=== PATIENT | male | born 1960 | race Caucasian/White ===

== ENCOUNTER 2019-06-16 09:04 | Outpatient (CLI) | payer MEDICARE, SELFPAY ==
--- NOTE | 2019-06-16 | ECHO_ITS ---
Patient Info Name: Joe Meyer Age: 58 years : 1960 Gender: Male Ht: 73 in Wt: 330 lbs BSA: 2.84 m2 HR: 65 bpm BP: 164 / 113 mmHg Heart Rhythm: Sinus Rhythm Exam Date: 06/16/2019 9:32 AM Exam Location: [facility] Patient Status: Outpatient Admit Date: 06/16/2019 Staff Ordering Physician: Abhijit, Lynn Perry APRN Gas Plumbing Inspector: Denita Schulz RDCS Attending Provider: Abhijit, Lynn Perry APRN Referring Physician: Jasmyne CHENEY; Exam Type: CA echo doppler color flow Study Info Indications R06.02 - Shortness of breath Complete two-dimensional, color flow and Doppler transthoracic echocardiogram is performed. Summary 1. Left ventricular systolic function is normal, estimated at 55-60%. 2. There is moderately increased left ventricular wall thickness. 3. The left ventricular diastolic function is grade I diastolic dysfunction. 4. Left atrial chamber dimension is mildly enlarged. 5. There is trace mitral valve regurgitation. 6. There is mild aortic valve sclerosis. 7. There is mild aortic valve regurgitation. 8. There is trace tricuspid valve regurgitation. 9. No pulmonary hypertension, estimated pulmonary arterial systolic pressure is 13 mmHg. Left Ventricle Left ventricular chamber dimension is normal. Left ventricular systolic function is normal, estimated at 55-60%. There is moderately increased left ventricular wall thickness. Left ventricular septal wall motion is normal. The left ventricular diastolic function is grade I diastolic dysfunction. Right Ventricle Right ventricular chamber dimension is normal. Right ventricular systolic function is normal. Left Atria Left atrial chamber dimension is mildly enlarged. Right Atria Right atrial chamber dimension is normal. Atrial Septum Intact interatrial septum visualized by color flow imaging. Aortic Valve The aortic valve is trileaflet. There is mild aortic valve sclerosis. There is no aortic valve stenosis. There is mild aortic valve regurgitation. Pulmonic Valve The pulmonic valve is normal. There is no pulmonic valve stenosis. There is no pulmonic regurgitation. Mitral Valve The mitral valve has normal leaflets. There is no mitral valve stenosis. There is trace mitral valve regurgitation. Tricuspid Valve The tricuspid valve leaflets are normal. There is no significant tricuspid valve stenosis. There is trace tricuspid valve regurgitation. No pulmonary hypertension, estimated pulmonary arterial systolic pressure is 13 mmHg. Pericardium/Pleural The pericardium appears normal. There is no pericardial effusion. Inferior Vena Cava Normal inferior vena cava with >50% collapse upon inspiration consistent with Empty right atrial pressure, 5 mmHg. Aorta The aortic root size at the sinus of Valsalva is normal. The prox ascending aorta size is normal. Left Ventricular Outflow Tract Name Value Normal LVOT 2D LVOT Diameter 2.3 cm LVOT Doppler LVOT Peak Gradient 4 mmHg LVOT Mean Gradient 2 mmHg LVOT VTI 21 cm
== END 2019-06-16 09:05 | disposition home or self-care (01) ==
PROVIDERS: PCP Family Medicine; Visit Provider Nurse Practitioner Family
DX: R06.02 Shortness of breath (principal); I51.7 Cardiomegaly; I35.2 Nonrheumatic aortic (valve) stenosis with insufficiency
CPT/HCPCS: 93306

== ENCOUNTER 2019-09-26 12:48 | Outpatient (CLI) | payer MEDICARE, SELFPAY ==
[2019-09-26 13:39] LABS: Basophils Absolute Auto 0.1 K/mm3 (0.0-0.1); Basophils Percent Auto 1.1 % (0.2-1.2); Eosinophils Absolute Auto 0.4 K/mm3 (0-0.3); Eosinophils Percent Auto 5.2 % (0-4.4); Hematocrit 34.2 % (42.0-52.0); Hemoglobin 10.1 g/dL (14.0-18.0); Immature Granulocyte Absolute 0.02 K/mm3 (0.00-0.031); Immature Granulocyte Percent A 0.3 % (0-0.5); Lymphocytes Absolute Auto 2.05 K/mm3 (0.9-3.2); Lymphocytes Percent Auto 28.3 % (18.3-44.2); Mean Corpuscular HGB Conc 29.5 g/dl (32-36); Mean Corpuscular Hemoglobin 21.4 pg (26-34); Mean Corpuscular Volume 72.6 fl (80-100); Mean Platelet Volume 11.4 fl (7.4-10.4); Monocytes Absolute Auto 0.6 K/mm3 (0.1-0.6); Neutrophils Absolute Auto 4.1 K/mm3 (1.3-6.7); Neutrophils Percent Auto 57.1 % (45.5-73.1); Platelet Count Result 217 k/mm3 (150-375); Red Blood Count 4.71 M/mm3 (4.6-6.20); Red Cell Distribution Width 17.3 % (11.5-14.5); White Blood Count 7.2 K/mm3 (4.5-10.0)
[2019-09-26 13:51] LABS: Hemoglobin A1C 6.5 % (<5.7)
[2019-09-26 14:08] LABS: Blood Urea Nitrogen 11 mg/dL (9-20); Calcium 8.5 mg/dL (8.4-10.2); Carbon Dioxide 27 mmol/L (22-30); Chloride 106 mmol/L (98-107); Estimated Glomerular Filt Rate > 60; Glucose 107 mg/dL (75-110); Potassium 3.9 mmol/L (3.4-5.0); Sodium 139 mmol/L (137-145)
[2019-09-26 14:11] LABS: Iron 33 ug/dL (49-181)
[2019-09-26 14:20] LABS: Percent Iron Saturation 7 % (20-50)
[2019-09-27 15:31] LABS: Ferritin 7.52 ng/mL (11.1-264)
== END 2019-09-26 12:49 | disposition home or self-care (01) ==
PROVIDERS: PCP Family Medicine; Visit Provider Nurse Practitioner Family
DX: R53.83 Other fatigue (principal); R73.01 Impaired fasting glucose; D64.9 Anemia, unspecified
CPT/HCPCS: 36415; 80048; 82607; 82728; 83036; 83540; 83550; 85025

== ENCOUNTER 2019-10-11 09:03 | Outpatient (CLI) | payer MEDICARE, SELFPAY ==
--- NOTE | 2019-10-11 11:00 | NEURO_ITS ---
Patient Number: [id number] Impression: # Complains of numbness all over with gait dysfunction and pain in legs. # Left mild Carpal Tunnel Syndrome. 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 # Abnormal needle/EMG exam with involvement of distal muscles. Nerve Conduction Studies Anti Sensory Summary Table Stim Site NR Peak (ms) P-T Amp (?V) Site1 Site2 Delta-P (ms) Dist (cm) Jermaine (m/s) Left Median Anti Sensory (2-3nd Digit) Wrist 3.6 24.3 Wrist 2-3nd Digit 3.6 14.0 39 Wrist 3.5 34.5 Wrist 2-3nd Digit 3.6 14.0 39 Right Median Anti Sensory (2-3nd Digit) Wrist 3.2 14.5 Wrist 2-3nd Digit 3.2 14.0 44 Wrist 3.2 28.2 Wrist 2-3nd Digit 3.2 14.0 44 Left Radial Anti Sensory (Base 1st Digit) Wrist 2.6 10.6 Wrist Base 1st Digit 2.6 0.0 Right Radial Anti Sensory (Base 1st Digit) Wrist 2.6 14.9 Wrist Base 1st Digit 2.6 0.0 Left Sup Fibular Anti Sensory (Ant Lat Mall) 14 cm 3.8 22.4 14 cm Ant Lat Mall 3.8 16.0 42 Right Sup Fibular Anti Sensory (Ant Lat Mall) 14 cm 3.7 20.9 14 cm Ant Lat Mall 3.7 16.0 43 Left Sural Anti Sensory (Lat Mall) Calf 4.3 4.8 Calf Lat Mall 4.3 16.0 37 Right Sural Anti Sensory (Lat Mall) Calf 3.0 12.9 Calf Lat Mall 3.0 16.0 53 Left Ulnar Anti Sensory (5th Digit) Wrist 2.7 18.0 Wrist 5th Digit 2.7 14.0 52 Right Ulnar Anti Sensory (5th Digit) Wrist 2.7 12.7 Wrist 5th Digit 2.7 14.0 52 Motor Summary Table Stim Site NR Onset (ms) O-P Amp (mV) Site1 Site2 Delta-0 (ms) Dist (cm) Jermaine (m/s) Left Median Motor (Abd Poll Brev) Wrist 4.4 2.2 Elbow Wrist 5.2 31.0 60 Elbow 9.6 1.9 Right Median Motor (Abd Poll Brev) Wrist 3.6 1.6 Elbow Wrist 5.6 33.0 59 Elbow 9.2 1.5 Left Peroneal Motor (Vastus Med) Ankle 6.4 0.4 Popit Ankle 12.9 42.0 33 Popit 19.3 0.3 Right Peroneal Motor (Vastus Med) Ankle 4.8 1.5 Popit Ankle 11.8 41.0 35 Popit 16.6 1.0 Left Tibial Motor (Abd Nj Brev) Ankle 5.8 1.1 Knee Ankle 11.1 46.0 41 Knee 16.9 1.0 Right Tibial Motor (Abd Nj Brev) Ankle 4.7 1.1 Knee Ankle 12.9 47.0 36 Knee 17.6 1.2 Left Ulnar Motor (Abd Dig Minimi) Wrist 3.0 4.7 A Elbow Wrist 5.5 31.0 56 A Elbow 8.5 3.3 Right Ulnar Motor (Abd Dig Minimi) Wrist 3.2 2.9 A Elbow Wrist 5.6 32.0 57 A Elbow 8.8 2.4 F Wave Studies NR F-Lat (ms) L-R F-Lat (ms) Left Median (Mrkrs) (Abd Poll Brev) 32.87 0.41 Right Median (Mrkrs) (Abd Poll Brev) 32.46 0.41 Left Peroneal (Mrkrs) (EDB) NO RESPONSE NR Right Peroneal (Mrkrs) (EDB) 69.73 Left Tibial (Mrkrs) (Abd Hallucis) 68.57 0.99 Right Tibial (Mrkrs) (Abd Hallucis) 67.58 0.99 Left Ulnar (Mrkrs) (Abd Dig Min) 33.43 0.71 Right Ulnar (Mrkrs) (Abd Dig Min) 32.71 0.71 EMG Side Muscle Nerve Root Ins Act Fibs Amp Dur Recrt Comment Right 1stDorInt Ulnar C8-T1 Nml Nml Nml Nml Nml Right Ext Indicis Radial (Post Int) C7-8 Nml Nml Nml Nml Nml Right Ext Digitorum Radial (Post Int) C7-8 Nml Nml Nml Nml Nml Right BrachioRad Radial C5-6 Nml Nml Nml Nml Nml Right PronatorTeres Median C6-7 Nml Nml Nml Nml Nml Right Abd Poll Brev Median C8-T1 Nml Nml Nml Nml Nml
== END 2019-10-11 09:04 | disposition home or self-care (01) ==
PROVIDERS: PCP Family Medicine; Visit Provider Psychiatry & Neurology Neurology
DX: G62.9 Polyneuropathy, unspecified (principal); G56.02 Carpal tunnel syndrome, left upper limb
CPT/HCPCS: 95886; 95913

== ENCOUNTER 2019-11-03 16:35 | Outpatient (CLI) | payer MEDICARE, SELFPAY ==
--- NOTE | ~2019-11-03 | XR_ITS ---
EXAMINATION: XR shoulder RT min 2V INDICATION: Right shoulder pain TECHNIQUE: Four views of the right shoulder are submitted. COMPARISON: None FINDINGS: Normal alignment. No fracture. Glenohumeral and acromioclavicular joint spaces demonstrate mild osteoarthritis. Soft tissues are unremarkable. IMPRESSION: 1. No acute osseous abnormality. Reviewed, dictated and finalized at location A.
--- NOTE | ~2019-11-03 | XR_ITS ---
EXAMINATION: XR shoulder LT min 2V INDICATION: Left shoulder pain after fall TECHNIQUE: Four views of the left shoulder are submitted. COMPARISON: 10/22/2016 FINDINGS: Normal alignment. No fracture. Again noted is moderate osteoarthritis of the glenohumeral j oint. There appears to have been interval surgical change involving the acromioclavicular joint. Soft tissues are unremarkable. IMPRESSION: 1. No acute osseous abnormality. Reviewed, dictated and finalized at location A.
--- NOTE | ~2019-11-03 | XR_ITS ---
EXAMINATION:XR cervical spine 4-5V DATE: 11/03/2019 17:19 INDICATION: Neck pain TECHNIQUE: AP, lateral, lateral swimmers and odontoid views of the cervical spine are provided. COMPARISON: 10/23/2019 FINDINGS: Alignment is normal. The odontoid is intact. No fracture is identified. The vertebral body heights are maintained. There is moderate loss of intervertebral disc space height at C5-6 and C6-7. Degenerative osteophytes project from the anterior endplates of multiple vertebral bodies. Prevertebr al soft tissues are normal. There is moderate multilevel facet and mild multilevel uncovertebral join t osteoarthritis. IMPRESSION: 1. Moderate cervical spondylosis without acute findings or significant interval change. Reviewed, dictated and finalized at location A.
--- NOTE | ~2019-11-03 | XR_ITS ---
EXAMINATION: XR lumbar spine 2-3V DATE: 11/03/2019 17:20 INDICATION: Low back pain TECHNIQUE: Anteroposterior and lateral views of the lumbar spine, and cone-down lateral view of the l umbosacral junction were obtained. COMPARISON: CT, 12/08/2017 FINDINGS: There is unchanged mild loss of intervertebral disc space height at L4-5. No fracture is id entified. The vertebral body heights are maintained. Alignment is normal. There is calcified atherosc lerosis. IMPRESSION: 1. Mild lumbar spondylosis without acute findings or significant interval change. Reviewed, dictated and finalized at location A. IMPRESSION: 1. Mild lumbar spondylosis without acute findings or significant interval patricia lovelace
--- NOTE | ~2019-11-03 | XR_ITS ---
EXAMINATION: XR thoracic spine 3V DATE: 11/03/2019 17:20 INDICATION: Back pain after fall TECHNIQUE: AP, lateral and lateral swimmer's views of the thoracic spine were obtained. COMPARISON: 11/06/2016 FINDINGS: There is chronic mild anterior wedging in the midthoracic spine. No fracture is identified. The vertebral body heights and alignment are normal. There is mild loss of intervertebral disc space height in the midthoracic spine. Small degenerative osteophytes project from the anterior endplates of multiple vertebral bodies. IMPRESSION: 1. Mild thoracic spondylosis without acute findings or significant interval change. Reviewed, dictated and finalized at location A. IMPRESSION: 1. Mild thoracic spondylosis without acute findings or significant interval toan e.
--- NOTE | ~2019-11-03 | XR_ITS ---
EXAMINATION: XR sacrum coccyx min 2V INDICATION: Sacral pain after fall TECHNIQUE: Three views of the sacrum and coccyx are obtained. COMPARISON: 10/22/2016 FINDINGS: There is no fracture. Bone alignment is normal. The soft tissues are unremarkable. There is mild lower lumbar spondylosis. IMPRESSION: 1. No acute osseous abnormality. Reviewed, dictated and finalized at location A.
== END 2019-11-03 16:36 | disposition home or self-care (01) ==
PROVIDERS: PCP Family Medicine; Visit Provider Nurse Practitioner
DX: M47.896 Other spondylosis, lumbar region (principal); M47.894 Other spondylosis, thoracic region; M47.892 Other spondylosis, cervical region
CPT/HCPCS: 72050; 72072; 72100; 72220; 73030

== ENCOUNTER 2019-11-03 17:18 | Emergency (ER) | payer MEDICARE, SELFPAY ==
[2019-11-03 17:20] VITALS: BP 140/85; PULSE 78; RESP 20; TEMP 36; O2SAT 97
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
[2019-11-03 18:04] VITALS: PULSE 79
[2019-11-03 18:09] VITALS: BP 143/89; PULSE 76; RESP 10; O2SAT 98
[2019-11-03 18:38] VITALS: BP 144/80; PULSE 76; RESP 17; O2SAT 100
[2019-11-03 19:19] VITALS: BP 152/95; PULSE 77; RESP 18; O2SAT 98
== END 2019-11-03 19:20 | disposition home or self-care (01) ==
PROVIDERS: Emergency Provider Emergency Medicine; PCP Family Medicine
DX: I10 Essential (primary) hypertension (principal); R20.2 Paresthesia of skin; Z87.891 Personal history of nicotine dependence
CPT/HCPCS: 99282

== ENCOUNTER 2019-12-06 13:44 | Outpatient (CLI) | payer MEDICARE, SELFPAY ==
--- NOTE | ~2019-12-06 | MR_ITS ---
EXAMINATION: MR cervical spine wo con DATE: 12/06/2019 14:38 INDICATION: Neck pain. TECHNIQUE: Magnetic resonance imaging (MRI) of the cervical spine was performed without intravenous c ontrast. Sequences included sagittal T2-weighted FSE, sagittal STIR FSE, sagittal T1-weighted FSE, ax ial MERGE, and axial T2-weighted FSE. COMPARISON: Cervical spine radiographs 11/03/2019 FINDINGS: Bone alignment is normal. Vertebral body heights are normal. There is mildly decreased disc height at C3-C4 and C6-C7. The spinal cord signal intensity is normal. The following disc levels are specifically discussed: C2-C3: The disc does not extend beyond the endplate margin. There is mild left uncovertebral joint os teoarthritis. There is mild right and severe left facet joint osteoarthritis. There is moderate left neural foraminal stenosis. There is no central canal stenosis. C3-C4: The disc is bulging. There is mild right and severe left uncovertebral joint osteoarthritis. T here is mild right and moderate left facet joint osteoarthritis. There is severe left neural foramina l stenosis. There is mild central canal stenosis. C4-C5: The disc does not extend beyond the endplate margin. There is mild bilateral uncovertebral jun nt osteoarthritis. There is moderate left facet joint osteoarthritis. There is mild left neural alonso inal stenosis. There is no central canal stenosis. C5-C6: The disc is bulging. There is mild right and moderate left uncovertebral joint osteoarthritis. There is mild left facet joint osteoarthritis. There is mild left neural foraminal stenosis. There i s mild central canal stenosis. C6-C7: The disc is bulging. There is severe bilateral uncovertebral joint osteoarthritis. There is mi ld left facet joint osteoarthritis. There is mild bilateral neural foraminal stenosis. There is mild central canal stenosis. C7-T1: The disc does not extend beyond the endplate margin. There is no uncovertebral joint osteoarth ritis. There is mild bilateral facet joint osteoarthritis. There is no neural foraminal stenosis. The re is no central canal stenosis. IMPRESSION: 1. Moderate cervical spondylosis. Reviewed, dictated and finalized at location B.
== END 2019-12-06 13:45 | disposition home or self-care (01) ==
PROVIDERS: PCP Family Medicine; Visit Provider Psychiatry & Neurology Neurology
DX: M47.892 Other spondylosis, cervical region (principal)
CPT/HCPCS: 72141

== ENCOUNTER 2019-12-14 16:14 | Outpatient (CLI) | payer MEDICARE, SELFPAY ==
[2019-12-14 18:05] LABS: Basophils Absolute Auto 0.1 K/mm3 (0.0-0.1); Basophils Percent Auto 1.1 % (0.2-1.2); Eosinophils Absolute Auto 0.4 K/mm3 (0-0.3); Hematocrit 33.8 % (42.0-52.0); Hemoglobin 10.1 g/dL (14.0-18.0); Immature Granulocyte Absolute 0.03 K/mm3 (0.00-0.031); Immature Granulocyte Percent A 0.3 % (0-0.5); Immature Platelet Fraction Pct 6.7 % (0.9-11.2); Lymphocytes Absolute Auto 2.08 K/mm3 (0.9-3.2); Lymphocytes Percent Auto 23.3 % (18.3-44.2); Mean Corpuscular HGB Conc 29.9 g/dl (32-36); Mean Corpuscular Hemoglobin 20.7 pg (26-34); Mean Corpuscular Volume 69.3 fl (80-100); Monocytes Absolute Auto 0.8 K/mm3 (0.1-0.6); Monocytes Percent Auto 9.1 % (2.6-8.5); Neutrophils Absolute Auto 5.5 K/mm3 (1.3-6.7); Neutrophils Percent Auto 62.2 % (45.5-73.1); Platelet Count Result 229 k/mm3 (150-375); Red Blood Count 4.88 M/mm3 (4.6-6.20); Red Cell Distribution Width 18.6 % (11.5-14.5); White Blood Count 8.9 K/mm3 (4.5-10.0)
[2019-12-14 18:31] LABS: Alanine Aminotransferase 43 U/L (4-50); Albumin Level 4.3 g/dL (3.5-5.1); Alkaline Phosphatase 90 U/L (38-126); Anion Gap 7 mmol/L (8-16); Aspartate Amino Transferase 39 U/L (17-59); Bilirubin,Total 0.3 mg/dL (0.2-1.3); Blood Urea Nitrogen 14 mg/dL (9-20); Carbon Dioxide 27 mmol/L (22-30); Chloride 106 mmol/L (98-107); Cholesterol 182 mg/dL (0-200); Estimated Glomerular Filt Rate > 60; Glucose 96 mg/dL (75-110); HDL Direct 34 mg/dL; Sodium 140 mmol/L (137-145); Triglycerides 246 mg/dL (<150)
[2019-12-14 18:42] LABS: LDL Cholesterol Direct 108 mg/dL
[2019-12-14 18:59] LABS: Hypochromasia 1+ (NORMAL); Platelet Estimate Adequate (Adequate)
[2019-12-14 19:00] LABS: Anisocytosis 2+ (NORMAL)
[2019-12-14 19:01] LABS: Total Triiodothyronine (T3) 1.37 NG/ML (0.97-1.69)
[2019-12-14 19:03] LABS: Prostate Specific Antigen 0.9 ng/mL (< OR = 4.0)
[2019-12-14 19:40] LABS: Creatinine Urine 215.3 mg/dL
[2019-12-14 19:46] LABS: MALB Creatinine Ratio 13.8 mg/g (0-30); Microalbumin Urine Random 29.7 mg/L (0-16.7)
[2019-12-15 02:16] LABS: Free T4 Free Thyroxine 0.93 ng/mL (0.78-2.19); Vitamin D 25 Hydroxy 50.1 ng/mL
[2019-12-19 11:28] LABS: Metanephrine, Free <25 pg/mL (<=57); Normetanephrine, Free 125 pg/mL (<=148); Total, Free (MN + NMN) 125 pg/mL (<=205)
[2019-12-21 15:09] LABS: Renin 0.49 ng/mL/h (0.25-5.82)
== END 2019-12-14 16:15 | disposition home or self-care (01) ==
PROVIDERS: PCP Family Medicine; Visit Provider Nurse Practitioner
DX: E55.9 Vitamin D deficiency, unspecified (principal); I10 Essential (primary) hypertension; R80.9 Proteinuria, unspecified; Z12.5 Encounter for screening for malignant neoplasm of prostate; Z13.29 Encounter for screening for other suspected endocrine disorder; Z13.6 Encounter for screening for cardiovascular disorders; Z13.0 Encounter for screening for diseases of the blood and blood-forming organs and certain disorders involving the immune mechanism
CPT/HCPCS: 36415; 80053; 80061; 82043; 82306; 82542; 83835; 84153; 84244; 84439; 84443; 84480; 85025; 85055; G0103

== ENCOUNTER 2019-12-16 09:37 | Outpatient (CLI) | payer MEDICARE, SELFPAY ==
[2019-12-16 12:36] LABS: Total Volume 24 Hour Urine 1600 ml
[2019-12-16 12:39] LABS: Creatinine 24 Hour Urine 1.9 gm/24 (1.0-2.0); Creatinine Urine 119.7 mg/dL
[2019-12-20 14:09] LABS: Calculated Total (E+NE) 91 mcg/24 h (26-121); Dopamine, 24hr Urine 223 mcg/24 h (52-480); Norepinephrine, 24hr Urine 91 mcg/24 h (15-100)
[2019-12-20 21:44] LABS: Vanillymandelic Acid 24 Hr Ur 3.4 mg/24 h (<=6.0)
== END 2019-12-16 09:38 | disposition home or self-care (01) ==
LOC: ANHLAB 09:41
PROVIDERS: PCP Family Medicine; Visit Provider Nurse Practitioner
DX: I10 Essential (primary) hypertension (principal); E55.9 Vitamin D deficiency, unspecified; R80.9 Proteinuria, unspecified
CPT/HCPCS: 36415; 81050; 82384; 82570; 84585

== ENCOUNTER 2020-02-03 03:33 | Outpatient (CLI) | payer MEDICARE, SELFPAY ==
[2020-02-03 17:45] LABS: SARS-CoV-2 RNA PCR Negative
== END 2020-02-03 03:34 | disposition home or self-care (01) ==
LOC: ANHCOVIDDT 03:33
PROVIDERS: PCP Family Medicine; Visit Provider Psychiatry & Neurology Neurology
DX: Z01.812 Encounter for preprocedural laboratory examination (principal); Z20.828 Contact with and (suspected) exposure to other viral communicable diseases
CPT/HCPCS: 87635; C9803; U0003

== ENCOUNTER 2020-02-06 07:53 | Outpatient (CLI) | payer MEDICARE, SELFPAY ==
[2020-02-01 14:04] VITALS: BMI 46.1
[2020-02-06] VITALS (9 sets, daily range): BP systolic 146–177; BP diastolic 74–96; PULSE 68–75; RESP 12–20; O2SAT 94–98
--- NOTE | ~2020-02-06 | XR_ITS ---
EXAMINATION: XR lumbar puncture diagnostic DATE: 02/06/2020 10:16 INDICATION: Multiple sclerosis. TECHNIQUE: The procedure including the risks, benefits, and alternatives was discussed with the patie nt. Risks discussed included spinal headache, cerebrospinal fluid leak, bleeding, and infection. The patient understood the risks and agreed to proceed. A timeout was performed to verify the patient' s name, date of , and procedure to be performed. The skin overlying the L2-L3 level was prepped and draped in usual sterile fashion. Subcutaneous 1% lidocaine was used for local anesthesia. A 20 gauge spinal needle was advanced under fluoroscopic guidance. The needle was removed and the entry s ite was cleaned and dressed. There were no immediate complications. Fluoroscopy exposure time was 0. 1 minutes. The total number of images was 2. FINDINGS: Real-time fluoroscopy demonstrates the needle at the L2-L3 level. The opening pressure was 14 cm water (Normal range is variably defined as 6-20 cm water and up to 25 cm water in obese patient s. Pressure >25 cm water is one of the modified Dandy criteria for idiopathic intracranial hypertensi on). 14 mL of clear, colorless fluid was collected in 4 tubes. IMPRESSION: 1. Successful fluoro-guided lumbar puncture. Reviewed, dictated and finalized at location A.
[2020-02-06 08:37] LABS: Immature Platelet Fraction Pct 7.3 % (0.9-11.2); Mean Platelet Volume 10.3 fl (7.4-10.4); Platelet Count Result 153 k/mm3 (150-375)
[2020-02-06 08:48] LABS: INR 0.9; Prothrombin Time 11.9 Seconds (11.1-14.7)
[2020-02-06 08:49] LABS: Partial Thromboplastin Time 31.4 SECONDS (22.3-36.8)
[2020-02-06 10:21] LABS: Glucose CSF 79 mg/dL (40-70); Total Protein CSF 81 mg/dL (12-60)
[2020-02-06 11:05] LABS: Appearance CSF Clear (Clear); CSF source CSF; Color CSF Colorless (Colorless); Lymphocytes CSF 64 % (40-80); Monocytes CSF 35 % (15-45); Neutrophils CSF 1 % (0-6); Nucleated Cell CSF 6 /uL (0-5); Red Blood Cell CSF 12 (0-2)
[2020-02-09 19:41] LABS: VDRL Quantitative CSF Nonreactive (Nonreactive)
[2020-02-10 19:05] LABS: Angiotensi Converting Enzy CSF 3 U/L (<=15)
[2020-02-15 04:56] LABS: Albumin, CSF 30.9 mg/dL (8.0-42.0); Albumin, Serum 4.3 g/dL (3.5-5.2); IgG Index, CSF 0.54 (<0.66); IgG, CSF 3.9 mg/dL (0.8-7.7); Immunoglobulin G, Serum 999 mg/dL (600-1640); Myelin Basic Protein, CSF <2.0 mcg/L (2.0-4.0); Synthesis Rate IgG, CSF -0.1 mg/24 h (-9.9-3.3)
== END 2020-02-06 11:50 | disposition home or self-care (01) ==
PROVIDERS: Radiology Diagnostic Radiology; PCP Family Medicine; Visit Provider Psychiatry & Neurology Neurology
DX: G35 Multiple sclerosis (principal)
CPT/HCPCS: 36415; 62328; 82040; 82042; 82164; 82784; 82945; 83873; 83916; 84157; 85049; 85055; 85610; 85730; 86592; 87070; 88104; 88108; 88305; 89051

== ENCOUNTER 2020-04-19 12:32 | Outpatient (CLI) | payer MEDICARE, SELFPAY ==
--- NOTE | ~2020-04-19 | MR_ITS ---
EXAMINATION: MR cervical spine wo/w con EXAM DATE: 04/19/2020 13:35 INDICATION: Other cervical disc degeneration. Neck pain. Bilateral shoulder pain. TECHNIQUE: Multi-sequential, multiplanar MR images of the cervical spine were obtained without contra st. Axial T2, axial T2 MERGE sequence. Sagittal T1, T2, T2 fat saturation images also obtained. Axi al T1 weighted sequence. Patient was then injected with 20 mL Multihance intravenous contrast and re imaged. Postcontrast axial and sagittal T1-weighted fat saturation sequences were obtained. Compar yelena is made to prior examination from 12/06/2019. FINDINGS: There is moderate diffuse loss of the C5 and C6 vertebral body heights, mild loss of the o ther cervical vertebral body heights. Mild to moderate cervical disc disease. There are no suspicious marrow signal abnormalities. The spinal cord signal intensity and intrinsic morphology is normal. Ce rvicomedullary junction is normal in appearance. Level by level evaluation: Axial images are limited from motion. C2-C3: Disc does not extend beyond the endplate margin. Uncovertebral joint arthropathy: Mild left. Facet joint arthropathy: Severe left, mild right. Neural foraminal stenosis: Probably moderate left. Central canal stenosis: No stenosis. C3-C4: There is a mild diffuse disc bulge. Uncovertebral joint arthropathy: Moderate to severe left, mild to moderate right. Facet joint arthropathy: Moderate bilateral. Neural foraminal stenosis: Severe left, mild right. Central canal stenosis: Mild. C4-C5: There is a minimal diffuse disc bulge. Uncovertebral joint arthropathy: Mild to moderate bilateral. Facet joint arthropathy: Moderate left, mild right. Neural foraminal stenosis: Mild to moderate left, mild right. Central canal stenosis: No stenosis. C5-C6: There is a mild diffuse disc bulge. Uncovertebral joint arthropathy: Moderate bilateral. Facet joint arthropathy: Moderate left, mild to moderate right. Neural foraminal stenosis: Moderate left, mild right. Central canal stenosis: Mild. C6-C7: There is a mild diffuse disc bulge. Uncovertebral joint arthropathy: Moderate to severe bilateral. Facet joint arthropathy: Mild bilateral. Neural foraminal stenosis: Moderate left, mild to moderate right. Central canal stenosis: Mild. C7-T1: There is a minimal diffuse disc bulge. Uncovertebral joint arthropathy: Moderate left, mild right. Facet joint arthropathy: Mild bilateral. Neural foraminal stenosis: No stenosis. Central canal stenosis: No stenosis. Difficult to appreciate any significant interval change compared to previous exam. IMPRESSION: 1. Limited from motion. 2. Scattered arthropathy with significant neural foraminal stenosis at some levels. Reviewed, dictated and finalized at location A. 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 Limited from motion. 2. Scattered arthropathy with significant neural foraminal stenosis at some le vels.
[2020-04-19 12:52] LABS: Estimated Glomerular Filt Rate > 60
== END 2020-04-19 12:33 ==
PROVIDERS: PCP Family Medicine; Visit Provider Nurse Practitioner Family
DX: M50.30 Other cervical disc degeneration, unspecified cervical region (principal); M47.816 Spondylosis without myelopathy or radiculopathy, lumbar region
CPT/HCPCS: 72156; A9577

== ENCOUNTER 2020-05-02 06:33 | Outpatient (CLI) | payer MEDICARE, SELFPAY ==
--- NOTE | ~2020-05-02 | XR_ITS ---
EXAMINATION: XR abdomen/kub 1V EXAM DATE: 05/02/2020 07:15 INDICATION: Hematuria. TECHNIQUE: Frontal projection(s) of the abdomen for interpretation. There is no prior study for ninfa zeng. FINDINGS: Possible identification of 4 mm left superior calyceal stone, although this is also obscur ed by colonic stool. Nonobstructive bowel gas pattern. Mild bony degenerative changes. There is no or ganomegaly. IMPRESSION: Possible identification left nephrolithiasis. Reviewed, dictated and finalized at location A. 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
--- NOTE | ~2020-05-02 | CT_ITS ---
EXAMINATION: CT abdomen pelvis wo/w con EXAM DATE: 05/02/2020 07:47 INDICATION: Hematuria. TECHNIQUE: Spiral CT of the abdomen and pelvis was performed without contrast. The patient was then injected with small bolus intravenous Omnipaque 350, followed by delay of approximately 10 minutes to allow collecting system to opacify. A post contrast scan abdomen and pelvis was performed during inj ection of remaining contrast. A total of 130 cc intravenous contrast was administered. The dose-fortino th product (DLP) for this examination was 3342.29 mGy-cm. The exposure was tailored according to pat ient size (auto mA exposure control), and iterative reconstruction (ASIR) was used as additional dose reduction technique. There is no prior study for comparison. FINDINGS: There is a 4 mm left superior calyceal stone. There are several punctate bilateral calyceal stones. There is a 5 cm left renal cyst. The kidneys enhance symmetrically. There are no suspiciou s renal lesions. The calyces and opacified portions of ureters are unremarkable, without filling def ects or focal suspicious strictures. The bladder is unremarkable. The prostate is unremarkable. There is hepatic steatosis without suspicious focal lesion identified. Spleen, adrenal glands, pancre as are unremarkable. Gallbladder is unremarkable. No biliary obstruction. There is no retroperiton eal or pelvic lymphadenopathy. There is mild scattered arteriosclerotic disease. The appendix is normal. The stomach and small bowel are unremarkable. There is mild sigmoid colonic diverticulosis. There is no adjacent inflammatory change to suggest diverticulitis. There is expec elias amount of colonic stool. No free intraperitoneal gas. Borderline cardiomegaly. The lung base s are unremarkable. There are no osteoblastic or osteolytic lesions identified. IMPRESSION: 1. Bilateral nephrolithiasis. 2. Hepatic steatosis. 3. Mild colonic diverticulosis. Reviewed, dictated and finalized at location A. CE LIEUTENANT PRECINCT
[2020-05-02 07:24] LABS: Estimated Glomerular Filt Rate > 60
== END 2020-05-02 06:34 | disposition home or self-care (01) ==
LOC: ANHIMG 06:35
PROVIDERS: PCP Family Medicine; Visit Provider Nurse Practitioner Adult Health
DX: R31.9 Hematuria, unspecified (principal); N20.0 Calculus of kidney; K76.0 Fatty (change of) liver, not elsewhere classified; K57.30 Diverticulosis of large intestine without perforation or abscess without bleeding
CPT/HCPCS: 74018; 74178; Q9967

== ENCOUNTER 2020-05-18 09:57 | Outpatient (CLI) | payer MEDICARE, SELFPAY ==
--- NOTE | 2020-05-18 10:03 | EST_ITS ---
Patient Info Name: Joe Meyer Age: 59 years : 1960 Gender: Male Ht: 73 in Wt: 240 lbs BSA: 2.40 m2 HR: 66 bpm BP: 161 / 101 mmHg Exam Date: 05/18/2020 10:27 AM Exam Location: [facility] Patient Status: Outpatient Admit Date: 05/18/2020 Staff Ordering Physician: Taras Don DO Attending Provider: TARAS DON DO Referring Physician: Gamal VILLASEÑOR; Exercise Technologist: Vanda Irizarry RDCS Exercise Physician: Taras Don DO Exam Type: CA stress echo Study Info Indications R07.89 - Other chest pain Treadmill exercise stress echocardiogram is performed. Summary 1. 1. Inconclusive Vadim exercise stress test for ischemic ST changes by ECG criteria due to achieving only 59% MPHR and limited by shortness of breath. 2. 2. Poor functional capacity, achieving 3 METs of workload. 3. 3. Appropriate HR response to exercise. 4. 4. Appropriate HR recovery at 1 minute post exercise. 5. 5. Baseline hypertension with hypertensive response to exercise. 6. 6. Negative stress echocardiogram for ischemia by wall motion analysis at the heart rate level achieved. 7. 7. Patient informed of the above results. Stress Echo Findings Left Ventricle Appropriate increase in LV endocardial thickening with systole. Appropriate augmentation of contractility with systole. No wall motion abnormality. Left Ventricle Normal LV systolic function, no wall motion abnormality. Protocol: Vadim Stress ECG Details Stage: REST Duration (min): 8 min : 38 sec Speed (mph): 0.0 Grade (%): 0 HR (bpm): 65 SBP (mmHg): 161 DBP (mmHg): 101 METS: --- Stage: REST Duration (min): 20 min : 44 sec Speed (mph): 0.0 Grade (%): 0 HR (bpm): 71 SBP (mmHg): 161 DBP (mmHg): 101 METS: --- Stage: STAGE 1 Duration (min): 1 min : 0 sec Speed (mph): 1.7 Grade (%): 10 HR (bpm): 89 SBP (mmHg): 161 DBP (mmHg): 101 METS: --- Stage: STAGE 1 Duration (min): 1 min : 28 sec Speed (mph): 1.7 Grade (%): 10 HR (bpm): 95 SBP (mmHg): 161 DBP (mmHg): 101 METS: --- Stage: RECOVERY Duration (min): 0 min : 32 sec Speed (mph): 0.0 Grade (%): 0 HR (bpm): 95 SBP (mmHg): 161 DBP (mmHg): 101 METS: --- Stage: RECOVERY Duration (min): 1 min : 31 sec Speed (mph): 0.0 Grade (%): 0 HR (bpm): 80 SBP (mmHg): 161 DBP (mmHg): 101 METS: --- Stage: RECOVERY Duration (min): 2 min : 31 sec Speed (mph): 0.0 Grade (%): 0 HR (bpm): 74 SBP (mmHg): 161 DBP (mmHg): 101 METS: --- Stage: RECOVERY Duration (min): 3 min : 32 sec Speed (mph): 0.0 Grade (%): 0 HR (bpm): 71 SBP (mmHg): 210 DBP (mmHg): 108 METS: --- Stage: RECOVERY Duration (min): 4 min : 31 sec Speed (mph): 0.0 Grade (%): 0 HR (bpm): 68 SBP (mmHg): 210 DBP (mmHg): 108 METS: --- Stage: RECOVERY Duration (min): 5 min : 31 sec Speed (mph): 0.0 Grade (%): 0 HR (bpm): 74 SBP (mmHg): 216 DBP
== END 2020-05-18 09:58 | disposition home or self-care (01) ==
PROVIDERS: PCP Family Medicine; Visit Provider Internal Medicine Cardiovascular Disease
DX: R07.9 Chest pain, unspecified (principal)
CPT/HCPCS: 93351

== ENCOUNTER 2020-06-06 13:53 | Emergency (ER) | payer MEDICARE, SELFPAY ==
[2020-06-06 14:01] VITALS: BP 134/91; PULSE 72; RESP 18; TEMP 36.9; O2SAT 100
--- NOTE | 2020-06-06 14:01 | ECG_ITS ---
Measurements Intervals [place] Rate: 72 P: 27 MD: 155 QRS: 26 QRSD: 193 T: -21 QT: 451 QTc: 494 Interpretive Statements SINUS RHYTHM RIGHT BUNDLE BRANCH BLOCK BASELINE WANDER- I, II, III ABNORMAL ECG Electronically Signed On 06-06-2020 15:09:59 [employer] by Taras Yeung D.O.
[2020-06-06 14:17] LABS: Basophils Absolute Auto 0.1 K/mm3 (0.0-0.1); Basophils Percent Auto 1.3 % (0.2-1.2); Eosinophils Absolute Auto 0.3 K/mm3 (0-0.3); Eosinophils Percent Auto 4.6 % (0-4.4); Hematocrit 38.5 % (42.0-52.0); Hemoglobin 12.7 g/dL (14.0-18.0); Immature Granulocyte Absolute 0.02 K/mm3 (0.00-0.031); Immature Granulocyte Percent A 0.3 % (0-0.5); Lymphocytes Absolute Auto 2.18 K/mm3 (0.9-3.2); Lymphocytes Percent Auto 32.2 % (18.3-44.2); Mean Corpuscular Hemoglobin 28.2 pg (26-34); Mean Corpuscular Volume 85.6 fl (80-100); Mean Platelet Volume 10.9 fl (7.4-10.4); Monocytes Absolute Auto 0.7 K/mm3 (0.1-0.6); Monocytes Percent Auto 9.9 % (2.6-8.5); Neutrophils Absolute Auto 3.5 K/mm3 (1.3-6.7); Neutrophils Percent Auto 51.7 % (45.5-73.1); Platelet Count Result 172 k/mm3 (150-375); Red Cell Distribution Width 14.9 % (11.5-14.5); White Blood Count 6.8 K/mm3 (4.5-10.0)
[2020-06-06 14:31] LABS: Anion Gap 11 mmol/L (8-16); Blood Urea Nitrogen 17 mg/dL (9-20); Calcium 9.1 mg/dL (8.4-10.2); Carbon Dioxide 23 mmol/L (22-30); Chloride 108 mmol/L (98-107); Estimated CRCL calculation 108 ml/min; Estimated Glomerular Filt Rate > 60; Glucose 106 mg/dL (75-110); Potassium 3.9 mmol/L (3.4-5.0); Sodium 142 mmol/L (137-145)
--- NOTE | 2020-06-06 14:55 | PC.NURSE ---
Addendum entered by Gilbert Chaney RN 06/06/20 15:31: Pt did not inform staff that he was leaving or going to his car. Original Note: Pt noted to be leaving via wheelchair, rolling down [address] into the main parking lot.
--- NOTE | 2020-06-06 16:05 | PC.NURSE ---
Wheelchair that patient was in brought back into waiting room by a visitor. Assume pt had left without being seen after triage.
== END 2020-06-06 16:05 | disposition left against medical advice (07) ==
PROVIDERS: Emergency Provider Emergency Medicine; PCP Family Medicine
DX: R06.02 Shortness of breath (principal)
CPT/HCPCS: 36415; 80048; 85025; 93005; 99199

== ENCOUNTER 2020-06-28 07:58 | Outpatient (CLI) | payer MEDICARE, SELFPAY ==
--- NOTE | ~2020-06-28 | XR_ITS ---
EXAMINATION: XR barium swallow modified EXAM DATE: 06/28/2020 09:21 INDICATION: Dysphagia. TECHNIQUE: Modified barium esophagram was performed by myself to administered fluoroscopy, in conjun ction with speech pathologist who administered barium in varying consistencies as per speech patholog ist documentation. This was recorded on tape. The DAP for this procedure was 1.6 Gycm2. FINDINGS: Oral stage: Adequate function. Pharyngeal phase: Small penetration with liquids, ejected. Aspiration: None. Laryngeal sensitivity: Present. IMPRESSION: Patient tolerated oral feedings in the upright position. Please refer to speech patholo gist findings and specific feeding recommendations. Reviewed, dictated and finalized at location A. IMPRESSION: Patient tolerated oral feedings in the upright position. Please r efer to speech pathologist findings and specific feeding recommendations.
--- NOTE | 2020-06-28 15:47 | STOPEVAL ---
MODIFIED BARIUM SWALLOW EVALUATION: Thank you for referring Joe Quintana to [facility].? Attending Provider: Lynn Medley, PHYSICAL DIRECTOR/Dr Tucker fax #: [phone] *ST Outpatient Evaluation Outpatient Past Medical History Neurological History Hx Other Neurological Disorders Yes: NEW ONSET NEUROPATHY LOWER LIMBS/ L ARM Cardiovascular History Hx Cardiac Catheterization Yes Hx Hypercholesterolemia Yes Hx Hypertension Yes Respiratory History Hx Chronic Obstructive Pulmonary Disease Yes (COPD) Hx Other Respiratory Disorders Yes: SHORTNESS OF BREATH Gastrointestinal History Hx Gastroesophageal Reflux Disease Yes Genitourinary History Hx Benign Prostatic Hyperplasia Yes Musculoskeletal History Hx Back Pain Yes Hx Other Musculoskeletal Disorders Yes: NEW ONSET MUSCLE WEAKNESS - USING CANE FOR AMBULATION Hematological History Hx Hematological Disorders No Significant History Endocrine History Hx Endocrine Disorders No Significant History HEENT History Hx Dental Problems Yes: ALL TEETH EXTRACTED Integumentary History Hx Skin Disorders No Significant History Reproductive History Hx Reproductive Disorders No Significant History Psychosocial History Hx Anxiety Yes Hx Depression Yes Pain History Has Past Pain Affected Your Daily Life Yes: BACK PAIN/LEGS/FEET Anesthesia History Hx Anesthesia Reactions No Significant History Modified Barium Swallow Evaluation Recent Swallowing History Reports Dysphagia Yes History of Dysphagia No Other Related History reports feeling achy,dizzy upon standing, anxious; worse as time goes on Other Factors Impacting Dysphagia None History of Pneumonia No Reported Difficult Consistencies Solids Intake Method Prior to Swallow Oral Evaluation Diet Prior to Swallow Evaluation Regular, Level 7 Liquid Consistency Prior to Swallow Thin (0) Evaluation Consistency Thin Uncontrolled 2 Method of Presentation Straw Oral Preparatory Symptoms None Oral Phase Symptoms None Pharyngeal Phase Symptoms Laryngeal Penetration Severity of Vallecular Residue None - 0% No Residue Severity of Pyriform Sinus Residue None - 0% No Residue 8 Point Laryngeal Penetration-Aspiration Material Enters the Airway, Scale Remains Above Vocal Folds, is Ejected Cervical/Esophageal Symptoms None Thin Uncontrolled 1 Method of Presentation Cup Oral Preparatory Symptoms None Oral Phase Symptoms None Pharyngeal Phase Symptoms Within Functional Limits, Laryngeal Penetration Severity of Vallecular Re
== END 2020-06-28 07:59 | disposition home or self-care (01) ==
PROVIDERS: PCP Family Medicine; Visit Provider Nurse Practitioner Family
DX: R13.10 Dysphagia, unspecified (principal)
CPT/HCPCS: 92611

== ENCOUNTER → 2020-08-18 02:18 | Outpatient (CLI) | payer MEDICARE, SELFPAY ==
[2020-08-19 14:53] LABS: SARS-CoV-2 RNA PCR Negative
== END ==
PROVIDERS: PCP Family Medicine; Visit Provider Internal Medicine Gastroenterology
DX: Z01.812 Encounter for preprocedural laboratory examination (principal); Z20.822 Contact with and (suspected) exposure to COVID-19
CPT/HCPCS: C9803; U0003; U0005

== ENCOUNTER 2020-08-22 00:54 | Day surgery (SDC) | payer MEDICARE, SELFPAY ==
[2020-08-17 13:59] VITALS: BMI 38.5
[2020-08-22 06:25] VITALS: BP 156/97; PULSE 67; RESP 16; TEMP 36.4; O2SAT 99; BMI 42.8
[2020-08-22] MEDS: LACTATED RINGERS 1,000 ML 150 ML IV CONT (06:29)
--- NOTE | 2020-08-22 06:56 | WPDANESEPPF ---
Anes - Initial Pre Proc Eval Procedure: Operation Date: 08/22/20 07:30 Proposed Procedures p Esophagogastroduodenoscopy - Everardo Mello MD Date/Time: 08/22/20 06:56 Surgeon: Everardo Mello MD Pre Op Diagnosis: dysphagia Patient Data Age: 59 Gender: M Height: 1.88 m Weight: 151.5 kg Last Vital Signs Temp 36.4 C 08/22/20 06:25 Pulse 67 08/22/20 06:25 Resp 16 08/22/20 06:25 BP 156/97 H 08/22/20 06:25 Pulse Ox 99 08/22/20 06:25 Allergies Allergy/AdvReac Type Severity Reaction Status Date / Time Penicillins Allergy Unknown Anaphylaxis Verified 08/22/20 06:21 cefuroxime AdvReac GI Problems Verified 08/22/20 06:21 hydrocodone AdvReac makes me Verified 08/22/20 06:21 mean Home Medications Medication Instructions Recorded Confirmed Type albuterol sulfate 90 mcg/actuation 1 puff INHALATION Q4H PRN 04/20/19 08/22/20 History aerosol inhaler clonidine HCl 0.1 mg tablet 0.1 mg PO DAILY 04/20/19 08/22/20 History hydralazine 100 mg tablet 100 mg PO BID 04/20/19 08/22/20 History ibuprofen 600 mg tablet 600 mg PO BID 04/20/19 08/22/20 History lisinopril 40 mg tablet 40 mg PO DAILY 04/20/19 08/22/20 History nitroglycerin 0.4 mg sublingual 0.4 mg SUBLINGUAL Q5M PRN 04/20/19 08/22/20 History tablet omeprazole 20 mg capsule,delayed 40 mg PO DAILY 04/20/19 08/22/20 History release quetiapine 25 mg tablet 25 mg PO BID 04/20/19 08/22/20 History tamsulosin 0.4 mg capsule 0.4 mg PO DAILY 04/20/19 08/22/20 History trazodone 100 mg tablet 100 mg PO HS 04/20/19 08/22/20 History venlafaxine 225 mg tablet,extended 225 mg PO DAILY 04/20/19 08/22/20 History release 24 hr montelukast 10 mg tablet 10 mg PO DAILY 30 Days #30 tablet 10/21/19 08/22/20 Rx labetalol 100 mg PO Q12H 02/01/20 08/22/20 History rivaroxaban [Xarelto] 20 mg PO DAILY 02/01/20 08/22/20 History saw-vit E-sod [id number] 1 tablet PO DAILY 02/01/20 08/22/20 History [Prostate Health] budesonide-formoterol HFA 160 2 puff INHALATION Q12H 90 Days 05/02/20 08/22/20 Rx mcg-4.5 mcg/actuation aerosol #30.6 g inhaler omega-3 fatty acids 1,000 mg 1,000 mg PO BID 05/02/20 08/22/20 History capsule oxycodone-acetaminophen 10 mg-325 1 tablet PO Q6H PRN #50 tablet 08/20/20 08/22/20 Rx mg tablet Patient hx anesthesia problems: none Family hx anesthesia problems: none PMFSH Past Medical History Medical History (Updated 08/21/20 @ 12:53 by Yoan Cazares DO) Anxiety BPH (benign prostatic hyperplasia) Chronic, continuous use of opioids COPD (chronic obstructive pulmonary disease) Depression DVT (deep venous thrombosis) right leg 2015 Dyslipidemia GERD (gastroesophageal reflux disease) Hypertension NELLY (obstructive sleep apnea) PAF (paroxysmal atrial fibrillation) Retention of urine Social History Social History Smoking packs per day: 1 Smoking cigarettes per day: 20.0 Years smoked: 40 Smoking pack-years: 40.00 Smoking status: Current every day smoker Tobacco type: cigarettes Substance use: current Substance use type: marijuana Last use: 08/10/2020 Living arrangements: alone Spiritual care concerns: No Anes - Eval Final PreProcedure Day of Procedure 08/22/20 06:56 Patient weight: morbidly obese Heart: regular rate and rhythm Lungs: clear to auscultation and normal air movement Airway: Mallampati scale class III Neurological: alert and oriented Last oral intake: >/= 8 hours ASA classification: III Emergent: no Anesthetic plan: proceed Anesthesia type and monitoring: general GIVS and standard monitoring Informed Consent: The patient's anesthetic plan and its attendant risks and benefits were discussed with the patient/family/POA. Questions were solicited and answers provided to the satisfaction of the patient/family/POA.
--- NOTE | 2020-08-22 07:29 | PM.HPGS ---
History of Present Illness History of Present Illness Consent: Risks, benefits, and alternatives have been discussed and questions answered. Patient agrees to proceed with procedure. Chief complaint: dysphagia Narrative: Joe Quintana is a 59 year old male with non-cardiac chest pain and dysphagia on ppi bid, also using nsaid's and narcotics because neuropathy. Review of Systems Constitutional: Constitutional: Denies headache(s) and Denies weakness Eyes: Eyes: Denies blurry vision ENT: Reports Normal hearing present, Denies headache(s) and Denies neck pain Cardiovascular: Cardiovascular: Denies chest pain and Denies dyspnea Respiratory: Respiratory: Denies dyspnea Gastrointestinal: Gastrointestinal: Reports no additional gastrointestinal complaints Genitourinary: Genitourinary: Denies dysuria Musculoskeletal: Musculoskeletal: Denies neck pain Integumentary/Breasts: Skin/Breast: Denies dry skin Neurologic: Reports Normal hearing present, Denies headache(s) and Denies weakness Psychiatric: Psychiatric: Denies anxiety Endocrine: Endocrine: Denies change in body appearance Hematologic/Lymphatic: Hematologic/Lymphatic: Denies easy bleeding Allergic/Immunologic: Allergic/Immunologic: Denies urticaria [facility] Past Medical History Medical History (Updated 08/22/20 @ 07:30 by Everardo Mello MD) Anxiety BPH (benign prostatic hyperplasia) Chronic, continuous use of opioids COPD (chronic obstructive pulmonary disease) Depression DVT (deep venous thrombosis) right leg 2016 Dyslipidemia Dyspepsia Dysphagia GERD (gastroesophageal reflux disease) Hypertension NSAID long-term use NELLY (obstructive sleep apnea) PAF (paroxysmal atrial fibrillation) Retention of urine Social History Social History Smoking packs per day: 1 Smoking cigarettes per day: 20.0 Years smoked: 40 Smoking pack-years: 40.00 Smoking status: Current every day smoker Tobacco type: cigarettes Substance use: current Substance use type: marijuana Last use: 08/10/2020 Living arrangements: alone Spiritual care concerns: No Meds Home Medications and Allergies Home Medications Medication Instructions Recorded Confirmed Type albuterol sulfate 90 mcg/actuation 1 puff INHALATION Q4H PRN 04/20/19 08/22/20 History aerosol inhaler clonidine HCl 0.1 mg tablet 0.1 mg PO DAILY 04/20/19 08/22/20 History hydralazine 100 mg tablet 100 mg PO BID 04/20/19 08/22/20 History ibuprofen 600 mg tablet 600 mg PO BID 04/20/19 08/22/20 History lisinopril 40 mg tablet 40 mg PO DAILY 04/20/19 08/22/20 History nitroglycerin 0.4 mg sublingual 0.4 mg SUBLINGUAL Q5M PRN 04/20/19 08/22/20 History tablet omeprazole 20 mg capsule,delayed 40 mg PO DAILY 04/20/19 08/22/20 History release quetiapine 25 mg tablet 25 mg PO BID 04/20/19 08/22/20 History tamsulosin 0.4 mg capsule 0.4 mg PO DAILY 04/20/19 08/22/20 History trazodone 100 mg tablet 100 mg PO HS 04/20/19 08/22/20 History venlafaxine 225 mg tablet,extended 225 mg PO DAILY 04/20/19 08/22/20 History release 24 hr montelukast 10 mg tablet 10 mg PO DAILY 30 Days #30 tablet 10/21/19 08/22/20 Rx labetalol 100 mg PO Q12H 02/01/20 08/22/20 History rivaroxaban [Xarelto] 20 mg PO DAILY 02/01/20 08/22/20 History saw-vit E-sod [id number]-uxm-[id number]-pyg 1 tablet PO DAILY 02/01/20 08/22/20 History [Prostate Health] budesonide-formoterol HFA 160 2 puff INHALATION Q12H 90 Days 05/02/20 08/22/20 Rx mcg-4.5 mcg/actuation aerosol #30.6 g inhaler omega-3 fatty acids 1,000 mg 1,000 mg PO BID 05/02/20 08/22/20 History capsule oxycodone-acetaminophen 10 mg-325 1 tablet PO Q6H PRN #50 tablet 08/20/20 08/22/20 Rx mg tablet Allergies Allergy/AdvReac Type Severity Reaction Status Date / Time Penicillins Allergy Unknown Anaphylaxis Verified 08/22/20 06:21 cefuroxime AdvReac GI Problems Verified 08/22/20 06:21 hydrocodone AdvReac ma
[2020-08-22 07:46] VITALS: BP 167/88; PULSE 67; RESP 17; O2SAT 95
[2020-08-22 07:56] VITALS: BP 162/85; PULSE 67; RESP 17; O2SAT 96
[2020-08-22 08:06] VITALS: BP 151/101; PULSE 70; RESP 18; O2SAT 96
== END 2020-08-22 08:22 | disposition home or self-care (01) ==
PROVIDERS: PCP Family Medicine; Visit Provider Internal Medicine Gastroenterology
PROC: 0DJ08ZZ Inspection of Upper Intestinal Tract, Via Natural or Artificial Opening Endoscopic (ICD-10-PCS; CPT 43235; principal; 2020-08-22 07:30)
DX: K29.50 Unspecified chronic gastritis without bleeding (principal); K21.00 Gastro-esophageal reflux disease with esophagitis, without bleeding; R13.10 Dysphagia, unspecified; I10 Essential (primary) hypertension; J44.9 Chronic obstructive pulmonary disease, unspecified; G47.33 Obstructive sleep apnea (adult) (pediatric); F41.8 Other specified anxiety disorders; E78.5 Hyperlipidemia, unspecified; I48.0 Paroxysmal atrial fibrillation; Z86.718 Personal history of other venous thrombosis and embolism; Z79.891 Long term (current) use of opiate analgesic; Z79.1 Long term (current) use of non-steroidal anti-inflammatories (NSAID); F17.210 Nicotine dependence, cigarettes, uncomplicated; F12.90 Cannabis use, unspecified, uncomplicated; Z79.51 Long term (current) use of inhaled steroids; Z79.01 Long term (current) use of anticoagulants
CPT/HCPCS: 43239; 88305; C9803; J2001; J2704; J7120; U0003; U0005

== ENCOUNTER 2020-10-01 10:36 | Observation (INO) | payer MEDICARE, SELFPAY ==
[2020-10-01] VITALS (11 sets, daily range): BP systolic 118–178; BP diastolic 70–98; PULSE 65–89; RESP 18–20; TEMP 36.4–36.6; O2SAT 95–100; BMI 40.4
--- NOTE | ~2020-10-01 | MR_ITS ---
EXAMINATION: MR lumbar spine wo/w con DATE: 10/02/2020 15:23 INDICATION: Left leg pain. TECHNIQUE: Magnetic resonance imaging (MRI) of the lumbar spine was performed without and with 20 mL MultiHance intravenous contrast. Sequences included sagittal T2-weighted FSE, sagittal T2-weighted FS FSE, and sagittal and axial T1-weighted FSE. Postcontrast sequences included axial T2-weighted FSE a nd axial and sagittal T1-weighted FS FSE. COMPARISON: Lumbar spine MRI 02/25/2017 FINDINGS: There is motion artifact, which severely decreases sensitivity. Bone alignment is normal. V ertebral body heights are normal. There is mildly decreased disc height at L4-L5. There is severe fac et joint osteoarthritis in the lower lumbar spine. There is no moderate or severe central canal steno sis in the lumbar spine. The neural foramina are not well evaluated. The conus medullaris is at T12-L 1. IMPRESSION: 1. Moderate lumbar spondylosis. Motion artifact severely decreases sensitivity. Reviewed, dictated and finalized at location A.
--- NOTE | ~2020-10-01 | MR_ITS ---
EXAMINATION: MR brain/brain stem wo/w con DATE: 10/02/2020 15:23 INDICATION: Confusion. TECHNIQUE: Magnetic resonance imaging (MRI) of the brain and brainstem was performed without and with 20 mL MultiHance intravenous contrast. Sequences included sagittal and axial T1-weighted FSE, axial diffusion-weighted FS EPI, axial T2*-weighted GRE, axial T2-weighted FLAIR Propeller, and axial T2-we ighted Propeller. Postcontrast sequences included axial and coronal T1-weighted FSE. Apparent diffusi on coefficient (ADC) maps were created. COMPARISON: Head CT 10/01/2020 FINDINGS: Motion artifact is noted, which decreases sensitivity. There are scattered areas of nonspec ific increased T2-weighted signal intensity in the cerebral white matter and cj. There is no intrac ranial hemorrhage, acute infarction, or abnormal intracranial mass lesion. The ventricles are normal in size. The orbits are normal. There is mild mucosal thickening in the paranasal sinuses. There is a small right mastoid effusion. IMPRESSION: 1. Mild nonspecific cerebral white matter disease and pontine disease, which likely represents chroni c small vessel ischemic disease. Reviewed, dictated and finalized at location A. IMPRESSION: 1. Mild nonspecific cerebral white matter disease and pontine disease, which sonia shen represents chronic small vessel ischemic disease.
--- NOTE | ~2020-10-01 | XR_ITS ---
EXAMINATION: XR chest 2V 10/01/2020 11:22 INDICATION: Left sided chest numbness PROCEDURE: AP and lateral views of the chest COMPARISON: 11/06/2017 FINDINGS: The lungs are clear. The cardiomediastinal silhouette is mildly enlarged. There are no ple ural effusions. There is no pneumothorax suspected. IMPRESSION: 1: NO ACUTE CARDIOPULMONARY DISEASE. Reviewed, dictated and finalized at location B.
--- NOTE | ~2020-10-01 | CT_ITS ---
EXAMINATION: CTA BRAIN/CAROTID DATE: 10/01/2020 13:40 INDICATION: Left sided weakness TECHNIQUE: Computed tomographic angiography (CTA) of the head and neck was performed with 100 mL Omni paque-350 intravenous contrast. Multiplanar reconstructions and maximum intensity projection 3D-recon structions of the carotid arteries and of the intracranial arteries were created by the technologist on a separate workstation. Precontrast CT of the head was also obtained. Automated exposure control and iterative reconstruction technique were employed.The dose-length product was 1943.67 mGy-cm. COMPARISON: None. FINDINGS: Carotid arteries: There is 0% stenosis of the right carotid bulb relative to normal distal artery lumen diameter (NASCE T criteria). There is 0% stenosis of the left carotid bulb relative to normal distal artery lumen michael meter. The left vertebral artery appears to arise independently from the aortic arch which is a hoang l anatomic variant. Mild atelectasis at the apices of lungs resulting from expiratory phase of imagin g. Soft tissues of the neck and the visualized superior mediastinum are unremarkable. Mild to moderat e cervical spondylosis. Head: No acute intracranial hemorrhage, acute infarction or abnormal extra axial fluid collection. There is mild scattered white matter hypoattenuation consistent with chronic small vessel ischemic disease. Ventricles are normal and symmetric. No mass/mass effect. No abnormally enhancing brain lesions ident ified. Mild mucosal thickening the bilateral ethmoid sinuses with opacification of the right frontoet hmoidal recess. Small left mastoid effusion. The orbits are normal. Intracranial arteries There is no hemodynamically significant stenosis in the vertebral, basilar and internal carotid arter ies. Vertebral arteries are codominant. There are no aneurysms identified. Both A1 and P1 segments a re patent. Cerebral arterial arborization appears symmetric. IMPRESSION: 1. 0% stenosis of the right carotid bulb relative to normal distal artery lumen diameter (NASCET crit eria). 2. 0% stenosis of the left carotid bulb relative to normal distal artery lumen diameter. 3. Normal cerebral angiogram. No aneurysms or hemodynamically significant stenosis of the intracrania l arteries. 4. Mild scattered white matter hypoattenuation consistent with chronic small vessel ischemic disease. No acute intracranial process or abnormally enhancing brain lesions. Reviewed, dictated and finalized at location A. IMPRESSION: 1. 0% stenosis of the right carotid bulb relative to normal distal artery lumen diameter (NASCET criteria). 2. 0% stenosis of the left carotid bulb relative to normal distal artery lumen diameter. 3. Normal cerebral angiogram. No aneurysms or hemodynamically significant steno sis of the intracranial arteries. 4. Mild scattered white matter hypoattenuation consistent with chronic small ve ssel ischemic disease. No acute intracranial process or abnormally enhancing br ain lesions.
--- NOTE | ~2020-10-01 | US_ITS ---
EXAMINATION:US venous doppler LE BI INDICATION:History of DVT with leg pain TECHNIQUE: Multiple grayscale, color flow and Doppler images of the right and left lower extremity de ep venous systems were obtained and reviewed. COMPARISON:No prior studies for comparison. FINDINGS: The common femoral, superficial femoral and popliteal veins demonstrate normal respiratory variation, augmentation and compressibility. Color flow is also seen within the posterior tibial, pe roneal, greater saphenous and profunda veins. IMPRESSION: 1: No lower extremity deep venous thrombosis. Reviewed, dictated and finalized at location B.
--- NOTE | 2020-10-01 11:09 | ECG_ITS ---
Measurements Intervals [place] Rate: 63 P: 7 CT: 175 QRS: 13 QRSD: 178 T: -1 QT: 425 QTc: 436 Interpretive Statements SINUS RHYTHM RIGHT BUNDLE BRANCH BLOCK ABNORMAL ECG Electronically Signed On 10-01-2020 12:27:14 CDT by Taras Yeung D.O.
[2020-10-01 11:21] LABS: Basophils Absolute Auto 0.1 K/mm3 (0.0-0.1); Basophils Percent Auto 1.3 % (0.2-1.2); Eosinophils Absolute Auto 0.4 K/mm3 (0-0.3); Eosinophils Percent Auto 5.1 % (0-4.4); Hematocrit 33.6 % (42.0-52.0); Immature Granulocyte Absolute 0.03 K/mm3 (0.00-0.031); Immature Granulocyte Percent A 0.4 % (0-0.5); Lymphocytes Absolute Auto 1.77 K/mm3 (0.9-3.2); Lymphocytes Percent Auto 25.3 % (18.3-44.2); Mean Corpuscular HGB Conc 29.8 g/dl (32-36); Mean Corpuscular Hemoglobin 22.7 pg (26-34); Mean Corpuscular Volume 76.2 fl (80-100); Mean Platelet Volume 10.9 fl (7.4-10.4); Monocytes Absolute Auto 0.6 K/mm3 (0.1-0.6); Monocytes Percent Auto 7.9 % (2.6-8.5); Neutrophils Absolute Auto 4.2 K/mm3 (1.3-6.7); Platelet Count Result 191 k/mm3 (150-375); Red Blood Count 4.41 M/mm3 (4.6-6.20); Red Cell Distribution Width 15.8 % (11.5-14.5)
[2020-10-01 11:30] LABS: Hypochromasia 1+ (NORMAL); Platelet Estimate Adequate (Adequate)
[2020-10-01 11:32] LABS: INR 1.5; Prothrombin Time 19.1 Seconds (11.1-14.7)
[2020-10-01 11:33] LABS: Partial Thromboplastin Time 43.8 SECONDS (22.3-36.8)
[2020-10-01 11:34] LABS: Anion Gap 10 mmol/L (8-16); Blood Urea Nitrogen 13 mg/dL (9-20); Calcium 9.2 mg/dL (8.4-10.2); Carbon Dioxide 26 mmol/L (22-30); Chloride 104 mmol/L (98-107); Estimated CRCL calculation 97 ml/min; Estimated Glomerular Filt Rate > 60; Glucose 134 mg/dL (75-110); Potassium 4.1 mmol/L (3.4-5.0); Sodium 140 mmol/L (137-145)
[2020-10-01 11:46] LABS: Troponin I < 0.012 ng/mL (0.000-0.034)
--- NOTE | 2020-10-01 12:38 | PC.NURSE ---
patient reports pain and numbness to legs. states has a history of neuropathy and the doctors wont do anything for it . patient states neuropathy so bad now he is not able to stand. patient told triage nurse that he had numbness to the left side of face but denies that symptom to this rn
--- NOTE | 2020-10-01 13:52 | ED.GENADULT ---
HPI - General Adult General Chief complaint: Neuro Symptoms/Deficit Stated complaint: left leg pain Time Seen by Provider: 10/01/20 12:43 Source: patient History of Present Illness HPI narrative: Patient is a 60 y/o male complaining of severe left leg weakness for last 3 days. There is no known alleviating or exacerbating factor. He states that he is not able to walk. He has to crawl or hold onto things to get around. He also has left arm weakness and left sided numbness involving left face, left arm and left leg. He also has chronic left leg pain due to neuropathy. Related Data Home Medications Medication Instructions Recorded Confirmed albuterol sulfate 90 mcg/actuation 1 puff INHALATION Q4H PRN 04/20/19 08/22/20 aerosol inhaler clonidine HCl 0.1 mg tablet 0.1 mg PO DAILY 04/20/19 08/22/20 hydralazine 100 mg tablet 100 mg PO BID 04/20/19 08/22/20 ibuprofen 600 mg tablet 600 mg PO BID 04/20/19 08/22/20 lisinopril 40 mg tablet 40 mg PO DAILY 04/20/19 08/22/20 nitroglycerin 0.4 mg sublingual 0.4 mg SUBLINGUAL Q5M PRN 04/20/19 08/22/20 tablet omeprazole 20 mg capsule,delayed 40 mg PO DAILY 04/20/19 08/22/20 release quetiapine 25 mg tablet 25 mg PO BID 04/20/19 08/22/20 tamsulosin 0.4 mg capsule 0.4 mg PO DAILY 04/20/19 08/22/20 trazodone 100 mg tablet 100 mg PO HS 04/20/19 08/22/20 venlafaxine 225 mg tablet,extended 225 mg PO DAILY 04/20/19 08/22/20 release 24 hr labetalol 100 mg PO Q12H 02/01/20 08/22/20 rivaroxaban [Xarelto] 20 mg PO DAILY 02/01/20 08/22/20 saw-vit E-sod [id number]-ghl-asci-pyg 1 tablet PO DAILY 02/01/20 08/22/20 [Prostate Health] omega-3 fatty acids 1,000 mg 1,000 mg PO BID 05/02/20 08/22/20 capsule Allergies Allergy/AdvReac Type Severity Reaction Status Date / Time Penicillins Allergy Unknown Anaphylaxis Verified 08/22/20 06:21 hydrocodone AdvReac makes me Verified 10/01/20 18:01 mean Review of Systems Constitutional: Constitutional: Denies chills, Denies fever(s), Denies headache(s) and Denies weakness Eyes: Eyes: Denies blurry vision ENT: Denies headache(s) and Denies neck pain Cardiovascular: Cardiovascular: Denies chest pain and Denies dyspnea Respiratory: Respiratory: Denies cough and Denies dyspnea Gastrointestinal: Gastrointestinal: Denies abdominal pain, Denies diarrhea, Denies nausea and Denies vomiting Genitourinary: Genitourinary: Denies hematuria and Denies dysuria Musculoskeletal: Musculoskeletal: Denies back pain, Denies neck pain and Reports other (left leg pain) Neurologic: Denies headache(s), Reports paresthesias (left side numbness) and Reports weakness (left side weaknes) [facility] Past Medical History Medical History Anxiety BPH (benign prostatic hyperplasia) Chronic, continuous use of opioids COPD (chronic obstructive pulmonary disease) Depression DVT (deep venous thrombosis) right leg 2016 Dyslipidemia Dyspepsia Dysphagia GERD (gastroesophageal reflux disease) Hypertension NSAID long-term use NELLY (obstructive sleep apnea) PAF (paroxysmal atrial fibrillation) Retention of urine Family History Family History (Updated 10/01/20 @ 18:24 by Sydni De La Rosa RN) Father Alcoholism Mother Alcoholism Social History Social History Smoking packs per day: 1 Smoking cigarettes per day: 20.0 Years smoked: 40 Smoking pack-years: 40.00 Smoking status: Current every day smoker Alcohol intake: former Substance use: current Substance use type: marijuana Other substance usage details: former alcoholism Last use: 09/30/20 Spiritual care concerns: No Exam Const: General: no acute distress and well developed Orientation/consciousness: oriented to person, oriented to place, oriented to time and patient oriented x3 HENMT: Head: normocephalic Ears: external ears normal General nose exam: Normal external nose present Eyes: G
[2020-10-01] MEDS: GABAPENTIN 300 MG CAPSULE PO (15:45)
[2020-10-01] MEDS: CYCLOBENZAPRINE HCL 10 MG TABLET PO (15:45)
--- NOTE | 2020-10-01 18:00 | ADMGEN ---
This patient, Joe Quintana, was admitted to Medical Room 252-01. Patient/family oriented to hospital policies and general routines including ID bracelet, bed and alarms, visiting hours, pain management, procedures, bathroom and other care routines, personal items, smoking policy, room service/diet, and visiting hours. Information on how to activate the Rapid Response Team has been discussed. Patient/Family are encouraged to report perceived risks to care and to ask questions if they do not understand what they are told or what they should do.
--- NOTE | 2020-10-01 23:14 | PM.IMHP ---
H&P: HPI History of Present Illness Date/Time: 10/01/20 23:14 this is a 60-year-old male patient that has a history of degenerative joint disease and history of bulging disc in his cervical spine that is mild. And he has had a history of lower back surgery x2. The patient goes to pain management and takes more pain medication than when he receives. The patient also stated that he had history of having a DVT in his right leg and has not been able to take his Xarelto for last 2 weeks. Now he is having some pain in his left it inner thigh. Head CT 0 stenosis his right and left carotid power. Non STEMI her angiogram mild scattered white matter hypoattenuation consistent with chronic small vessel ischemic disease. No acute intracranial process or anomaly enhancing brain. The patient stated that he had been on gabapentin for his neuropathy at 1 time and on the insurance would not pay for it. Patient was given a Neurontin in the emergency room. He was given a Flexeril as well. The patient is in the bed flaring around and is very uncomfortable. The patient stated that his left arm is weak and that when he tries to pick things up he keeps dropping things. He said both hands he has been dropping things he can hold lawn to them. The left arm is weaker than the right he does not have any facial droop or difficulty swallowing he has no pronator drifting. Patient is being admitted for observation status on the date of service of 10/01/2020 Chief Complaint: Left leg pain Review of Systems Review of Systems: All systems reviewed & are unremarkable except as noted in HPI and below Constitutional: Constitutional: Reports as per HPI and Reports no additional constitutional complaints Eyes: Eyes: Reports as per HPI and Reports no additional eye complaints ENT: Reports system reviewed and no additional complaints, except as documented and Reports Normal hearing present Cardiovascular: Cardiovascular: Reports no additional cardiovascular complaints Respiratory: Respiratory: Reports no additional respiratory complaints and Reports no additional respiratory complaints Gastrointestinal: Gastrointestinal: Reports as per HPI and Reports no additional gastrointestinal complaints Musculoskeletal: Musculoskeletal: Reports no additional musculoskeletal complaints Integumentary/Breasts: Skin/Breast: Reports system reviewed and no additional complaints, except as docu and Reports as per HPI Neurologic: Reports system reviewed and no additional complaints, except as documented, Reports as per HPI and Reports Normal hearing present Psychiatric: Psychiatric: Reports no additional psychiatric complaints and Reports as per HPI Endocrine: Endocrine: Reports no additional endocrine complaints Hematologic/Lymphatic: Hematologic/Lymphatic: Reports no additional hematologic/lymphatic complaints Allergic/Immunologic: Allergic/Immunologic: Reports no additional allergic/immunologic complaints [facility] Past Medical History Medical History (Updated 10/01/20 @ 23:28 by Sera Henley NP) Anxiety BPH (benign prostatic hyperplasia) Chronic, continuous use of opioids COPD (chronic obstructive pulmonary disease) Depression DVT (deep venous thrombosis) right leg 2015 Dyslipidemia Dyspepsia Dysphagia GERD (gastroesophageal reflux disease) Hypertension NSAID long-term use NELLY (obstructive sleep apnea) PAF (paroxysmal atrial fibrillation) Retention of urine Surgical History Surgical History (Updated 10/01/20 @ 23:23 by Sera Henley NP) H/O bilateral inguinal hernia repair History of back surgery X2. L4-L5 Family History Family History Father Alcoholism Mother Alcoholism Social History Social History (Updated 10/01/20 @ 23:24 by Sera Henley NP) Social History: The patient lives with his significant other for the last 2 years. The patient is . Patient is disabled. The patient has
[2020-10-02] VITALS (15 sets, daily range): BP systolic 128–181; BP diastolic 75–98; PULSE 64–76; RESP 18–20; TEMP 35.9–36.7; O2SAT 97–100
[2020-10-02] MEDS: traZODone HCL 50 MG TABLET 100 MG PO ×2 (00:47→20:49)
[2020-10-02] MEDS: FINASTERIDE 5 MG TABLET BY MOUTH ×2 (00:47→20:50)
[2020-10-02] MEDS: QUEtiapine FUMARATE 25 MG TABLET PO ×3 (00:47→20:50)
[2020-10-02] MEDS: VENLAFAXINE HCL XR 75 MG CAP.ER.24H PO ×2 (00:48→20:50)
[2020-10-02] MEDS: LABETALOL HCL 100 MG TABLET PO ×3 (00:48→20:50)
[2020-10-02] MEDS: KETOROLAC 30 MG/ML VIAL (*BKC) IV PUSH (00:49)
[2020-10-02] MEDS: NICOTINE (*PBKC) 21 MG PATCH 1 PATCH TRANSDERM ×2 (00:53→08:04)
[2020-10-02] MEDS: gemfibroziL 600 MG TABLET PO ×2 (05:31→18:12)
[2020-10-02 05:39] LABS: Basophils Absolute Auto 0.1 K/mm3 (0.0-0.1); Basophils Percent Auto 1.2 % (0.2-1.2); Eosinophils Absolute Auto 0.4 K/mm3 (0-0.3); Eosinophils Percent Auto 5.2 % (0-4.4); Hematocrit 33.4 % (42.0-52.0); Immature Granulocyte Absolute 0.04 K/mm3 (0.00-0.031); Immature Granulocyte Percent A 0.5 % (0-0.5); Lymphocytes Absolute Auto 2.23 K/mm3 (0.9-3.2); Lymphocytes Percent Auto 29.8 % (18.3-44.2); Mean Corpuscular HGB Conc 29.9 g/dl (32-36); Mean Corpuscular Hemoglobin 22.4 pg (26-34); Mean Corpuscular Volume 74.7 fl (80-100); Mean Platelet Volume 11.6 fl (7.4-10.4); Monocytes Absolute Auto 0.7 K/mm3 (0.1-0.6); Monocytes Percent Auto 9.2 % (2.6-8.5); Neutrophils Percent Auto 54.1 % (45.5-73.1); Platelet Count Result 208 k/mm3 (150-375); Red Blood Count 4.47 M/mm3 (4.6-6.20); Red Cell Distribution Width 15.8 % (11.5-14.5); White Blood Count 7.5 K/mm3 (4.5-10.0)
[2020-10-02 05:50] LABS: Alanine Aminotransferase 39 U/L (4-50); Albumin Level 4.3 g/dL (3.5-5.1); Alkaline Phosphatase 86 U/L (38-126); Anion Gap 11 mmol/L (8-16); Aspartate Amino Transferase 46 U/L (17-59); Bilirubin,Total 0.4 mg/dL (0.2-1.3); Blood Urea Nitrogen 13 mg/dL (9-20); Calcium 9.3 mg/dL (8.4-10.2); Carbon Dioxide 27 mmol/L (22-30); Chloride 105 mmol/L (98-107); Estimated CRCL calculation 102 ml/min; Estimated Glomerular Filt Rate > 60; Glucose 123 mg/dL (75-110); Hemoglobin A1C 6.3 % (<5.7); Magnesium 2.2 mg/dL (1.6-2.3); Sodium 143 mmol/L (137-145)
[2020-10-02 07:39] LABS: Glucose Point of Care 120 mg/dl (65-105)
[2020-10-02] MEDS: busPIRone HCL 10 MG TABLET BY MOUTH (08:03)
[2020-10-02] MEDS: hydrALAZINE HCL 50 MG TABLET 100 MG PO ×2 (08:06→18:10)
[2020-10-02] MEDS: IBUPROFEN 600 MG TABLET PO (08:06)
[2020-10-02] MEDS: PANTOPRAZOLE 40 MG TABLET PO ×2 (08:06→20:51)
[2020-10-02] MEDS: TAMSULOSIN HCL 0.4 MG CAPSULE PO (08:06)
[2020-10-02] MEDS: MONTELUKAST SODIUM 10 MG TABLET PO (08:07)
[2020-10-02] MEDS: cloNIDine HCL 0.1 MG TABLET PO (08:07)
[2020-10-02] MEDS: VENLAFAXINE HCL XR 75 MG CAP.ER.24H 150 MG PO (08:07)
[2020-10-02 08:35] LABS: Iron 24 ug/dL (49-181)
[2020-10-02 08:47] LABS: Transferrin 378 mg/dL (206-381)
[2020-10-02 08:48] LABS: Percent Iron Saturation 5 % (20-50)
[2020-10-02] MEDS: GABAPENTIN 300 MG CAPSULE PO ×3 (09:32→18:11)
[2020-10-02 09:45] LABS: Folic Acid 5.7 ng/mL (2.76->20)
[2020-10-02 12:02] LABS: Glucose Point of Care 122 mg/dl (65-105)
--- NOTE | 2020-10-02 12:48 | PM.IMPN ---
Progress Note: A&P Assessment and Plan (1) Weakness of left side of body: Code(s): R53.1 - Weakness Status: Acute Assessment and Plan: Patient is being admitted to rule out stroke causing weakness verses radiculopathy from chronic lumbar spine issues versus neuropathy from missing his gabapentin MRI pending of his brain Also getting MRI of his lumbar spine which is pending Continue PT/OT Continue gabapentin Neurology is consulted and their input is greatly appreciated Continue monitoring. (2) Iron deficiency anemia: Code(s): D50.9 - Iron deficiency anemia, unspecified Status: Acute Assessment and Plan: Patient was found to have microcytic anemia so I do iron labs which showed iron deficiency anemia with % sat to 5%. I have ordered IV Venofer 300 mg for 3 days. Normal vitamin B12 and folic acid levels. Ordered hemoccult stool which is pending Continue monitoring H&H. No signs of acute GI bleeding at this time. Monitor H&H. (3) Chronic back pain: Code(s): M54.9 - Dorsalgia, unspecified; G89.29 - Other chronic pain Status: Acute Assessment and Plan: Patient has a long history of chronic back issues. He said to surgeries on his lumbar spine L4 -L5, with the most recent one completed at [facility] about 5 years ago. 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 Santillan Neurology who had been prescribing his narcotic pain medications for pain control. He has chronic peripheral neuropathy and has been on gabapentin for a long time, but states recently his insurance will not cover his gabapentin so he cannot take it anymore. (4) Cervicalgia: Code(s): M54.2 - Cervicalgia Status: Acute Assessment and Plan: He has chronic neck pain with radiation into his left shoulder. He has chronic issues to his bilateral hands with dropping objects. He has had multiple MRIs of his cervical spine last image April 19, 2020 showing scattered arthropathy with significant neural foraminal stenosis at some levels. He has not followed up with a neurosurgeon for further evaluation. Continue monitoring. (5) COPD (chronic obstructive pulmonary disease): Code(s): J44.9 - Chronic obstructive pulmonary disease, unspecified Status: Chronic Assessment and Plan: Continue with his home inhalers. Lungs are clear at this time. (6) NELLY (obstructive sleep apnea): Code(s): G47.33 - Obstructive sleep apnea (adult) (pediatric) Status: Acute Assessment and Plan: The patient stated he is intolerant of a CPAP machine due to claustrophobia. He did have a mouth guard which seemed to help, but he lost. (7) Dyslipidemia: Code(s): E78.5 - Hyperlipidemia, unspecified Status: Acute Assessment and Plan: Continue with home medication gemfibrozil. (8) PAF (paroxysmal atrial fibrillation): Code(s): I48.0 - Paroxysmal atrial fibrillation Status: Acute Assessment and Plan: The patient appears to be in sinus rhythm at this time continue with labetalol and his Xarelto. (9) Tobacco abuse: Code(s): Z72.0 - Tobacco use Status: Acute Assessment and Plan: I did offer the patient a nicotine patch. I have spoke with the patient about smoking cessation for approximately 5 minutes. (10) Hypertension: Code(s): I10 - Essential (primary) hypertension Status: Acute Assessment and Plan: Blood pressure this mo
--- NOTE | 2020-10-02 13:25 | PCNSR ---
On 10/02/20, the student,Lynette Srinivasan, provided care and completed [facility] documentation on this patient. I have reviewed the student's documentation and agree with the findings.
--- NOTE | 2020-10-02 14:07 | PC.NURSE ---
To MRI via wheelchair.
--- NOTE | 2020-10-02 16:05 | PC.NURSE ---
Returned from MRI via wheelchair.
[2020-10-02 16:26] LABS: IFOB Positive Control Positive; Immunochemical Fecal Occult Bl Positive (N)
--- NOTE | 2020-10-02 16:31 | WPDNEUROPN ---
Progress Note: A&P Additional Plan chronic pain syndrome with all the other underlying medical problems the investigations have been unrewarding at this stage for further intervention treatment will be continued as such symptomatic Cedeño with a follow-up in the office as an outpatient Review of Systems Review of Systems: All systems reviewed & are unremarkable except as noted in HPI and below Exam Narrative: Exam Narrative: examination revealed him to be awake alert cooperative in no obvious acute distress head normocephalic with no cranial bruit and ear nose throat examination normal neck supple with no cervical bruit no thyromegaly no limb adenopathy heart regular with no murmur lungs clear to auscultation with no crepitations or rhonchi abdomen is soft with no organomegaly neurological is awake alert oriented x3 speech nor dysphasic no dysarthric not dysphonic the cranial examination is normal motor examination revealed him to have normal symmetrical strength in upper and lower extremities bilaterally symmetrical deep tendon reflexes and plantars downgoing with no evidence of sensory deficit Objective Data Vital Signs Vital Signs: Vital Signs - 24 hr 10/01/20 18:05 10/01/20 20:00 10/02/20 00:00 Temperature 36.4 C L 36.6 C 36.4 C Pulse Rate 74 77 74 Respiratory Rate 18 18 18 Blood Pressure 134/70 178/83 H 161/79 H Pulse Oximetry 100 97 98 10/02/20 00:48 10/02/20 04:00 10/02/20 08:00 Temperature 36.4 C L Pulse Rate 69 64 65 Respiratory Rate 18 Blood Pressure 159/75 H Pulse Oximetry 100 10/02/20 08:03 10/02/20 08:07 10/02/20 08:55 Temperature Pulse Rate 65 Respiratory Rate 18 Blood Pressure Pulse Oximetry 99 99 10/02/20 10:00 10/02/20 12:00 10/02/20 14:00 Temperature 36.3 C L 35.9 C L Pulse Rate 66 70 76 Respiratory Rate 20 18 Blood Pressure 137/76 128/98 H Pulse Oximetry 97 100 Intake/Output Intake/Output: Intake & Output 09/29/20 09/30/20 10/01/20 10/02/20 23:59 23:59 23:59 23:59 Intake Total 845 Output Total 900 Balance -55 Meds/Results Medications: Active Medications Generic Name Dose Route Start Last Admin Trade Name Freq PRN Reason Stop Dose Admin Acetaminophen 650 mg 10/02/20 08:22 Acetaminophen 325 Mg Tablet PO Q4H PRN Mild Pain (1-3) or Fever Albuterol 1 puff 10/01/20 23:09 Albuterol Sulfate (*Sp) Aerosol 1 Puff INHALATION Q4H PRN Wheezing Budesonide/Formoterol Fumarate 2 puff 10/01/20 23:40 10/02/20 08:01 Budesonide/Form 160-4.5 Mcg (*Sp) INHALATION 2 puff Q12HRT EMMANUELLE Administration Buspirone HCl 10 mg 10/02/20 09:00 10/02/20 08:03 Buspirone Hcl 10 Mg Tablet BY MOUTH 11/01/20 09:01 10 mg DAILY EMMANUELLE Administration Clonidine HCl 0.1 mg 10/02/20 09:00 10/02/20 08:07 Clonidine Hcl 0.1 Mg Tablet PO 0.1 mg DAILY EMMANUELLE Administration Cyclobenzaprine HCl 10 mg 10/01/20 23:09 Cyclobenzaprine Hcl 10 Mg Tablet PO Q8H PRN Muscle Spasm Dextrose 12.5 gm 10/01/20 23:13 Dextrose 50% 25 Gm/50 Ml Syringe IV PUSH PRN PRN Hypoglycemia Protocol Docusate Sodium 100 mg 10/02/20 21:00 Docusate Sodium 100 Mg Capsule PO Q12HR EMMANUELLE Finasteride 5 mg 10/01/20 23:40 10/02/20 00:47 Finasteride 5 Mg Tablet BY MOUTH 11/01/20 23:41 5 mg HS EMMANUELLE Administration Fluticasone Propionate 1 spray 10/02/20 21:00 Fluticasone Propionate 0.05% Na Spr 16 Gm Btl (*Bkc) NASAL Q12HR EMMANUELLE Gabapentin 300 mg 10/02/20 09:00 10/02/20 13:12 Gabapentin 300 Mg Capsule PO 300 mg TID EMMANUELLE Administration Gemfibrozil 600 mg 10/02/20 06:30 10/02/20 05:31 Gemfibrozil 600 Mg Tablet PO 600 mg BIDAC EMMANUELLE Administration Glucagon 1 mg 10/01/20 23:13 Glucagon For Inj 1 Mg Vial IM PRN PRN Hypoglycemia Protocol Glucose 15 gm 10/01/20 23:13 Glucose Oral Gel 15 Gm Of Glucse In 37.5 Gm Tube PO PRN PRN Hypoglycemia
[2020-10-02 17:49] LABS: Glucose Point of Care 108 mg/dl (65-105)
[2020-10-02] MEDS: RIVAROXABAN 20 MG TABLET PO (18:12)
[2020-10-02] MEDS: FLUTICASONE PROPIONATE 0.05% NA SPR 16 GM BTL (*BKC) 1 SPRAY NASAL (20:48)
[2020-10-02] MEDS: DOCUSATE SODIUM 100 MG CAPSULE PO (20:50)
[2020-10-02 21:08] LABS: Glucose Point of Care 103 mg/dl (65-105)
[2020-10-03] VITALS (10 sets, daily range): BP systolic 127–189; BP diastolic 69–88; PULSE 62–80; RESP 16–18; TEMP 36.2–36.6; O2SAT 95–99
[2020-10-03 05:38] LABS: Hemoglobin 9.6 g/dL (14.0-18.0); Mean Corpuscular Hemoglobin 22.1 pg (26-34); Mean Corpuscular Volume 73.6 fl (80-100); Mean Platelet Volume 10.9 fl (7.4-10.4); Platelet Count Result 195 k/mm3 (150-375); Red Blood Count 4.35 M/mm3 (4.6-6.20); Red Cell Distribution Width 15.6 % (11.5-14.5); White Blood Count 7.2 K/mm3 (4.5-10.0)
[2020-10-03] MEDS: gemfibroziL 600 MG TABLET PO ×2 (05:51→16:41)
[2020-10-03] MEDS: oxyCODONE/ACETAMINOPHEN (*CRX) 5-325 MG TABLET 1 TABLET PO ×3 (05:51→20:00)
[2020-10-03 05:52] LABS: Anion Gap 8 mmol/L (8-16); Blood Urea Nitrogen 12 mg/dL (9-20); Calcium 9.2 mg/dL (8.4-10.2); Carbon Dioxide 28 mmol/L (22-30); Chloride 106 mmol/L (98-107); Estimated CRCL calculation 102 ml/min; Estimated Glomerular Filt Rate > 60; Glucose 101 mg/dL (75-110); Potassium 4.1 mmol/L (3.4-5.0); Sodium 142 mmol/L (137-145)
[2020-10-03] MEDS: oxyCODONE HCL (*CRX) 5 MG TAB IR PO ×3 (05:52→20:01)
[2020-10-03 08:16] LABS: Glucose Point of Care 124 mg/dl (65-105)
[2020-10-03] MEDS: NICOTINE (*PBKC) 21 MG PATCH 1 PATCH TRANSDERM (08:17)
[2020-10-03] MEDS: TAMSULOSIN HCL 0.4 MG CAPSULE PO (08:17)
[2020-10-03] MEDS: FLUTICASONE PROPIONATE 0.05% NA SPR 16 GM BTL (*BKC) 1 SPRAY NASAL ×2 (08:17→20:37)
[2020-10-03] MEDS: MONTELUKAST SODIUM 10 MG TABLET PO (08:17)
[2020-10-03] MEDS: hydrALAZINE HCL 50 MG TABLET 100 MG PO ×2 (08:18→16:40)
[2020-10-03] MEDS: busPIRone HCL 10 MG TABLET BY MOUTH (08:18)
[2020-10-03] MEDS: VENLAFAXINE HCL XR 75 MG CAP.ER.24H 150 MG PO (08:19)
[2020-10-03] MEDS: GABAPENTIN 300 MG CAPSULE PO ×3 (08:19→16:40)
[2020-10-03] MEDS: DOCUSATE SODIUM 100 MG CAPSULE PO ×2 (08:19→20:36)
[2020-10-03] MEDS: LABETALOL HCL 100 MG TABLET PO ×2 (08:20→20:36)
[2020-10-03] MEDS: QUEtiapine FUMARATE 25 MG TABLET PO ×2 (08:20→20:39)
[2020-10-03] MEDS: PANTOPRAZOLE 40 MG TABLET PO ×2 (08:20→20:37)
[2020-10-03] MEDS: cloNIDine HCL 0.1 MG TABLET PO (08:21)
--- NOTE | 2020-10-03 10:10 | PM.IMPN ---
Progress Note: A&P Assessment and Plan (1) Iron deficiency anemia: Code(s): D50.9 - Iron deficiency anemia, unspecified Status: Acute Assessment and Plan: Patient was found to have microcytic anemia, iron labs which showed iron deficiency anemia with % sat to 5%. I have ordered IV Venofer 300 mg for 3 days. Normal vitamin B12 and folic acid levels. Positive hemoccult stool Xarelto is on Hold. Patient has PPI GI Consulted for further evaluation and recommendations. H&H Stable at this time , 9.6/32% Continue monitoring H&H. Monitor H&H. (2) Weakness of left side of body: Code(s): R53.1 - Weakness Status: Acute Assessment and Plan: Patient is being admitted to rule out stroke causing weakness verses radiculopathy from chronic lumbar spine issues versus neuropathy from missing his gabapentin MRI of his brain showed Mild nonspecific cerebral white matter disease and pontine disease, which likely represents chronic small vessel ischemic disease. MRI of his lumbar spine showing moderate lumbar spondylosis. There is mildly decreased disc height at L4-L5. There is severe facet joint osteoarthritis in the lower lumbar spine. There is no moderate or severe central canal stenosis in the lumbar spine. Motion artifact severely decreases sensitivity. Today with PT the patient walked 125 feet with a walker standby assist, he also completed 3 steps since he has stairs going into his house. He is independent for transfers. The patient was limited secondary to pain. Continue gabapentin Neurology was consulted and does not recommend anything more at this time. He will need to follow up with Neurosurgeon and pain management. Continue monitoring. (3) Chronic back pain: Code(s): M54.9 - Dorsalgia, unspecified; G89.29 - Other chronic pain Status: Acute Assessment and Plan: Patient has a long history of chronic back issues. He said to surgeries on his lumbar spine L4 -L5, with the most recent one completed at [place] about 5 years ago. 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 Santillan Neurology who had been prescribing his narcotic pain medications for pain control. He has chronic peripheral neuropathy and has been on gabapentin for a long time, but states recently his insurance will not cover his gabapentin so he cannot take it anymore. Chronic pain today. Did better with therapy. 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 (4) Cervicalgia: Code(s): M54.2 - Cervicalgia Status: Acute Assessment and Plan: He has chronic neck pain with radiation into his left shoulder. He has chronic issues to his bilateral hands with dropping objects. He has had multiple MRIs of his cervical spine last image April 19, 2020 showing scattered arthropathy with significant neural foraminal stenosis at some levels. He has not followed up with a neurosurgeon for further evaluation. (5) COPD (chronic obstructive pulmonary disease): Code(s): J44.9 - Chronic obstructive pulmonary disease, unspecified Status: Chronic Assessment and Plan: Continue with his home inhalers. Lungs are clear at this time. (6) NELLY (obstructive sleep apnea): Code(s): G47.33 - Obstructive sleep apnea (adult) (pediatric) Status: Acute Assessment and Plan: The patient stated he is intolerant of a CPAP machine due to claustrophobia. He did have a mouth guard which seemed to help, but he lost.Will need to follow up outpatient for another mouth guard. (7) Dyslipidemia:
[2020-10-03 11:54] LABS: Glucose Point of Care 94 mg/dl (65-105)
--- NOTE | 2020-10-03 13:59 | WPDGICN ---
Assessment and Plan Assessment and plan (1) Iron deficiency anemia: Code(s): D50.9 - Iron deficiency anemia, unspecified Status: Acute Assessment and Plan: with heme-positive stool, GI source is likely. He is on Xarelto, thus he would need to be held for 2 days before we could perform colonoscopy. After I spoke to him and examine him, I do not know if it would be feasible at this time for him to take the prep for colonoscopy. He in fact is certain that he cannot. Therefore think we will need to hold off until his acute pain and neurologic problem is improved (2) Chronic back pain: Code(s): M54.9 - Dorsalgia, unspecified; G89.29 - Other chronic pain Status: Acute Assessment and Plan: his chronic problem apparently came to a head a several days ago when he suddenly could not even stand without pain and weakness. Neurology is following him. (3) GERD (gastroesophageal reflux disease): Code(s): K21.9 - Gastro-esophageal reflux disease without esophagitis Status: Acute Assessment and Plan: He states that as long as he takes omeprazole every day he does well. GI Consult Note Consult date/time: 10/03/20 13:59 HPI: Joe Quintana is a 60 year old male Who was admitted principally because of intractable pain and weakness on the left side he has been dealing with apparently a herniated disc for many years and is under pain management. It gets to the point where he could not even walk. I am asked to see him because he has anemia which is microcytic. Also has a positive stool Hemoccult. He had an EGD a few months ago which was fairly unremarkable except for I believe a small hiatal hernia. He states that he has been eating Zantac or Pepcid for years and now is on omeprazole. Pre denies weight loss he does get heartburn but is much better than had been he denies dysphagia. He has no abdominal pain. Bowel movements are fairly regular. He had a colonoscopy long ago in [place] Review of Systems Review of Systems: All systems reviewed & are unremarkable except as noted in HPI and below PMFSH Past Medical History Medical History (Updated 10/03/20 @ 14:10 by Ander Gu MD) Anxiety BPH (benign prostatic hyperplasia) Chronic, continuous use of opioids COPD (chronic obstructive pulmonary disease) Depression DVT (deep venous thrombosis) right leg 2016 Dyslipidemia Dyspepsia Dysphagia GERD (gastroesophageal reflux disease) Hypertension NSAID long-term use NELLY (obstructive sleep apnea) PAF (paroxysmal atrial fibrillation) Retention of urine Surgical History Surgical History H/O bilateral inguinal hernia repair History of back surgery X2. L4-L5 Family History Family History Father Alcoholism Mother Alcoholism Social History Social History Social History: The patient lives with his significant other for the last 2 years. The patient is . Patient is disabled. The patient has 1 biological child another step children. The patient is a full code. His significant other is a durable power civil attorney for healthcare. The patient does continue to smoke every day. The patient stated that he quit drinking years ago. He does use marijuana. Smoking packs per day: 1 Smoking cigarettes per day: 20.0 Years smoked: 40 Smoking pack-years: 40.00 Smoking status: Current every day smoker Alcohol intake: former Substance use: current Substance use type: marijuana Other substance usage details: former alcoholism Last use: 09/30/20 Spiritual care concerns: No Meds Home Medications and Allergies Home Medications Medication Instructions Recorded Confirmed Type albuterol sulfate 90 mcg/actuation 1 puff INHALATION Q4H PRN 04/20/19 10/01/20 History aerosol inhaler clonid
[2020-10-03 18:22] LABS: Glucose Point of Care 109 mg/dl (65-105)
[2020-10-03] MEDS: FINASTERIDE 5 MG TABLET BY MOUTH (20:36)
[2020-10-03] MEDS: traZODone HCL 50 MG TABLET 100 MG PO (20:38)
[2020-10-03] MEDS: VENLAFAXINE HCL XR 75 MG CAP.ER.24H PO (20:42)
[2020-10-03 22:03] LABS: Glucose Point of Care 115 mg/dl (65-105)
[2020-10-04] VITALS: BP 151/75; PULSE 66; RESP 14; TEMP 36.6; O2SAT 98
[2020-10-04 04:00] VITALS: BP 190/100; PULSE 66; RESP 18; TEMP 36.4; O2SAT 99
[2020-10-04] MEDS: oxyCODONE HCL (*CRX) 5 MG TAB IR PO (04:22)
[2020-10-04] MEDS: oxyCODONE/ACETAMINOPHEN (*CRX) 5-325 MG TABLET 1 TABLET PO (04:23)
[2020-10-04] MEDS: gemfibroziL 600 MG TABLET PO (05:30)
[2020-10-04 05:39] LABS: Hematocrit 31.9 % (42.0-52.0); Hemoglobin 9.7 g/dL (14.0-18.0); Mean Corpuscular HGB Conc 30.4 g/dl (32-36); Mean Corpuscular Hemoglobin 22.4 pg (26-34); Mean Corpuscular Volume 73.5 fl (80-100); Mean Platelet Volume 10.9 fl (7.4-10.4); Platelet Count Result 221 k/mm3 (150-375); Red Blood Count 4.34 M/mm3 (4.6-6.20); Red Cell Distribution Width 15.8 % (11.5-14.5); White Blood Count 7.5 K/mm3 (4.5-10.0)
[2020-10-04] MEDS: hydrALAZINE HCL 50 MG TABLET 100 MG PO (05:43)
[2020-10-04 06:56] VITALS: BP 185/90
[2020-10-04 07:18] LABS: Glucose Point of Care 118 mg/dl (65-105)
[2020-10-04] MEDS: busPIRone HCL 10 MG TABLET BY MOUTH (07:48)
[2020-10-04 07:49] VITALS: PULSE 68
[2020-10-04] MEDS: cloNIDine HCL 0.1 MG TABLET PO (07:49)
[2020-10-04] MEDS: LABETALOL HCL 100 MG TABLET PO (07:49)
[2020-10-04] MEDS: GABAPENTIN 300 MG CAPSULE PO (07:49)
[2020-10-04] MEDS: DOCUSATE SODIUM 100 MG CAPSULE PO (07:49)
[2020-10-04] MEDS: FLUTICASONE PROPIONATE 0.05% NA SPR 16 GM BTL (*BKC) 1 SPRAY NASAL (07:49)
[2020-10-04] MEDS: TAMSULOSIN HCL 0.4 MG CAPSULE PO (07:50)
[2020-10-04] MEDS: PANTOPRAZOLE 40 MG TABLET PO (07:50)
[2020-10-04] MEDS: QUEtiapine FUMARATE 25 MG TABLET PO (07:50)
[2020-10-04] MEDS: NICOTINE (*PBKC) 21 MG PATCH 1 PATCH TRANSDERM (07:50)
[2020-10-04] MEDS: VENLAFAXINE HCL XR 75 MG CAP.ER.24H 150 MG PO (07:51)
[2020-10-04] MEDS: CYCLOBENZAPRINE HCL 10 MG TABLET PO (07:59)
[2020-10-04] MEDS: MONTELUKAST SODIUM 10 MG TABLET PO (08:51)
[2020-10-04 10:00] VITALS: PULSE 71; RESP 18; TEMP 36.1; O2SAT 97
--- NOTE | 2020-10-04 11:13 | PM.DS ---
DS: Admitting Diagnosis Admitting Diagnosis Admitting Diagnosis: Left leg pain weakness DS: Discharge Diagnosis Discharge Diagnosis (1) Weakness of left side of body: Code(s): R53.1 - Weakness Status: Acute Assessment and Plan: The patient is a 60 year old man with chronic back issues, presented to the ER for left leg heaviness/numbness/tingling. He states on 09/28/20 at 4 am he got up to use the bathroom and had a hard time walking to the bathroom due to numbness/tingling and weakness to his left leg. He continued to have left leg issues and decided to come to the ER for further evaluation. Initially in the ER his vitals showed, he was afebrile, non tachycardic, blood pressure 128/78, normal respiratory rate and oxygenation on room air. Initial labs showed He had normal white blood cell count, macrocytic anemia with a hemoglobin of 10, hematocrit 33%, normal neutrophil count. INR 1.5, PT high 19.1, but he is on Xarelto. Normal BMP other than elevated glucose at 134. Hemoglobin A1c found to be 6.3%. Troponin normal. Chest x-ray shows no acute cardiopulmonary disease. CTA head and neck was ordered for stroke like symptoms/work up and showed 0% stenosis of the right carotid bulb relative to normal distal artery lumen diameter (NASCET criteria). 0% stenosis of the left carotid bulb relative to normal distal artery lumen diameter. Normal cerebral angiogram. No aneurysms or hemodynamically significant stenosis of the intracranial arteries. Mild scattered white matter hypoattenuation consistent with chronic small vessel ischemic disease. No acute intracranial process or abnormally enhancing brain lesions. The patient was admitted into the hospital for further stroke workup, with MRI brain, MRI lumbar spine and neurology consultation. MRI of his brain showed Mild nonspecific cerebral white matter disease and pontine disease, which likely represents chronic small vessel ischemic disease. MRI of his lumbar spine showing moderate lumbar spondylosis. There is mildly decreased disc height at L4-L5. There is severe facet joint osteoarthritis in the lower lumbar spine. There is no moderate or severe central canal stenosis in the lumbar spine. Motion artifact severely decreases sensitivity. The patient has been doing well with PT/OT, but states it takes him while to get around due to his pain. Yesterday the patient walked 125 feet with a walker standby assist, he also completed 3 steps since he has stairs going into his house. He is independent for transfers. The patient was limited secondary to pain. The patient does feel comfortable with being discharged at this time to return home in trying get outpatient therapy and follow-up with a neurosurgeon. I gave him information for [facility] spine and neurosurgery clinic. Continue gabapentin and prescribed Flexeril. (2) Iron deficiency anemia: Code(s): D50.9 - Iron deficiency anemia, unspecified Status: Acute Assessment and Plan: Patient was found to have microcytic anemia, iron labs which showed iron deficiency anemia with % sat to 5%. I have ordered IV Venofer 300 mg for 3 days. Normal vitamin B12 and folic acid levels. Positive hemoccult stool. GI was consulted, Dr Martin, who evaluated the patient and due to his symptoms of back pain he did not think you would be able to undergo a colonoscopy prep. GI felt he was stable to be discharged to follow-up at a later date to have his colonoscopy for further evaluation. The patient denies any dark stools lately so GI believes it could be related to a hemorrhoid. GI recommends continuing the patient Xarelto as prescribed and PPI omeprazole upon discharge. Will check a CBC in 1 week for further evaluation and have him follow-up with primary care provider. Follow-up with GI as an outpatient in a few weeks. H&H otherwise stable at this time.
== END 2020-10-04 12:42 | disposition home or self-care (01) ==
LOC: ANHED 16:01 → ANH2MED 17:17
PROVIDERS: Emergency Medicine; Nurse Practitioner; Physician Assistant; Admitting Provider Family Medicine; Emergency Provider Emergency Medicine; PCP Family Medicine; Visit Provider Emergency Medicine
DX: G81.94 Hemiplegia, unspecified affecting left nondominant side (principal); M79.605 Pain in left leg; M50.30 Other cervical disc degeneration, unspecified cervical region; M47.816 Spondylosis without myelopathy or radiculopathy, lumbar region; D50.9 Iron deficiency anemia, unspecified; E78.5 Hyperlipidemia, unspecified; F17.210 Nicotine dependence, cigarettes, uncomplicated; F12.90 Cannabis use, unspecified, uncomplicated; G47.33 Obstructive sleep apnea (adult) (pediatric); G89.29 Other chronic pain; I10 Essential (primary) hypertension; I48.91 Unspecified atrial fibrillation; J44.9 Chronic obstructive pulmonary disease, unspecified; K21.9 Gastro-esophageal reflux disease without esophagitis; Z86.718 Personal history of other venous thrombosis and embolism; Z79.01 Long term (current) use of anticoagulants; R73.9 Hyperglycemia, unspecified
CPT/HCPCS: 36415; 70496; 70498; 70553; 71046; 72158; 80048; 80053; 82274; 82607; 82728; 82746; 82948; 83036; 83540; 83550; 83735; 84443; 84466; 84484; 85025; 85027; 85610; 85730; 93005; 93970; 96365; 96366; 96375; 97116; 97161; 97165; 97530; 97535; 99285; A9270; A9577; G0378; J1756; J1885; Q9967

== ENCOUNTER 2020-11-12 14:10 | Outpatient (CLI) | payer MEDICARE, SELFPAY ==
[2020-11-12 14:37] LABS: Basophils Absolute Auto 0.1 K/mm3 (0.0-0.1); Basophils Percent Auto 0.9 % (0.2-1.2); Eosinophils Absolute Auto 0.3 K/mm3 (0-0.3); Eosinophils Percent Auto 4.1 % (0-4.4); Hemoglobin 12.5 g/dL (14.0-18.0); Immature Granulocyte Absolute 0.03 K/mm3 (0.00-0.031); Immature Granulocyte Percent A 0.4 % (0-0.5); Immature Platelet Fraction Pct 9.4 % (0.9-11.2); Lymphocytes Absolute Auto 1.87 K/mm3 (0.9-3.2); Lymphocytes Percent Auto 23.1 % (18.3-44.2); Mean Corpuscular HGB Conc 31.3 g/dl (32-36); Mean Corpuscular Hemoglobin 24.6 pg (26-34); Mean Corpuscular Volume 78.7 fl (80-100); Mean Platelet Volume 11.1 fl (7.4-10.4); Monocytes Absolute Auto 0.6 K/mm3 (0.1-0.6); Monocytes Percent Auto 7.3 % (2.6-8.5); Neutrophils Absolute Auto 5.2 K/mm3 (1.3-6.7); Neutrophils Percent Auto 64.2 % (45.5-73.1); Platelet Count Result 194 k/mm3 (150-375); Red Blood Count 5.08 M/mm3 (4.6-6.20); Red Cell Distribution Width 24.3 % (11.5-14.5); White Blood Count 8.1 K/mm3 (4.5-10.0)
== END 2020-11-12 14:11 | disposition home or self-care (01) ==
PROVIDERS: PCP Family Medicine; Visit Provider Nurse Practitioner Family
DX: D50.9 Iron deficiency anemia, unspecified (principal)
CPT/HCPCS: 36415; 85025; 85055

== ENCOUNTER 2020-12-13 01:34 | Day surgery (SDC) | payer MEDICARE, SELFPAY ==
[2020-12-07 13:56] VITALS: BMI 42.5
[2020-12-13 09:37] VITALS: BP 111/72; PULSE 69; RESP 22; TEMP 36.1; O2SAT 98
[2020-12-13] MEDS: LACTATED RINGERS 1,000 ML 150 ML IV CONT (09:47)
--- NOTE | 2020-12-13 10:22 | WPDANESEPPF ---
Anes - Initial Pre Proc Eval Procedure: Operation Date: 12/13/20 10:30 Proposed Procedures p Colonoscopy - Ander Gu MD Date/Time: 12/13/20 10:22 Surgeon: Ander Gu MD Pre Op Diagnosis: KENDRICK D50.9, Positive hemoccult Patient Data Age: 60 Gender: M Height: 1.85 m Weight: 144 kg Last Vital Signs Temp 97.0 F L 12/13/20 09:37 Pulse 69 12/13/20 09:37 Resp 22 H 12/13/20 09:37 BP 111/72 12/13/20 09:37 Pulse Ox 98 12/13/20 09:37 Allergies Allergy/AdvReac Type Severity Reaction Status Date / Time Penicillins Allergy Unknown Anaphylaxis Verified 12/13/20 09:36 hydrocodone AdvReac makes me Verified 12/13/20 09:36 mean Home Medications Medication Instructions Recorded Confirmed Type albuterol sulfate 90 mcg/actuation 1 puff INHALATION Q4H PRN 04/20/19 12/07/20 History aerosol inhaler hydralazine 100 mg tablet 100 mg PO BID 04/20/19 12/07/20 History nitroglycerin 0.4 mg sublingual 0.4 mg SUBLINGUAL Q5M PRN 04/20/19 12/07/20 History tablet tamsulosin 0.4 mg capsule 0.4 mg PO DAILY 04/20/19 12/07/20 History trazodone 100 mg tablet 100 mg PO HS 04/20/19 12/07/20 History venlafaxine 225 mg tablet,extended 225 mg PO DAILY 04/20/19 12/07/20 History release 24 hr Xarelto 20 mg PO DAILY 02/01/20 12/07/20 History labetalol 100 mg PO Q12H 02/01/20 12/07/20 History buspirone 10 mg BYMOUTH DAILY PRN 10/01/20 12/07/20 History gemfibrozil 600 mg BYMOUTH BID 10/01/20 12/07/20 History montelukast [Singulair] 10 mg PO DAILY 10/01/20 12/07/20 History ferrous sulfate 324 mg PO BIDWM #60 tablet 10/04/20 12/07/20 Rx gabapentin [Neurontin] 300 mg PO TID #90 cap 10/04/20 12/07/20 Rx pantoprazole 40 mg tablet,delayed 40 mg PO BID tablet 10/26/20 12/07/20 History release oxycodone-acetaminophen 10 mg-325 1 tablet PO Q6H PRN #50 tablet 12/03/20 12/07/20 Rx mg tablet clonidine HCl 0.1 mg tablet 0.3 mg PO BID tablet 12/05/20 12/07/20 History Patient hx anesthesia problems: none Family hx anesthesia problems: none [facility] Past Medical History Medical History Anxiety BPH (benign prostatic hyperplasia) Chronic, continuous use of opioids COPD (chronic obstructive pulmonary disease) Depression DVT (deep venous thrombosis) right leg 2015 Dyslipidemia Dyspepsia Dysphagia GERD (gastroesophageal reflux disease) Hypertension NSAID long-term use NELLY (obstructive sleep apnea) PAF (paroxysmal atrial fibrillation) Retention of urine Surgical History Surgical History H/O bilateral inguinal hernia repair History of back surgery X2. L4-L5 Family History Family History Father Alcoholism Mother Alcoholism Social History Social History Social History: The patient lives with his significant other for the last 2 years. The patient is . Patient is disabled. The patient has 1 biological child another step children. The patient is a full code. His significant other is a durable power go go dancer for healthcare. The patient does continue to smoke every day. The patient stated that he quit drinking years ago. He does use marijuana. Smoking packs per day: 1 Smoking cigarettes per day: 20.0 Years smoked: 40 Smoking pack-years: 40.00 Smoking status: Former smoker Alcohol intake: former Substance use: current Substance use type: marijuana Other substance usage details: former alcoholism Last use: daily Living arrangements: with family Gender identity (if verbalized by the patient): Male Spiritual care concerns: No Anes - Eval Final PreProcedure Day of Procedure 12/13/20 10:22 Patient weight: morbidly obese Heart: regular rate and rhythm Lungs: clear to auscultation Airway: Mallampati scale class III Neurological: alert
[2020-12-13 10:53] VITALS: BP 149/93; PULSE 61; RESP 24; O2SAT 98
[2020-12-13 11:03] VITALS: BP 152/93; PULSE 63; RESP 14; O2SAT 96
[2020-12-13 11:13] VITALS: BP 127/82; PULSE 64; RESP 19; O2SAT 99
--- NOTE | 2020-12-18 07:18 | PM.HPGS ---
History of Present Illness History of Present Illness Consent: Risks, benefits, and alternatives have been discussed and questions answered. Patient agrees to proceed with procedure. Chief complaint: KENDRICK D50.9, Positive hemoccult Narrative: Joe Quintana is a 60 year old male who was referred for screening colonoscopy. He also has been found to have iron deficiency anemia. His hemoglobin earlier this year when I saw him as an inpatient was 9.7. He denies seen blood in his stools Review of Systems Review of Systems: All systems reviewed & are unremarkable except as noted in HPI and below PMFSH Past Medical History Medical History Anxiety BPH (benign prostatic hyperplasia) Chronic, continuous use of opioids COPD (chronic obstructive pulmonary disease) Depression DVT (deep venous thrombosis) right leg 2015 Dyslipidemia Dyspepsia Dysphagia GERD (gastroesophageal reflux disease) Hypertension NSAID long-term use NELLY (obstructive sleep apnea) PAF (paroxysmal atrial fibrillation) Retention of urine Surgical History Surgical History H/O bilateral inguinal hernia repair History of back surgery X2. L4-L5 Family History Family History Father Alcoholism Mother Alcoholism Social History Social History Social History: The patient lives with his significant other for the last 2 years. The patient is . Patient is disabled. The patient has 1 biological child another step children. The patient is a full code. His significant other is a durable power resourcing advisor for healthcare. The patient does continue to smoke every day. The patient stated that he quit drinking years ago. He does use marijuana. Smoking packs per day: 1 Smoking cigarettes per day: 20.0 Years smoked: 40 Smoking pack-years: 40.00 Smoking status: Former smoker Alcohol intake: former Substance use: current Substance use type: marijuana Other substance usage details: former alcoholism Last use: daily Living arrangements: with family Gender identity (if verbalized by the patient): Male Spiritual care concerns: No Meds Home Medications and Allergies Home Medications Medication Instructions Recorded Confirmed Type albuterol sulfate 90 mcg/actuation 1 puff INHALATION Q4H PRN 04/20/19 12/07/20 History aerosol inhaler hydralazine 100 mg tablet 100 mg PO BID 04/20/19 12/07/20 History nitroglycerin 0.4 mg sublingual 0.4 mg SUBLINGUAL Q5M PRN 04/20/19 12/07/20 History tablet tamsulosin 0.4 mg capsule 0.4 mg PO DAILY 04/20/19 12/07/20 History trazodone 100 mg tablet 100 mg PO HS 04/20/19 12/07/20 History venlafaxine 225 mg tablet,extended 225 mg PO DAILY 04/20/19 12/07/20 History release 24 hr Xarelto 20 mg PO DAILY 02/01/20 12/07/20 History labetalol 100 mg PO Q12H 02/01/20 12/07/20 History buspirone 10 mg BYMOUTH DAILY PRN 10/01/20 12/07/20 History gemfibrozil 600 mg BYMOUTH BID 10/01/20 12/07/20 History montelukast [Singulair] 10 mg PO DAILY 10/01/20 12/07/20 History ferrous sulfate 324 mg PO BIDWM #60 tablet 10/04/20 12/07/20 Rx gabapentin [Neurontin] 300 mg PO TID #90 cap 10/04/20 12/07/20 Rx pantoprazole 40 mg tablet,delayed 40 mg PO BID tablet 10/26/20 12/07/20 History release oxycodone-acetaminophen 10 mg-325 1 tablet PO Q6H PRN #50 tablet 12/03/20 12/07/20 Rx mg tablet clonidine HCl 0.1 mg tablet 0.3 mg PO BID tablet 12/05/20 12/07/20 History Allergies Allergy/AdvReac Type Severity Reaction Status Date / Time Penicillins Allergy Unknown Anaphylaxis Verified 12/13/20 09:36 hydrocodone AdvReac makes me Verified 12/13/20 09:36 mean Exam Const: General: alert Orientation/consciousness: patient oriented x3 Resp: Auscultation: clear to auscultation bilaterally Ca
== END 2020-12-13 11:41 | disposition home or self-care (01) ==
PROVIDERS: PCP Family Medicine; Visit Provider Internal Medicine Gastroenterology
PROC: 0DJD8ZZ Inspection of Lower Intestinal Tract, Via Natural or Artificial Opening Endoscopic (ICD-10-PCS; CPT 45378; principal; 2020-12-13 10:30)
DX: D50.9 Iron deficiency anemia, unspecified (principal); R19.5 Other fecal abnormalities; Q27.33 Arteriovenous malformation of digestive system vessel; D12.2 Benign neoplasm of ascending colon; R13.10 Dysphagia, unspecified; K21.9 Gastro-esophageal reflux disease without esophagitis; K57.30 Diverticulosis of large intestine without perforation or abscess without bleeding; I10 Essential (primary) hypertension; I48.0 Paroxysmal atrial fibrillation; N40.1 Benign prostatic hyperplasia with lower urinary tract symptoms; J44.9 Chronic obstructive pulmonary disease, unspecified; E78.5 Hyperlipidemia, unspecified; G47.33 Obstructive sleep apnea (adult) (pediatric); F41.9 Anxiety disorder, unspecified; F32.9 Major depressive disorder, single episode, unspecified; Z86.718 Personal history of other venous thrombosis and embolism; Z79.891 Long term (current) use of opiate analgesic; Z79.01 Long term (current) use of anticoagulants; Z79.1 Long term (current) use of non-steroidal anti-inflammatories (NSAID)
CPT/HCPCS: 45388; 45380; 88305; J2704; J7120

== ENCOUNTER 2021-01-23 12:30 | Outpatient (RCR) | payer MEDICARE, SELFPAY ==
--- NOTE | 2020-10-29 15:12 | PTOPEVAL ---
PHYSICAL THERAPY EVALUATION AND PLAN OF CARE Thank you for referring Joe Quintana to [facility].? The patient is scheduled to be seen for therapy? 1x/week for 5 weeks. Please review, sign, date and return this plan of care SHAYNA. I agree with and certify that the following plan of care is medically necessary. Referring Physician Date Attending Provider: Sera Hartley, CONTROL SYSTEMS TECHNICIAN Evaluation Outpatient Past Medical History Neurological History Hx Other Neurological Disorders Yes: Neurophathy BLE Cardiovascular History Hx Cardiac Catheterization Yes Hx Chest Pain Yes Hx Deep Vein Thrombosis Yes: Right leg 2016 Hx Hypertension Yes Respiratory History Hx Chronic Obstructive Pulmonary Disease Yes (COPD) Hx Sleep Apnea Yes: no CPAP- pt refuses Hx Other Respiratory Disorders Yes: SHORTNESS OF BREATH Gastrointestinal History Hx Esophageal Disorders Yes Hx Gastroesophageal Reflux Disease Yes Hx Hemorrhoids Yes Hx Ulcer Yes Hx Other Gastrointestinal Disorders Yes: Last EGD 08/31 Genitourinary History Hx Benign Prostatic Hyperplasia Yes Musculoskeletal History Hx Arthritis Yes Hx Back Pain Yes Hx Orthopedic Surgery Yes: L4-L5 disc repair Hx Other Musculoskeletal Disorders Yes: NEW ONSET MUSCLE WEAKNESS - USING CANE FOR AMBULATION HEENT History Hx Dental Problems Yes: ALL TEETH EXTRACTED Psychosocial History Hx Anxiety Yes Hx Depression Yes Pain History Has Past Pain Affected Your Daily Life Yes: BACK PAIN/LEGS/FEET History of Long-Term Prescription Pain Yes Medication Use (Opiates) Effective Methods of Pain Control Percocet Problem Diagnosis weakness, back pain Additional Evaluation Detail trial 1: BP sittin/75 BP standin/48 trial 2: BP sittin/77 BP standin/45 Subjective Information reports that he has neurpathy Query Text:As Reported By Patient/ that is getting worse and Family worse. Also has a sciatic nerve problem on the right ( sometimes both). Also reports a new dizziness problem that happens frequently throughout the day. Reports that he cannot walk long distances because of difficulty breathing and because of weakness. Joe talks a lot about how
--- NOTE | 2020-12-03 13:27 | PTOPEVAL ---
PHYSICAL THERAPY PROGRESS REPORT AND PLAN OF CARE UPDATE Thank you for referring Joe Quintana to [facility].? The patient is scheduled to be seen for therapy? 1x/week for 5 more weeks. Please review, sign, date and return this plan of care SHAYNA. I agree with and certify that the following plan of care is medically necessary. Referring Physician Date Attending Provider: Sera Hartley, MILLER HEAD ASSISTANT WET PROCESS Diagnosis weakness, back pain Additional Evaluation Detail . Subjective Information continues to report soreness Query Text:As Reported By Patient/ and dizziness and difficulty Family walking. States he has not fallen. continues to have significant difficulty with breathing while walking outside in the heat. States that he feels like he has better balance when indoors. Self Report Pain Assessment Bilateral Back Reported Pain Level 10 Pain Description Sharp,Shooting,Spasms Pain Frequency Chronic,Continuous Pain Score Pain Score 10: Self Report Interventions Used Interventions Used By Clinicians Exercise Pain Relief Interventions Used By Inactivity/Rest Patient Lower Extremity Muscle Strength Testing General Lower Extremity Strength Gross Lower Extremity Strength grossly 4+/5 throughout; no myotomal deficits Muscle Length Testing Muscle Length Testing Piriformis w/Hip Flexion >90 Degrees (R) Moderate Tightness,(L) Moderate Tightness Left Hamstring Length -50 Query Text:(90 - 90 Position) Right Hamstring Length -50 Query Text:(90 - 90 Position) Balance Assessment Wright Balance Assessment Sitting to Standing Independent w/Hands Unsupported Stance Ability Safely- 2 minutes Sitting Unsupported, Feet on Floor Safely- 2 minutes Standing to Sitting Safely, Minimal Hand Use Transfer Ability Safely, Minimal Hand Use Unsupported Stance- Eyes Closed Supervision, 10 seconds Unsupported Stance- Feet Together Independent, 1 minute Reaching Forward while Standing Safely, 5 inches superintendent menagerie Object From Floor Supervision Look Behind Shoulder - Standing Shifts Weight Unilateral Turning 360 Degrees Turns slowly, but safely Unsupported Stance, Alternating Feet on (I)- 8 Steps in > 20 secs Stair Unsupported Tandem Stance Small Step- 30 seconds Unilateral Leg Stance Lifts Leg/Unable to Hold WRIGHT Balance Evaluation Total Score (/56 43 points) Time Up Go (TUG) Timed Up and Go Test (TUG) (Seconds) 12 Assistive Devices None Comments 1 month ago - 15seconds 5 Time Sit
--- NOTE | 2020-12-10 16:21 | PCPTNOTE ---
Patient did not show up for scheduled appointment this date; patient did leave voicemail stated he was trying to get more information on his neurologist appointment on treatment. Called patient back and education on or facility having traction/ultrasound that the neurologist wants to be provided and to bring order in for clarification.
--- NOTE | 2020-12-18 13:06 | PCPTNOTE ---
Patient did not show up for scheduled appointment this date.
--- NOTE | 2021-01-07 13:34 | PTOPEVAL ---
PHYSICAL THERAPY PLAN OF CARE UPDATE Thank you for referring Joe Quintana to [facility].? The patient is scheduled to be seen for therapy? 1x/week for 4 weeks to address neck/cervical pain. We will discontinue treatment of lumbar pain as he has plateaued in improvement. There is an expectation that he will continue HEP. Please review, sign, date and return this plan of care SHAYNA. I agree with and certify that the following plan of care is medically necessary. Referring Physician Date Attending Provider: Sera Hartley, LAND LEASING INFORMATION CLERK Progress Diagnosis weakness, back pain Additional Evaluation Detail . Subjective Information states that he continues to Query Text:As Reported By Patient/ have as much pain as always Family and his feet are just beyond. continues to have dizziness and almost falls, but no falls yet. cervical pain: describes severe pain on left side of neck and states he feels like there is a bulge getting bigger and bigger on top of the left shoulder. The pain goes up into the left side of neck and feels like he has a tens unit on all the time. Left Neck Reported Pain Level 7 Pain Description Aching,Burning Bilateral Back Reported Pain Level 7 Pain Description Sharp,Shooting,Spasms Pain Frequency Chronic,Continuous Pain Score Pain Score 7,7: Self Report Interventions Used Interventions Used By Clinicians Exercise Pain Relief Interventions Used By Inactivity/Rest Patient Cervical and Lumbar ROM Cervical ROM Cervical Flexion (0-60) 50 Query Text:Active in Degrees Cervical Rotation Right (0-90) 60 Query Text:Active in Degrees Cervical Rotation Left (0-90) 60 Query Text:Active in Degrees Upper Extremity Range of Motion Scapular/ Shoulder Range of Motion Left Shoulder Flexion - Active 145 Shoulder Abduction - Active 90 Lower Extremity Muscle Strength Testing General Lower Extremity Strength Gross Lower Extremity Strength grossly 4+/5 throughout; no myotomal deficits Upper Extremity Muscle Strength Testing Scapular/Shoulder Left Shoulder Flexion Strength 4- Good - Shoulder Extension Strength 4- Good - Shoulder Medial Rotation Strength 5 Normal Shoulder Lateral Rotation Strength 5 Normal Palpation Assessment Palpation Palpation severe tightness and trigger point to left levator scap and
--- NOTE | 2021-01-28 07:48 | PCPTNOTE ---
This treatment is being continued on visit number [id number]. Please see documentation on both accounts to view progress. Completed interventions, outcomes, and problems have been marked as Inactive to facilitate the copying of the Care plan routine for recurring accounts.
== END 2021-01-27 23:59 | disposition home or self-care (01) ==
LOC: ANHPT 12:30
PROVIDERS: PCP Family Medicine; Visit Provider Nurse Practitioner
DX: R53.1 Weakness (principal); M54.5 Low back pain; M54.9 Dorsalgia, unspecified; R26.9 Unspecified abnormalities of gait and mobility
CPT/HCPCS: 97110; 97140; 97163

== ENCOUNTER 2021-02-04 12:30 | Outpatient (RCR) | payer MEDICARE, SELFPAY ==
--- NOTE | 2021-01-28 07:49 | PCPTNOTE ---
The treatment documented on this account is a continuation of the treatment documented on visit number [id number]. Please see documentation on both accounts to view progress. The Plan of Care has been transitioned and updated within the new V#. I have addressed and agree with the discipline specific Problems, Interventions, and Goals for the current certification period. Completed interventions, outcomes, and problems have been marked as Inactive to facilitate the copying of the Care plan routine for recurring accounts.
--- NOTE | 2021-02-04 13:25 | PTOPEVAL ---
PHYSICAL THERAPY DISCHARGE NOTE Thank you for referring Joe Quintana to [facility].? Please review, sign, date and return this plan of care SHAYNA. I agree with and certify that the following plan of care is medically necessary. Referring Physician Date Attending Provider: Sera Hartley, SAFETY SCIENTIST Discharge Diagnosis weakness, back pain Additional Evaluation Detail . Subjective Information cervical pain: reports that Query Text:As Reported By Patient/ the last couple of weeks has Family gone well with treatment of the neck. The tingling has pretty much gone away. There is still pain and popping in the shoulders. States he is getting a nerve conduction study done this week. Self Report Pain Assessment Generalized Reported Pain Level 6 Pain Description Aching,Pressure,Radiating, Tightness,With Movement Pain Radiation Back Pain Frequency Chronic Pain Aggravating Factors Walking,Weight Bearing/ Standing Pain Behaviors Anxious,Restless Pain Score Pain Score 6: Self Report Interventions Used Interventions Used By Clinicians Exercise,Heat,Manual Therapy Techniques Pain Relief Interventions Used By Inactivity/Rest Patient Cervical and Lumbar ROM Cervical ROM Cervical Flexion (0-60) 50 Query Text:Active in Degrees Cervical Extension (0-70) 50 Query Text:Active in Degrees Cervical Rotation Right (0-90) 80 Query Text:Active in Degrees Cervical Rotation Left (0-90) 60 Query Text:Active in Degrees Upper Extremity Range of Motion Scapular/ Shoulder Range of Motion Left Shoulder Flexion - Active 150 Shoulder Abduction - Active 130 Scapular/Shoulder Range of Motion describes pain and popping in Comments the left shoulder with AROM, reports there a giving out feeling in the left shoulder at times. Upper Extremity Muscle Strength Testing Scapular/Shoulder Left Shoulder Flexion Strength 4+ Good + Shoulder Abduction Strength 4+ Good + Shoulder Medial Rotation Strength 5 Normal Shoulder Lateral Rotation Strength 5 Normal Palpation Assessment Palpation Palpation severe tightness and trigger point to left levator scap and upper trapezius and infraspinatus - very tender to
== END 2021-02-04 15:26 | disposition home or self-care (01) ==
LOC: ANHPT 12:30
PROVIDERS: PCP Family Medicine; Visit Provider Nurse Practitioner
DX: R53.1 Weakness (principal); M54.50 Low back pain, unspecified; M47.816 Spondylosis without myelopathy or radiculopathy, lumbar region; M54.2 Cervicalgia; M54.9 Dorsalgia, unspecified; R26.9 Unspecified abnormalities of gait and mobility; R29.898 Other symptoms and signs involving the musculoskeletal system
CPT/HCPCS: 97110; 97140

== ENCOUNTER 2021-04-11 12:56 | Outpatient (CLI) | payer MEDICARE, SELFPAY ==
[2021-04-11 13:15] LABS: Basophils Absolute Auto 0.1 K/mm3 (0.0-0.1); Basophils Percent Auto 1.2 % (0.2-1.2); Eosinophils Absolute Auto 0.2 K/mm3 (0-0.3); Eosinophils Percent Auto 3.1 % (0-4.4); Hematocrit 39.1 % (42.0-52.0); Hemoglobin 12.5 g/dL (14.0-18.0); Immature Granulocyte Absolute 0.02 K/mm3 (0.00-0.031); Immature Granulocyte Percent A 0.3 % (0-0.5); Lymphocytes Absolute Auto 1.29 K/mm3 (0.9-3.2); Lymphocytes Percent Auto 18.9 % (18.3-44.2); Mean Corpuscular Hemoglobin 26.2 pg (26-34); Mean Platelet Volume 10.7 fl (7.4-10.4); Monocytes Absolute Auto 0.5 K/mm3 (0.1-0.6); Monocytes Percent Auto 7.7 % (2.6-8.5); Neutrophils Absolute Auto 4.7 K/mm3 (1.3-6.7); Neutrophils Percent Auto 68.8 % (45.5-73.1); Platelet Count Result 184 k/mm3 (150-375); Red Blood Count 4.77 M/mm3 (4.6-6.20); Red Cell Distribution Width 15.6 % (11.5-14.5); White Blood Count 6.8 K/mm3 (4.5-10.0)
[2021-04-11 13:29] LABS: Alanine Aminotransferase 22 U/L (4-50); Albumin Level 4.6 g/dL (3.5-5.1); Alkaline Phosphatase 88 U/L (38-126); Anion Gap 9 mmol/L (8-16); Aspartate Amino Transferase 25 U/L (17-59); Bilirubin,Total 0.3 mg/dL (0.2-1.3); Blood Urea Nitrogen 18 mg/dL (9-20); Calcium 9.2 mg/dL (8.4-10.2); Carbon Dioxide 24 mmol/L (22-30); Chloride 107 mmol/L (98-107); Cholesterol 142 mg/dL (0-200); Estimated Glomerular Filt Rate > 60; Glucose 148 mg/dL (65-110); HDL Direct 40 mg/dL; Potassium 3.9 mmol/L (3.4-5.0); Sodium 140 mmol/L (137-145); Triglycerides 151 mg/dL (<150)
[2021-04-11 13:40] LABS: LDL Cholesterol Direct 78 mg/dL
[2021-04-11 13:45] LABS: Free T4 Free Thyroxine 0.75 ng/mL (0.78-2.19); Vitamin D 25 Hydroxy 60.3 ng/mL
[2021-04-11 13:59] LABS: Prostate Specific Antigen 0.3 ng/mL (< OR = 4.0)
== END 2021-04-11 12:57 | disposition home or self-care (01) ==
PROVIDERS: PCP Family Medicine; Visit Provider Family Medicine
DX: M10.9 Gout, unspecified (principal); M62.81 Muscle weakness (generalized); E55.9 Vitamin D deficiency, unspecified; I10 Essential (primary) hypertension; E03.9 Hypothyroidism, unspecified; E78.2 Mixed hyperlipidemia; Z12.5 Encounter for screening for malignant neoplasm of prostate
CPT/HCPCS: 36415; 80053; 80061; 82306; 84153; 84439; 84443; 84480; 85025; G0103

== ENCOUNTER 2021-06-26 15:41 | Emergency (ER) | payer MEDICARE, SELFPAY ==
--- NOTE | ~2021-06-26 | CT_ITS ---
EXAMINATION: CT brain wo con DATE: 06/26/2021 16:22 INDICATION: Head injury. TECHNIQUE: Computed tomography (CT) of the head was performed without intravenous contrast. The mA wa s adjusted according to patient size. Iterative reconstruction technique was employed. The dose-lengt h product was 681.00 mGy-cm. COMPARISON: Head CT 10/01/2020, brain MRI 10/02/2020 FINDINGS: There are scattered areas of low attenuation in the cerebral white matter. There is no intr acranial hemorrhage, acute infarction, or abnormal intracranial mass lesion. The ventricles are hoang l in size. There is mucosal thickening in the paranasal sinuses. The orbits are normal. There is a le ft frontal scalp hematoma. There is a fracture of the left frontal skull with involvement of the left frontal sinus and left orbital roof. There is a small right mastoid effusion. IMPRESSION: 1. Fracture of the left frontal skull including involvement of the left frontal sinus and left orbita l roof. 2. Mild nonspecific cerebral white matter disease, which likely represents chronic small vessel ische lon disease. Reviewed, dictated and finalized at location A. IMPRESSION: 1. Fracture of the left frontal skull including involvement of the left frontal sinus and left orbital roof. 2. Mild nonspecific cerebral white matter disease, which likely represents lunchroom aide christoph small vessel ischemic disease.
--- NOTE | ~2021-06-26 | CT_ITS ---
EXAMINATION: CT cervical spine wo con DATE: 06/26/2021 16:22 INDICATION: Head injury. TECHNIQUE: Computed tomography (CT) of the cervical spine was performed without intravenous contrast. Automated exposure control and iterative reconstruction technique were employed. The dose-length pro duct was 612.98 mGy-cm. COMPARISON: CT cervical spine 10/22/2016 FINDINGS: There is kyphosis of cervical spine. There is 6 degrees dextrocurvature of cervical spine. Vertebral body heights are normal. There is moderately decreased disc height at C3-C4 and C6-C7 and m ildly decreased disc height at C4-C5 and C5-C6. The following disc levels are specifically discussed: C2-C3: There is mild left uncovertebral joint osteoarthritis. There is mild right and severe left fac et joint osteoarthritis. There is moderate left neural foraminal stenosis. There is no central canal stenosis. C3-C4: There is moderate right and severe left uncovertebral joint osteoarthritis. There is moderate and severe left facet joint osteoarthritis. There is mild right and moderate left neural foraminal st enosis. There is mild central canal stenosis. C4-C5: There is mild bilateral uncovertebral joint osteoarthritis. There is severe left facet joint o steoarthritis. There is mild left neural foraminal stenosis. There is mild central canal stenosis. C5-C6: There is mild bilateral uncovertebral joint osteoarthritis. There is mild right and moderate l eft facet joint osteoarthritis. There is no neural foraminal stenosis. There is mild central canal st enosis. C6-C7: There is severe bilateral uncovertebral joint osteoarthritis. There is mild right and severe l eft facet joint osteoarthritis. There is mild bilateral neural foraminal stenosis. There is mild cent ral canal stenosis. C7-T1: There is no uncovertebral joint osteoarthritis. There is mild bilateral facet joint osteoarthr itis. There is no neural foraminal stenosis. There is no central canal stenosis. IMPRESSION: 1. No fracture. 2. Moderate cervical spondylosis. Reviewed, dictated and finalized at location A.
[2021-06-26 15:53] VITALS: BP 196/104; PULSE 73; RESP 16; TEMP 36.2; O2SAT 98
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
[2021-06-26] MEDS: ACETAMINOPHEN 500 MG TABLET 1000 MG PO (18:06)
[2021-06-26 18:07] LABS: Basophils Absolute Auto 0.1 K/mm3 (0.0-0.1); Basophils Percent Auto 0.8 % (0.2-1.2); Eosinophils Absolute Auto 0.2 K/mm3 (0-0.3); Eosinophils Percent Auto 1.5 % (0-4.4); Hematocrit 30.7 % (42.0-52.0); Hemoglobin 9.4 g/dL (14.0-18.0); Immature Granulocyte Absolute 0.06 K/mm3 (0.00-0.031); Immature Granulocyte Percent A 0.6 % (0-0.5); Lymphocytes Absolute Auto 1.29 K/mm3 (0.9-3.2); Lymphocytes Percent Auto 12.7 % (18.3-44.2); Mean Corpuscular HGB Conc 30.6 g/dl (32-36); Mean Corpuscular Hemoglobin 22.5 pg (26-34); Mean Corpuscular Volume 73.6 fl (80-100); Mean Platelet Volume 10.9 fl (7.4-10.4); Monocytes Absolute Auto 0.7 K/mm3 (0.1-0.6); Monocytes Percent Auto 6.5 % (2.6-8.5); Neutrophils Percent Auto 77.9 % (45.5-73.1); Platelet Count Result 236 k/mm3 (150-375); Red Blood Count 4.17 M/mm3 (4.6-6.20); Red Cell Distribution Width 15.9 % (11.5-14.5); White Blood Count 10.2 K/mm3 (4.5-10.0)
[2021-06-26 18:16] LABS: INR 1.2; Prothrombin Time 14.6 Seconds (11.1-14.7)
[2021-06-26 18:17] LABS: Partial Thromboplastin Time 33.8 SECONDS (22.3-36.8)
[2021-06-26 18:18] LABS: Alanine Aminotransferase 19 U/L (4-50); Albumin Level 4.6 g/dL (3.5-5.1); Alkaline Phosphatase 88 U/L (38-126); Anion Gap 9 mmol/L (8-16); Aspartate Amino Transferase 28 U/L (17-59); Bilirubin,Total 0.4 mg/dL (0.2-1.3); Blood Urea Nitrogen 16 mg/dL (9-20); Calcium 8.9 mg/dL (8.4-10.2); Carbon Dioxide 25 mmol/L (22-30); Chloride 105 mmol/L (98-107); Estimated CRCL calculation 127 ml/min; Estimated Glomerular Filt Rate > 60; Glucose 145 mg/dL (65-110); Potassium 4.1 mmol/L (3.4-5.0); Sodium 139 mmol/L (137-145)
[2021-06-26 18:59] VITALS: BP 172/94; PULSE 75; RESP 16; TEMP 36.6; O2SAT 97
== END 2021-06-26 18:58 | disposition home or self-care (01) ==
LOC: ANHED 17:55
PROVIDERS: Emergency Provider Nurse Practitioner Family; PCP Family Medicine
DX: S02.0XXA Fracture of vault of skull, initial encounter for closed fracture (principal); M47.812 Spondylosis without myelopathy or radiculopathy, cervical region; F41.9 Anxiety disorder, unspecified; N40.0 Benign prostatic hyperplasia without lower urinary tract symptoms; J44.9 Chronic obstructive pulmonary disease, unspecified; F32.9 Major depressive disorder, single episode, unspecified; K21.9 Gastro-esophageal reflux disease without esophagitis; I10 Essential (primary) hypertension; G47.30 Sleep apnea, unspecified; I48.91 Unspecified atrial fibrillation; Z79.01 Long term (current) use of anticoagulants; W22.09XA Striking against other stationary object, initial encounter
CPT/HCPCS: 36415; 70450; 72125; 80053; 85025; 85610; 85730; 99284; A9270

== ENCOUNTER 2021-07-04 07:23 | Emergency (ER) | payer MEDICARE, SELFPAY ==
--- NOTE | ~2021-07-04 | XR_ITS ---
XR chest 2V 07/04/2021 07:59 Indication: Right-sided chest pain. COPD. Procedure: 2 view chest Comparison: 10/01/2020 Findings: Moderate cardiomegaly. No focal air space disease, pulmonary edema, pleural effusion or dai pected pneumothorax. No acute osseous abnormality. Impression: 1: No acute cardiopulmonary disease. 2: Cardiomegaly. Reviewed, dictated and finalized at location A. Impression: 1: No acute cardiopulmonary disease. 2: Cardiomegaly.
--- NOTE | 2021-07-04 07:24 | ECG_ITS ---
Measurements Intervals [place] Rate: 72 P: 16 MD: 164 QRS: 15 QRSD: 179 T: 3 QT: 426 QTc: 468 Interpretive Statements SINUS RHYTHM RIGHT BUNDLE BRANCH BLOCK [120+ ms QRS DURATION, UPRIGHT V1, 40+ ms S IN I/aVL/V4/V5/V6] MODERATE T-WAVE ABNORMALITY, CONSIDER LATERAL ISCHEMIA [-0.1+ mV T WAVE IN I/aVL/V5/V6] ABNORMAL ECG COMPARED TO ECG 10/01/2020 11:09:18 NO SIGNIFICANT CHANGES Electronically Signed On 07-04-2021 15:56:36 CDT by Alonso Landin M.D.
[2021-07-04 07:28] VITALS: BP 180/126; PULSE 66; RESP 25; TEMP 36.7; O2SAT 100
[2021-07-04] MEDS: ASPIRIN 81 MG CHEWABLE TABLET 324 MG PO (08:10)
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
[2021-07-04 08:24] LABS: Basophils Absolute Auto 0.1 K/mm3 (0.0-0.1); Eosinophils Absolute Auto 0.4 K/mm3 (0-0.3); Eosinophils Percent Auto 4.3 % (0-4.4); Hemoglobin 9.8 g/dL (14.0-18.0); Immature Granulocyte Absolute 0.07 K/mm3 (0.00-0.031); Immature Granulocyte Percent A 0.8 % (0-0.5); Lymphocytes Absolute Auto 2.11 K/mm3 (0.9-3.2); Lymphocytes Percent Auto 24.3 % (18.3-44.2); Mean Corpuscular HGB Conc 29.7 g/dl (32-36); Mean Corpuscular Hemoglobin 22.3 pg (26-34); Mean Corpuscular Volume 75.2 fl (80-100); Mean Platelet Volume 10.7 fl (7.4-10.4); Monocytes Absolute Auto 0.9 K/mm3 (0.1-0.6); Monocytes Percent Auto 9.8 % (2.6-8.5); Neutrophils Absolute Auto 5.2 K/mm3 (1.3-6.7); Neutrophils Percent Auto 59.8 % (45.5-73.1); Platelet Count Result 213 k/mm3 (150-375); Red Blood Count 4.39 M/mm3 (4.6-6.20); Red Cell Distribution Width 19.2 % (11.5-14.5); White Blood Count 8.7 K/mm3 (4.5-10.0)
[2021-07-04 08:33] LABS: Alanine Aminotransferase 17 U/L (4-50); Albumin Level 4.5 g/dL (3.5-5.1); Alkaline Phosphatase 69 U/L (38-126); Anion Gap 8 mmol/L (8-16); Aspartate Amino Transferase 26 U/L (17-59); Bilirubin,Total 0.4 mg/dL (0.2-1.3); Blood Urea Nitrogen 16 mg/dL (9-20); Calcium 8.6 mg/dL (8.4-10.2); Carbon Dioxide 26 mmol/L (22-30); Chloride 105 mmol/L (98-107); Estimated CRCL calculation 130 ml/min; Estimated Glomerular Filt Rate > 60; Glucose 135 mg/dL (65-110); Lipase 83 U/L (23-300); Sodium 139 mmol/L (137-145)
[2021-07-04] MEDS: MORPHINE SULFATE (*CRX) 2 MG/ML INJ IV PUSH (08:34)
[2021-07-04 08:36] LABS: INR 1.2; Prothrombin Time 15.1 Seconds (11.1-14.7)
[2021-07-04 08:37] LABS: Partial Thromboplastin Time 35.6 SECONDS (22.3-36.8)
[2021-07-04 08:44] LABS: Troponin I < 0.012 ng/mL (0.000-0.034)
== END 2021-07-04 10:48 | disposition home or self-care (01) ==
PROVIDERS: Emergency Medicine; Emergency Provider Family Medicine; PCP Family Medicine
DX: R07.89 Other chest pain (principal); I48.0 Paroxysmal atrial fibrillation; J44.9 Chronic obstructive pulmonary disease, unspecified; E78.5 Hyperlipidemia, unspecified; I10 Essential (primary) hypertension; G47.33 Obstructive sleep apnea (adult) (pediatric); N40.0 Benign prostatic hyperplasia without lower urinary tract symptoms; K21.9 Gastro-esophageal reflux disease without esophagitis; F32.A Depression, unspecified; F41.9 Anxiety disorder, unspecified; Z86.718 Personal history of other venous thrombosis and embolism; Z79.01 Long term (current) use of anticoagulants; I45.10 Unspecified right bundle-branch block; R94.31 Abnormal electrocardiogram [ECG] [EKG]
CPT/HCPCS: 36415; 71046; 80053; 83690; 84484; 85025; 85610; 85730; 93005; 96374; 99284; A9270; J2270

== ENCOUNTER 2021-07-09 10:25 | Emergency (ER) | payer MEDICARE, SELFPAY ==
--- NOTE | ~2021-07-09 | XR_ITS ---
EXAMINATION: XR chest 2V DATE: 07/09/2021 11:54 INDICATION: Right-sided chest pain. Shortness of breath. TECHNIQUE: Frontal and lateral views of the chest were obtained. COMPARISON: Chest 2 views 07/04/2021 FINDINGS: There is mild atelectasis in the lower lung zones. There is a 2 cm nodule in right midlung zone laterally. No pleural effusion or pneumothorax. Cardiomegaly is noted. There is a chronic compre ssion fracture of T8 vertebral body. IMPRESSION: 1. Nodule in right midlung zone, which may be infection or malignancy. Chest CT is recommended. 2. Mild atelectasis in the lower lung zones. 3. Cardiomegaly. Reviewed, dictated and finalized at location A.
--- NOTE | ~2021-07-09 | CT_ITS ---
EXAMINATION: CTA chest PE protocol EXAM DATE: 07/09/2021 12:17 INDICATION: SOB, elev d dimer TECHNIQUE: Spiral CTA of the chest (pulmonary arteries) was performed with 100 cc Omnipaque 350 intr avenous contrast injection. Images were acquired during the pulmonary arterial phase. Coronal maxi mum intensity projection 3D-reconstructions were created by the technologist on dedicated workstation . Axial, coronal and sagittal reformatted images were reviewed. The dose-length product (DLP) for t his examination was 1145.62 mGy-cm. The exposure was tailored according to patient size (auto mA ex posure control), and iterative reconstruction (ASIR) was used as additional dose reduction technique. Comparison is made to prior examination from 02/27/2020. FINDINGS: There are no pulmonary emboli in the 1st through 3rd order (central and interlobar) pulmon moody arteries. Some loss of attenuation in the basilar segmental pulmonary from respiratory motion, t hese regions not confidently evaluated. No Intraluminal filling defects identified. No thoracic aor tic dissection. Small amount of dependent atelectasis. There is small right pleural effusion. Trac heobronchial tree is patent. There is no mediastinal, hilar or axillary lymphadenopathy. There is no pneumothorax. The cardiac silhouette is enlarged. There is mild coronary arterial calcification, arterial sclero sis. 5 cm left renal lesion image portion consistent with cyst. There is mild thoracic spondylosis without osteoblastic or osteolytic lesions identified. IMPRESSION: 1. No pulmonary emboli suspected. 2. Mild cardiomegaly. Small right pleural effusion. Reviewed, dictated and finalized at location B.
--- NOTE | 2021-07-09 10:26 | ECG_ITS ---
Measurements Intervals [place] Rate: 76 P: 0 NH: 175 QRS: 17 QRSD: 182 T: 0 QT: 413 QTc: 466 Interpretive Statements SINUS RHYTHM RIGHT BUNDLE BRANCH BLOCK [120+ ms QRS DURATION, UPRIGHT V1, 40+ ms S IN I/aVL/V4/V5/V6] COMPARED TO ECG 07/04/2021 07:29:51 NO SIGNIFICANT CHANGES Electronically Signed On 07-09-2021 17:29:03 CDT by Carlos Brown M.D.
[2021-07-09 10:42] VITALS: BP 139/86; PULSE 71; RESP 18; TEMP 36.4; O2SAT 99
[2021-07-09 10:52] LABS: Basophils Absolute Auto 0.1 K/mm3 (0.0-0.1); Basophils Percent Auto 1.1 % (0.2-1.2); Eosinophils Absolute Auto 0.3 K/mm3 (0-0.3); Eosinophils Percent Auto 3.2 % (0-4.4); Hemoglobin 10.2 g/dL (14.0-18.0); Immature Granulocyte Absolute 0.04 K/mm3 (0.00-0.031); Immature Granulocyte Percent A 0.4 % (0-0.5); Immature Platelet Fraction Pct 8.3 % (0.9-11.2); Lymphocytes Absolute Auto 1.57 K/mm3 (0.9-3.2); Lymphocytes Percent Auto 16.3 % (18.3-44.2); Mean Corpuscular HGB Conc 29.1 g/dl (32-36); Mean Corpuscular Hemoglobin 22.4 pg (26-34); Mean Corpuscular Volume 76.8 fl (80-100); Mean Platelet Volume 11.2 fl (7.4-10.4); Monocytes Absolute Auto 0.9 K/mm3 (0.1-0.6); Monocytes Percent Auto 8.9 % (2.6-8.5); Neutrophils Absolute Auto 6.8 K/mm3 (1.3-6.7); Neutrophils Percent Auto 70.1 % (45.5-73.1); Platelet Count Result 213 k/mm3 (150-375); Red Blood Count 4.56 M/mm3 (4.6-6.20); Red Cell Distribution Width 19.6 % (11.5-14.5); White Blood Count 9.7 K/mm3 (4.5-10.0)
[2021-07-09 10:54] LABS: Alanine Aminotransferase 20 U/L (4-50); Albumin Level 4.8 g/dL (3.5-5.1); Alkaline Phosphatase 81 U/L (38-126); Anion Gap 11 mmol/L (8-16); Aspartate Amino Transferase 26 U/L (17-59); Bilirubin,Total 0.4 mg/dL (0.2-1.3); Blood Urea Nitrogen 20 mg/dL (9-20); Calcium 9.1 mg/dL (8.4-10.2); Carbon Dioxide 24 mmol/L (22-30); Chloride 106 mmol/L (98-107); Estimated CRCL calculation 104 ml/min; Estimated Glomerular Filt Rate > 60; Glucose 151 mg/dL (65-110); Lipase 69 U/L (23-300); Potassium 3.8 mmol/L (3.4-5.0); Sodium 141 mmol/L (137-145)
[2021-07-09 10:56] LABS: Partial Thromboplastin Time 32.8 SECONDS (22.3-36.8); Prothrombin Time 12.6 Seconds (11.1-14.7)
[2021-07-09 11:05] LABS: Troponin I < 0.012 ng/mL (0.000-0.034)
[2021-07-09 11:13] LABS: Hypochromasia 1+ (NORMAL); Ovalocytes 1+ (NORMAL); Platelet Estimate Adequate (Adequate)
--- NOTE | 2021-07-09 11:29 | ED.CHESTPAIN ---
HPI - Chest Pain General Chief Complaint: Chest Pain Stated Complaint: chest pain Time Seen by Provider: 07/09/21 11:20 Source: patient Mode of arrival: ambulatory Limitations: no limitations History of Present Illness HPI narrative: Patient is a 60-year-old male complaining of chest pain, right-sided, sharp, 7 out of 10, nonradiating, worse with coughing, deep breaths and movement started 5 days ago. Patient was seen here for the same complaint and had a negative work-up. Patient denies any shortness of breath, abdominal pain, nausea, vomiting, diaphoresis, fever or chills. Related Data Home Medications Medication Instructions Recorded Confirmed albuterol sulfate 90 mcg/actuation 1 puff INHALATION Q4H PRN 04/20/19 12/07/20 aerosol inhaler hydralazine 100 mg tablet 100 mg PO BID 04/20/19 12/07/20 nitroglycerin 0.4 mg sublingual 0.4 mg SUBLINGUAL Q5M PRN 04/20/19 12/07/20 tablet tamsulosin 0.4 mg capsule 0.4 mg PO DAILY 04/20/19 12/07/20 trazodone 100 mg tablet 100 mg PO HS 04/20/19 12/07/20 venlafaxine 225 mg tablet,extended 225 mg PO DAILY 04/20/19 12/07/20 release 24 hr Xarelto 20 mg PO DAILY 02/01/20 12/07/20 labetalol 100 mg PO Q12H 02/01/20 12/07/20 buspirone 10 mg BYMOUTH DAILY PRN 10/01/20 12/07/20 gemfibrozil 600 mg BYMOUTH BID 10/01/20 12/07/20 montelukast [Singulair] 10 mg PO DAILY 10/01/20 12/07/20 pantoprazole 40 mg tablet,delayed 40 mg PO BID tablet 10/26/20 12/07/20 release clonidine HCl 0.1 mg tablet 0.3 mg PO BID tablet 12/05/20 12/07/20 Allergies Allergy/AdvReac Type Severity Reaction Status Date / Time Penicillins Allergy Unknown Anaphylaxis Verified 06/26/21 16:06 hydrocodone AdvReac makes me Verified 06/26/21 16:06 mean Review of Systems Review of Systems: All systems reviewed & are unremarkable except as noted in HPI and below Constitutional: Constitutional: Denies body ache(s), Denies chills, Denies excessive sweating, Denies fatigue, Denies fever(s), Denies headache(s), Denies lethargy, Denies malaise, Denies weakness and Denies weight loss Eyes: Eyes: Denies blurry vision, Denies change in vision and Denies loss of vision ENT: Denies dizziness, Denies ear discharge, Denies headache(s), Denies lip swelling, Denies epistaxis, Denies nasal congestion, Denies neck pain, Denies throat swelling and Denies tongue swelling Cardiovascular: Cardiovascular: Denies diaphoresis, Denies rapid heart rate, Denies edema, Denies irregular heart rhythm, Denies lightheadedness, Denies palpitations, Denies dyspnea and Denies dyspnea on exertion Respiratory: Respiratory: Denies chest congestion, Denies cough, Denies hemoptysis, Denies dyspnea and Denies dyspnea on exertion Gastrointestinal: Gastrointestinal: Denies abdominal pain, Denies melena, Denies hematochezia, Denies diarrhea, Denies nausea, Denies vomiting and Denies hematemesis Musculoskeletal: Musculoskeletal: Denies abnormal gait, Denies deformity, Denies joint swelling, Denies limited range of motion, Denies neck pain and Denies numbness Neurologic: Denies Abnormal speech present, Denies abnormal gait, Denies confusion, Denies dizziness, Denies headache(s), Denies focal weakness, Denies loss of vision, Denies numbness, Denies Other visual disturbances, Denies Sensory deficit (Neuro) and Denies weakness Psychiatric: Psychiatric: Denies confusion, Denies depression, Denies auditory hallucinations, Denies homicidal ideation and Denies suicidal ideation Endocrine: Endocrine: Denies cold intolerance, Denies excessive sweating, Denies fatigue, Denies heat intolerance and Denies palpitations Hematologic/Lymphatic: Hematologic/Lymphatic: Denies easy bleeding and Denies easy bruising Allergic/Immunologic: Allergic/Immunologic: Denies lip swelling, Denies throat swelling and Denies tongue swelling PMFSH Past Medical History Medical History Anxiety BPH (benign prostatic hyperplasia) Chronic, co
[2021-07-09 11:49] VITALS: BP 164/98; PULSE 73; RESP 16; O2SAT 98
[2021-07-09 12:02] VITALS: PULSE 69; O2SAT 99
[2021-07-09 12:29] VITALS: BP 143/104; PULSE 78; RESP 16; O2SAT 99
[2021-07-09] MEDS: ASPIRIN 81 MG CHEWABLE TABLET 324 MG PO (12:54)
[2021-07-09] MEDS: MORPHINE SULFATE (*CRX) 2 MG/ML INJ IV PUSH (13:05)
[2021-07-09 14:15] LABS: Troponin I < 0.012 ng/mL (0.000-0.034)
[2021-07-09 16:04] VITALS: BP 168/95; PULSE 72; RESP 19; O2SAT 99
== END 2021-07-09 16:05 | disposition home or self-care (01) ==
PROVIDERS: Emergency Provider Emergency Medicine; PCP Family Medicine
DX: R07.89 Other chest pain (principal); R09.1 Pleurisy; I48.0 Paroxysmal atrial fibrillation; J44.9 Chronic obstructive pulmonary disease, unspecified; E78.5 Hyperlipidemia, unspecified; I10 Essential (primary) hypertension; N40.0 Benign prostatic hyperplasia without lower urinary tract symptoms; K21.9 Gastro-esophageal reflux disease without esophagitis; G47.33 Obstructive sleep apnea (adult) (pediatric); F41.9 Anxiety disorder, unspecified; Z86.718 Personal history of other venous thrombosis and embolism; Z87.891 Personal history of nicotine dependence; Z79.01 Long term (current) use of anticoagulants; I45.10 Unspecified right bundle-branch block; I51.7 Cardiomegaly
CPT/HCPCS: 36415; 71046; 71275; 80053; 83690; 84484; 85025; 85055; 85610; 85730; 93005; 96374; 99284; A9270; J2270; Q9967

== ENCOUNTER 2021-10-15 16:43 | Emergency (ER) | payer MEDICARE, SELFPAY ==
--- NOTE | ~2021-10-15 | XR_ITS ---
XR chest 2V DATE: 10/15/2021 18:00 INDICATION: Chest pain, shortness of breath. History of hypertension. TECHNIQUE: PA and lateral views COMPARISON: 07/09/2021 CT chest FINDINGS: Mild cardiomegaly. Mild aortic tortuosity. No hilar or mediastinal enlargement. No pulmonar y infiltrate or consolidation, pneumothorax. No pleural effusion is evident. Included skeletal structures are unremarkable. IMPRESSION: Mild cardiomegaly No active pulmonary disease Reviewed, dictated and finalized at location A.
--- NOTE | ~2021-10-15 | US_ITS ---
EXAMINATION: US venous doppler LE RT DATE: 10/15/2021 17:31 INDICATION: R leg pain, swelling, warmth, Hx of DVT . TECHNIQUE: Grayscale images without and with compression and Doppler images of the right lower extrem ity veins were obtained. COMPARISON: None FINDINGS: The right common femoral vein, profunda (deep) femoral vein, femoral vein, popliteal vein, peroneal v ein, posterior tibial veins, lesser saphenous vein, and greater saphenous vein are patent. IMPRESSION: 1. Patent right lower extremity veins. No evidence of deep venous thrombosis. Reviewed, dictated and finalized at location K.
--- NOTE | ~2021-10-15 | XR_ITS ---
XR toe 2nd RT min 2V DATE: 10/15/2021 17:46 INDICATION: Redness, swelling and scalloping at second digit TECHNIQUE: 3 views COMPARISON: None FINDINGS: There is prominent soft tissue swelling of the second digit. No fracture, dislocation, periosteal reaction or bone destruction is detected. IMPRESSION: Prominent soft tissue swelling Reviewed, dictated and finalized at location A.
[2021-10-15 16:47] VITALS: BP 121/77; PULSE 77; RESP 18; TEMP 36.6; O2SAT 97
--- NOTE | 2021-10-15 17:06 | ED.GENADULT ---
HPI - General Adult General Chief complaint: Extremity Problem,Nontraumatic Stated complaint: right leg pain, hx dvt Time Seen by Provider: 10/15/21 16:59 Source: patient Mode of arrival: ambulatory Limitations: no limitations History of Present Illness HPI narrative: Patient is a 61 y/o male who presents to the ED with complaint of right lower extremity pain, redness, and swelling. Patient reports history of a right lower extremity DVT in 2016. He has been on Xarelto since. He does note about a week ago, he did miss 5 days worth of Xarelto as his prescription had not come in the mail yet. Over the last 1 week, he has had pain, redness, swelling to his right thigh. The pain and redness began in the calf initially, but over the last 2 days, they have spread to his right inner thigh. Patient saw his PCP today and was given an outpatient order for a RLE venous Doppler ultrasound. Patient then came to the ED. Patient reports he had a temperature of 102 degrees at his PCP's office. He was not given any Tylenol or ibuprofen prior to arrival. Temperature here 98 ?F. He also reports having chronic shortness of breath, but denies any worsening of this recently. Reports intermittent chest pain for the last 1 month. He does have a chronic wound to his right second toe with redness, ulceration, scabbing. He has a history of peripheral neuropathy and has minimal feeling in his lower extremities, but he denies a history of DM. Related Data Home Medications Medication Instructions Recorded Confirmed albuterol sulfate 90 mcg/actuation 1 puff inhalation Q4H PRN Wheezing 04/20/19 08/05/21 aerosol inhaler (Ventolin HFA) hydralazine 100 mg tablet 100 mg PO BID 04/20/19 08/05/21 nitroglycerin 0.4 mg sublingual 0.4 mg sublingual Q5M PRN Pain 04/20/19 08/05/21 tablet (Nitrostat) tamsulosin 0.4 mg capsule 0.4 mg PO DAILY 04/20/19 08/05/21 trazodone 100 mg tablet 100 mg PO HS 04/20/19 08/05/21 venlafaxine 225 mg tablet,extended 225 mg PO DAILY 04/20/19 08/05/21 release 24 hr labetalol 100 mg tablet 100 mg PO Q12H 02/01/20 08/05/21 rivaroxaban 20 mg tablet (Xarelto) 20 mg PO DAILY 02/01/20 08/05/21 gemfibrozil 600 mg BYMOUTH BID 10/01/20 08/05/21 montelukast 10 mg tablet 10 mg PO DAILY 10/01/20 08/05/21 (Singulair) clonidine HCl 0.1 mg tablet 0.3 mg PO BID 12/05/20 08/05/21 Allergies Allergy/AdvReac Type Severity Reaction Status Date / Time Penicillins Allergy Unknown Anaphylaxis Verified 08/05/21 14:14 hydrocodone AdvReac makes me Verified 08/05/21 14:14 mean Review of Systems Review of Systems: CONSTITUTIONAL: Reports fever. Denies chills, or sweats. CARDIOVASCULAR: Reports intermittent CP. Denies palpitations. RESPIRATORY: Reports chronic SOB. Denies cough. GASTROINTESTINAL: Denies abdominal pain, nausea, vomiting. SKIN: Reports redness/swelling to RLE/R posterior calf. Reports chronic wound to R 2nd toe. MUSCULOSKELETAL: Reports pain to RLE/R posterior calf. Denies back pain. NEUROLOGIC: Reports chronic numbness in BLE. Denies headache, weakness. All systems reviewed & are unremarkable except as noted in HPI and below PMFSH Past Medical History Medical History Anxiety BPH (benign prostatic hyperplasia) Chronic, continuous use of opioids COPD (chronic obstructive pulmonary disease) Depression DVT (deep venous thrombosis) right leg 2015 Dyslipidemia Dyspepsia Dysphagia GERD (gastroesophageal reflux disease) Hypertension NSAID long-term use NELLY (obstructive sleep apnea) PAF (paroxysmal atrial fibrillation) Retention of urine Surgical History Surgical History H/O bilateral inguinal hernia repair History of back surgery X2. L4-L5 Family History Family History Father Alcoholism Mother Alcoholism Social History Social History (Reviewed 10/15/21 @ 17
[2021-10-15 17:20] LABS: Basophils Absolute Auto 0.1 K/mm3 (0.0-0.1); Basophils Percent Auto 0.7 % (0.2-1.2); Eosinophils Absolute Auto 0.3 K/mm3 (0-0.3); Eosinophils Percent Auto 2.9 % (0-4.4); Hematocrit 41.8 % (42.0-52.0); Hemoglobin 13.4 g/dL (14.0-18.0); Immature Granulocyte Absolute 0.03 K/mm3 (0.00-0.031); Immature Granulocyte Percent A 0.3 % (0-0.5); Lymphocytes Absolute Auto 1.75 K/mm3 (0.9-3.2); Mean Corpuscular HGB Conc 32.1 g/dl (32-36); Mean Corpuscular Volume 87.4 fl (80-100); Mean Platelet Volume 10.6 fl (7.4-10.4); Monocytes Absolute Auto 0.7 K/mm3 (0.1-0.6); Monocytes Percent Auto 7.3 % (2.6-8.5); Neutrophils Absolute Auto 6.9 K/mm3 (1.3-6.7); Neutrophils Percent Auto 70.8 % (45.5-73.1); Platelet Count Result 198 k/mm3 (150-375); Red Blood Count 4.78 M/mm3 (4.6-6.20); White Blood Count 9.7 K/mm3 (4.5-10.0)
[2021-10-15 17:28] LABS: Prothrombin Time 22.2 Seconds (11.1-14.7)
[2021-10-15 17:29] LABS: Partial Thromboplastin Time 68.1 SECONDS (22.3-36.8)
[2021-10-15 17:30] LABS: Alanine Aminotransferase 21 U/L (6-50); Albumin Level 4.5 g/dL (3.5-5.1); Alkaline Phosphatase 95 U/L (38-126); Anion Gap 7 mmol/L (8-16); Aspartate Amino Transferase 20 U/L (17-59); Bilirubin,Total 0.2 mg/dL (0.2-1.3); Blood Urea Nitrogen 19 mg/dL (9-20); CRP 3.3 mg/dL (<1.0); Calcium 8.7 mg/dL (8.4-10.2); Carbon Dioxide 25 mmol/L (22-30); Chloride 108 mmol/L (98-107); Estimated CRCL calculation 69 ml/min; Estimated Glomerular Filt Rate > 60; Glucose 109 mg/dL (65-110); Sodium 140 mmol/L (137-145)
--- NOTE | 2021-10-15 17:50 | ECG_ITS ---
Measurements Intervals [place] Rate: 68 P: -9 NV: 163 QRS: 11 QRSD: 190 T: -11 QT: 440 QTc: 468 Interpretive Statements SINUS RHYTHM RIGHT BUNDLE BRANCH BLOCK ABNORMAL ECG Electronically Signed On 10-15-2021 20:39:20 CDT by Taras Yeung D.O.
[2021-10-15 18:02] LABS: Erythrocyte Sedimentation Rate 17 mm/hr (0-20)
[2021-10-15 18:06] LABS: D Dimer 0.33 ug/mL (<0.48)
[2021-10-15 18:13] LABS: Hemoglobin A1C 5.9 % (<5.7)
[2021-10-15 18:29] LABS: Troponin I < 0.012 ng/mL (0.000-0.034)
== END 2021-10-15 20:03 | disposition home or self-care (01) ==
PROVIDERS: Physician Assistant; Emergency Provider Emergency Medicine; PCP Family Medicine
DX: L03.115 Cellulitis of right lower limb (principal); L97.519 Non-pressure chronic ulcer of other part of right foot with unspecified severity; R73.03 Prediabetes; J44.9 Chronic obstructive pulmonary disease, unspecified; E78.5 Hyperlipidemia, unspecified; I10 Essential (primary) hypertension; I48.0 Paroxysmal atrial fibrillation; K21.9 Gastro-esophageal reflux disease without esophagitis; N40.0 Benign prostatic hyperplasia without lower urinary tract symptoms; G47.33 Obstructive sleep apnea (adult) (pediatric); F32.A Depression, unspecified; F41.9 Anxiety disorder, unspecified; Z86.718 Personal history of other venous thrombosis and embolism; Z79.01 Long term (current) use of anticoagulants; Z79.82 Long term (current) use of aspirin; F17.210 Nicotine dependence, cigarettes, uncomplicated
CPT/HCPCS: 36415; 71046; 73660; 80053; 83036; 84484; 85025; 85055; 85380; 85610; 85652; 85730; 86140; 93005; 93971; 99284

== ENCOUNTER 2021-10-21 15:57 | Outpatient (CLI) | payer MEDICARE, SELFPAY ==
[2021-10-21 17:08] LABS: Basophils Absolute Auto 0.1 K/mm3 (0.0-0.1); Basophils Percent Auto 0.8 % (0.2-1.2); Eosinophils Absolute Auto 0.4 K/mm3 (0-0.3); Eosinophils Percent Auto 3.7 % (0-4.4); Hematocrit 42.2 % (42.0-52.0); Hemoglobin 13.3 g/dL (14.0-18.0); Immature Granulocyte Absolute 0.05 K/mm3 (0.00-0.031); Immature Granulocyte Percent A 0.5 % (0-0.5); Lymphocytes Absolute Auto 2.16 K/mm3 (0.9-3.2); Mean Corpuscular HGB Conc 31.5 g/dl (32-36); Mean Corpuscular Hemoglobin 27.7 pg (26-34); Mean Corpuscular Volume 87.9 fl (80-100); Mean Platelet Volume 11.1 fl (7.4-10.4); Monocytes Absolute Auto 0.8 K/mm3 (0.1-0.6); Monocytes Percent Auto 8.2 % (2.6-8.5); Neutrophils Absolute Auto 6.4 K/mm3 (1.3-6.7); Neutrophils Percent Auto 64.8 % (45.5-73.1); Platelet Count Result 211 k/mm3 (150-375); Red Cell Distribution Width 15.6 % (11.5-14.5); White Blood Count 9.8 K/mm3 (4.5-10.0)
[2021-10-21 18:14] LABS: Erythrocyte Sedimentation Rate 15 mm/hr (0-20)
== END 2021-10-21 15:58 | disposition home or self-care (01) ==
LOC: ANHLAB 16:02
PROVIDERS: PCP Family Medicine; Visit Provider Podiatrist Foot & Ankle Surgery
DX: M86.171 Other acute osteomyelitis, right ankle and foot (principal)
CPT/HCPCS: 36415; 85025; 85652; 86140

== ENCOUNTER 2021-10-22 10:42 | Outpatient (CLI) | payer MEDICARE, SELFPAY ==
--- NOTE | ~2021-10-22 | MR_ITS ---
EXAMINATION: MR foot RT wo con DATE: 10/22/2021 11:31 INDICATION: Osteomyelitis TECHNIQUE: Magnetic resonance imaging (MRI) of the right fore/mid foot was performed without intraven ous contrast. Sequences included axial, sagittal and coronal T1-weighted FSE, sagittal fluid sensitiv e FSE STIR and axial and coronal T2-weighted FS FSE. COMPARISON: Radiographs dated 10/15/2021 FINDINGS: The second-fourth toes are mildly clawed. Bone alignment is otherwise normal. Prominent soft tissue s welling and subcutaneous edema about the distal phalanx of the right second distal phalanx. Diffuse m arrow edema with loss of T1 fat signal throughout the distal phalanx and subtle cortical erosion at t he tuft consistent with osteomyelitis. No joint effusion at the distal interphalangeal joint or abnor mal marrow signal in the immediately adjacent middle phalanx to suggest septic arthritis or more prox imal osteomyelitis. Severe osteoarthritis with prominent subarticular cystic and edema-like signal change at the navicula r cuneiform and second tarsal metatarsal joints. Moderate osteoarthritis with additional subarticular edema-like signal change at the third tarsal metatarsal joint as well as the articulation between th e cuboid and the lateral cuneiform. Mild osteoarthritis at the remaining tarsal metatarsal, first met atarsophalangeal and several of the interphalangeal joints. No fracture. Lisfranc ligament complex an d the collateral ligament complexes at the metatarsophalangeal and interphalangeal joints are normal. Visualized portions of the flexor and extensor tendons are normal. Mild fatty atrophy of the intrins ic musculature of the foot with feathery muscular edema in the forefoot centered about the second met atarsal. No abscess. IMPRESSION: 1. Osteomyelitis involving the second distal phalanx. 2. 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 Reviewed, dictated and finalized at location B.
== END 2021-10-22 10:43 | disposition home or self-care (01) ==
PROVIDERS: PCP Family Medicine; Visit Provider Podiatrist Foot & Ankle Surgery
DX: M86.171 Other acute osteomyelitis, right ankle and foot (principal); M19.071 Primary osteoarthritis, right ankle and foot
CPT/HCPCS: 73718

== ENCOUNTER 2021-10-25 01:01 | Day surgery (SDC) | payer MEDICARE, SELFPAY ==
[2021-10-23 15:24] VITALS: BMI 42.3
--- NOTE | 2021-10-23 15:44 | PC.NURSE ---
Report to the Outpatient Waiting Room, entrance under the green pavilion located off [facility], at time 0700 on date 10/25/21. OR Time: 0900. - You and your visitor will be asked a series of questions to screen for COVID 19 for your protection. - Only one visitor is allowed at this time. - The patient visitor is requested to leave or wait in car when not with patient. - A mask is required within the hospital. Patients may have clear liquids (water, carbonated beverages, clear teas, apple juice) until 3 hours prior to surgery with a maximum of 20 ounces. - No food from midnight until time of surgery Take the following medications with a SIP of water the morning of surgery: INHALERS, ANTIBIOTICS, CLONIDINE, GABAPENTIN, HYDRALAZINE, VENLAFAXINE, PAIN PILL (IF NEEDED) Medications to discontinue per physician: VITAMINS/SUPPLEMENTS, XARELTO Date to take last dose: NO MORE UNTIL AFTER SURGERY (PT STATES LAST DOSE OF XARELTO 10/22) Please no make-up, nail urdu, hairspray, perfume, deodorant, or body powder the day of surgery. No jewelry (including any body piercings) or valuables the day of surgery, leave them at home. Please take a shower or bath the night before, or the morning of, surgery with an antibacterial soap. Wear comfortable, loose fitting clothing. - Jewelry must be removed prior to entering the operating room. Rings and piercings that are not removed may be cut off. - The hospital will not accept responsibility for valuables. - Please leave all valuables, including medications, at home the day of surgery. If you are going home after surgery, a licensed crew truck driver must drive you home. - NO public transportation without another adult. - We recommend that an adult stay with you for 24 hours following discharge. - We also recommend that you do not drive, make important decision, drink alcoholic beverages, or take any drugs that were not prescribed by your health care provider for at least 24 hours after your discharge time. Follow any additional instructions given to you from your surgeon. If you or anyone in your household have experienced Covid symptoms in the past week, please notify your surgeon or the nurse liaison at the phone number below for possible testing. Telephone instructions given to PT - MEGHANN DASILVA and asked if any additional questions and then verbalized understanding. Patient advised to call surgeon office or pre surgery nurse liaison [phone] if any additional questions.
--- NOTE | 2021-10-24 08:19 | WPDANESEPPF ---
Anes - Initial Pre Proc Eval Procedure: Operation Date: 10/25/21 09:00 Proposed Procedures p Partial Second Digit Amputation of Right Foot - Good Sadler JR, MD Date/Time: 10/24/21 08:19 Surgeon: Good Sadler JR, MD Pre Op Diagnosis: osteomyelitis 2nd digit right foot Patient Data Age: 61 Gender: M Height: 1.85 m Weight: 145.6 kg Allergies Allergy/AdvReac Type Severity Reaction Status Date / Time Penicillins Allergy Unknown Anaphylaxis Verified 10/25/21 07:35 hydrocodone AdvReac Intermediate makes me Verified 10/25/21 07:35 mean Home Medications Medication Instructions Recorded Confirmed Type albuterol sulfate 90 mcg/actuation 1 puff inhalation Q4H PRN Wheezing 04/20/19 10/25/21 History aerosol inhaler (Ventolin HFA) hydralazine 100 mg tablet 100 mg PO BID 04/20/19 10/25/21 History nitroglycerin 0.4 mg sublingual 0.4 mg sublingual Q5M PRN Pain 04/20/19 10/25/21 History tablet (Nitrostat) tamsulosin 0.4 mg capsule 0.4 mg PO DAILY 04/20/19 10/25/21 History trazodone 100 mg tablet 100 mg PO HS 04/20/19 10/25/21 History venlafaxine 225 mg tablet,extended 225 mg PO DAILY 04/20/19 10/25/21 History release 24 hr labetalol 100 mg tablet 100 mg PO Q12H 02/01/20 10/25/21 History rivaroxaban 20 mg tablet (Xarelto) 20 mg PO DAILY 02/01/20 10/23/21 History gemfibrozil 600 mg BYMOUTH BID 10/01/20 10/25/21 History montelukast 10 mg tablet 10 mg PO DAILY 10/01/20 10/25/21 History (Singulair) ferrous sulfate 325 mg (65 mg 324 mg PO BIDWM #60 tabs 10/04/20 10/25/21 Rx iron) tablet gabapentin 300 mg capsule 300 mg PO TID #90 caps 10/04/20 10/25/21 Rx (Neurontin) clonidine HCl 0.1 mg tablet 0.3 mg PO BID 12/05/20 10/25/21 History oxycodone-acetaminophen 10 mg-325 1 tablet PO Q6H PRN pain (scale 02/19/21 10/25/21 Rx mg tablet score 7-10) #60 tabs budesonide 160 mcg-glycopyr 9 See Rx Instructions .Route 10/15/21 10/25/21 Rx mcg-formot 4.8 mcg/actuation HFA .COMPLEX #3 ea inhaler (Breztri Aerosphere) clindamycin HCl 300 mg capsule 300 mg PO Q6H 7 days #28 caps 10/15/21 10/25/21 Rx finasteride 5 mg tablet 5 mg PO DAILY 10/23/21 10/25/21 History sulfamethoxazole 800 1 tablet PO BID 10/23/21 10/25/21 History mg-trimethoprim 160 mg tablet vibegron 75 mg tablet (Gemtesa) 75 mg PO DAILY 10/23/21 10/25/21 History Patient hx anesthesia problems: none Family hx anesthesia problems: none Results Review: All pre-operative results and documents have been reviewed as part of the pre-operative evaluation. COUNTS INCLUDE 234 BEDS AT THE [facility] Past Medical History Medical History (Updated 10/24/21 @ 08:24 by Bc Tariq MD) Anxiety BPH (benign prostatic hyperplasia) Cervicalgia Chronic, continuous use of opioids COPD (chronic obstructive pulmonary disease) Depression DVT (deep venous thrombosis) right leg 2015 Dyslipidemia Dyspepsia Dysphagia GERD (gastroesophageal reflux disease) History of venous thromboembolism Hypertension NSAID long-term use Obesity NELLY (obstructive sleep apnea) PAF (paroxysmal atrial fibrillation) Retention of urine Tobacco abuse Surgical History Surgical History H/O bilateral inguinal hernia repair History of back surgery X2. L4-L5 Family History Family History Father Alcoholism Mother Alcoholism Social History Social History Social History: The patient lives with his significant other for the last 2 years. The patient is . Patient is disabled. The patient has 1 biological child another step children. The patient is a full code. His significant other is a durable power banking attorney for healthcare. The patient does continue to smoke every day. The patient stated that he quit drinking years ago. He does use marijuana. Smoking packs per day: 1 Smoking cigarettes per day: 20.0 Years smoked:
[2021-10-25 07:13] VITALS: BP 165/92; PULSE 64; RESP 16; TEMP 36.2; O2SAT 99
--- NOTE | 2021-10-25 07:18 | WPDHPUPDATE1 ---
History and Physical Update Update Date/Time: 10/25/21 07:18 History and Physical has been reviewed, including an updated exam of the patient. There are NO changes in the patient's condition. Risks, benefits, and alternatives have been discussed and questions answered. Patient agrees to proceed with procedure.
[2021-10-25] MEDS: LACTATED RINGERS 1,000 ML 30 ML IV CONT (07:50)
[2021-10-25] MEDS: ceFAZolin 3 GM/D5W 100 ML 100 ML IVPB (09:05)
[2021-10-25] MEDS: BUPIVACAINE HCL 0.25% PF 30 ML VIAL 10 ML INFILTRATE (09:17)
[2021-10-25] MEDS: LIDOCAINE HCL 2% LOCAL INJ 20 ML VIAL 10 ML INFILTRATE (09:17)
[2021-10-25 09:45] VITALS: BP 136/83; PULSE 63; RESP 14; O2SAT 98
--- NOTE | 2021-10-25 10:10 | W.PM.PROC2 ---
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 Description of Procedure Under mild sedation, the patient was brought to the operating room, placed on the operating table in the supine position. A pneumatic ankle tourniquet was placed about the patient's ankle. Following general anesthesia, I performed a proximal 2nd metatarsal Lucas Block utilizing 25cc's of 2% Lidocaine plain and 0.5% Marcaine plain in a one to one mix. The foot was then scrubbed, prepped, and draped in the usual aseptic manner. An Esmarch bandage was then used to examine the patient's foot and pneumatic ankle tourniquet was then inflated. Surgery began in the following manner. Attention was directed to the dorsal aspect of the 2nd digit distal interphalngea joint, where a modified fishmouth mouth style incision was made about the shaft of the middle phalanx of the the 2nd digit. The incision was continued deep down through the subcutaneous tissues using sharp and blunt dissection. All bleeders were cauterized as necessary. A full thickness incision was made overlying the 2nd distal interphalangeal joint, disarticulating the 2nd digit distal phalnx and distal 2nd digit. The distal 2nd digit was removed from the operative site and placed on the back table and later sent for gross and histopathology. The remaining tissue was healthy and bleeding. The cartilage to the 2nd digit middle phalanx head was normal and healthy, it was partially resected to allow for closure of the amputation site. The wound site was then flushed with copious amounts of sterile saline. Next, the skin was reapproximated and coapted utilizing 4-0 Prolene in simple interrupted suture fashion technique. Upon completion of the procedure, the incision was dressed with Steri-Strips, Adaptic, 4 x 4's, Kerlix, and Coban. The pneumatic ankle tourniquet was then deflated and a prompt hyperemic response noted to all digits of the foot. A surgical shoe was then applied. The patient did very well with the procedure and the anesthesia. The patient was transferred to the recovery room with vital signs stable and vascular status intact to all remaining toes of the affected foot. Following a period of postoperative monitoring, the patient will be discharged home on the following written and oral postoperative instructions: 1. Keep the dressing clean, dry, and intact. Use a cast protector bag with showers. 2. The patient should use a surgical shoe for ambulation postoperatively. 3. The patient should be on bedrest with bathroom privileges and elevate the affected foot when at rest. 4. The patient to contact Dr. Sadler for all postop care and if any problems arise. 5. Tylenol 325 will be taken every 6 hours as needed for severe pain. Estimated Blood Loss 1 Pathology Yes (Distal 2nd digit and head of the middle phalanx sent for gross and histopathology) Complications No immediate complications Condition Stable Disposition Same day
[2021-10-25 10:15] VITALS: BP 143/83; PULSE 60; RESP 16
== END 2021-10-25 10:40 | disposition home or self-care (01) ==
PROVIDERS: PCP Family Medicine; Visit Provider Podiatrist Foot & Ankle Surgery
PROC: (CPT 28825; principal; 2021-10-25 09:00)
DX: M86.171 Other acute osteomyelitis, right ankle and foot (principal); G62.9 Polyneuropathy, unspecified; J44.9 Chronic obstructive pulmonary disease, unspecified; E78.5 Hyperlipidemia, unspecified; I10 Essential (primary) hypertension; K21.9 Gastro-esophageal reflux disease without esophagitis; N40.0 Benign prostatic hyperplasia without lower urinary tract symptoms; G47.33 Obstructive sleep apnea (adult) (pediatric); I48.0 Paroxysmal atrial fibrillation; F41.9 Anxiety disorder, unspecified; F32.A Depression, unspecified; F12.90 Cannabis use, unspecified, uncomplicated; F10.21 Alcohol dependence, in remission; Z79.891 Long term (current) use of opiate analgesic; Z86.718 Personal history of other venous thrombosis and embolism; Z87.891 Personal history of nicotine dependence; E66.01 Morbid (severe) obesity due to excess calories; Z68.41 Body mass index [BMI] 40.0-44.9, adult; Z79.51 Long term (current) use of inhaled steroids; Z79.01 Long term (current) use of anticoagulants
CPT/HCPCS: 28825; 88305; 88311; J0690; J2250; J3010; J7120

== ENCOUNTER 2022-01-29 11:38 | Outpatient (CLI) | payer MEDICARE, SELFPAY ==
[2022-01-29 12:30] LABS: Cholesterol 168 mg/dL (0-200); HDL Direct 45 mg/dL; Triglycerides 109 mg/dL (<150)
[2022-01-29 12:41] LABS: LDL Cholesterol Direct 101 mg/dL
== END 2022-01-29 11:39 | disposition home or self-care (01) ==
LOC: ANHLAB 11:45
PROVIDERS: PCP Family Medicine; Visit Provider Internal Medicine Cardiovascular Disease
DX: E78.5 Hyperlipidemia, unspecified (principal)
CPT/HCPCS: 36415; 80061

== ENCOUNTER 2022-05-09 17:21 | Emergency (ER) | payer MEDICARE, SELFPAY ==
[2022-05-09] VITALS (14 sets, daily range): BP systolic 181–244; BP diastolic 115–148; PULSE 72–97; RESP 12–23; TEMP 36.6; O2SAT 96–100
--- NOTE | ~2022-05-09 | XR_ITS ---
EXAMINATION: XR chest 2V DATE: 05/09/2022 18:00 INDICATION: Shortness of breath TECHNIQUE: AP and lateral views of the chest are obtained. COMPARISON: 10/15/2021 FINDINGS: The lungs are free of acute opacities. No pleural effusion or pneumothorax. Cardiomegaly is noted. There is mild thoracic spondylosis. A chronic T8 compression fracture is again noted and unch anged. IMPRESSION: 1. Cardiomegaly. Reviewed, dictated and finalized at location F. TLE VENEERING SUPERVISOR IMPRESSION: 1. Cardiomegaly.
--- NOTE | ~2022-05-09 | CT_ITS ---
EXAMINATION: CT brain wo con INDICATION: Hypertension, headache COMPARISON: None TECHNIQUE: Standard unenhanced head CT. The dose-length product (DLP) was 681.00 mGy-cm. The mA was a djusted according to patient size. Iterative reconstruction technique was employed. FINDINGS: There is no acute intraparenchymal hemorrhage. No evidence of mass lesion. No evidence of a cute infarction. There is mild periventricular and subcortical hypodensity probably related to small vessel ischemic disease. There is mild prominence of the sulci and ventricles related to cerebral atr ophy. Intracranial calcified cerebral atherosclerosis is noted. There are no extra-axial collections. There is no mass effect or midline shift. The orbits and soft tissues are unremarkable. There is a s mall right mastoid effusion. IMPRESSION: 1. No acute intracranial abnormality. 2. Age related findings. Reviewed, dictated and finalized at location F. IC INSPECTOR
--- NOTE | 2022-05-09 17:25 | ECG_ITS ---
Measurements Intervals [place] Rate: 88 P: 10 DC: 152 QRS: 20 QRSD: 184 T: -16 QT: 404 QTc: 491 Interpretive Statements SINUS RHYTHM RIGHT BUNDLE BRANCH BLOCK ST-T WAVE ABNORMALITY IN ANTEROLAT/INF LEADS- CONSIDER ISCHEMIA ABNORMAL ECG COMPARED TO ECG 10/15/2021 18:10:11 ST-T WAVE ABNORMALITY NOW PRESENT Electronically Signed On 05-09-2022 17:32:31 ICU CLERK by Taras Yeung D.O.
[2022-05-09 17:40] LABS: Basophils Absolute Auto 0.1 K/mm3 (0.0-0.1); Basophils Percent Auto 0.8 % (0.2-1.2); Eosinophils Absolute Auto 0.3 K/mm3 (0-0.3); Eosinophils Percent Auto 2.7 % (0-4.4); Hematocrit 46.1 % (42.0-52.0); Hemoglobin 15.2 g/dL (14.0-18.0); Immature Granulocyte Absolute 0.06 K/mm3 (0.00-0.031); Immature Granulocyte Percent A 0.6 % (0-0.5); Lymphocytes Absolute Auto 2.42 K/mm3 (0.9-3.2); Lymphocytes Percent Auto 22.4 % (18.3-44.2); Mean Corpuscular Hemoglobin 28.1 pg (26-34); Mean Corpuscular Volume 85.2 fl (80-100); Mean Platelet Volume 10.9 fl (7.4-10.4); Monocytes Percent Auto 8.9 % (2.6-8.5); Neutrophils Percent Auto 64.6 % (45.5-73.1); Platelet Count Result 213 k/mm3 (150-375); Red Blood Count 5.41 M/mm3 (4.6-6.20); Red Cell Distribution Width 15.5 % (11.5-14.5); White Blood Count 10.8 K/mm3 (4.5-10.0)
[2022-05-09 17:51] LABS: Alanine Aminotransferase 40 U/L (6-50); Albumin Level 4.5 g/dL (3.5-5.1); Alkaline Phosphatase 89 U/L (38-126); Anion Gap 9 mmol/L (8-16); Aspartate Amino Transferase 36 U/L (17-59); Bilirubin,Total 0.5 mg/dL (0.2-1.3); Blood Urea Nitrogen 15 mg/dL (9-20); Calcium 9.1 mg/dL (8.4-10.2); Carbon Dioxide 26 mmol/L (22-30); Chloride 106 mmol/L (98-107); Estimated CRCL calculation 113 ml/min; Estimated Glomerular Filt Rate > 60; Glucose 96 mg/dL (65-110); INR 1.1; Lipase 101 U/L (23-300); Potassium 3.9 mmol/L (3.4-5.0); Prothrombin Time 13.3 Seconds (11.1-14.7); Sodium 141 mmol/L (137-145)
[2022-05-09 18:02] LABS: Troponin I < 0.012 ng/mL (0.000-0.034)
--- NOTE | 2022-05-09 18:11 | ED.RECABL ---
HPI - Recheck/Abnormal Lab/Rx General Chief Complaint: Recheck/Abnormal Lab/Rx <Dana Tong PA-C - Last Filed: 05/10/22 01:21> Stated Complaint: blood pressure issues <Dana Tong PA-C - Last Filed: 05/10/22 01:21> Time Seen by Provider: 05/09/22 17:55 <Dana Tong PA-C - Last Filed: 05/10/22 01:21> Source: patient <Dana Tong PA-C - Last Filed: 05/10/22 01:21> Mode of arrival: ambulatory <Dana Tong PA-C - Last Filed: 05/10/22 01:21> Limitations: no limitations <Dana Tong PA-C - Last Filed: 05/10/22 01:21> History of Present Illness HPI narrative: This is a 61-year-old male that presents to the emergency department for an anxiety attack. Reports he has had increased stress in his life recently. He has been having panic attacks. Reports he was trying to get some rest today when he all of a sudden started to feel very anxious. He felt like he could not get any air. He started to feel chest pressure. Reports this has somewhat improved since onset. He also wanted to be evaluated for his blood pressure as well. Reports it has been elevated the last couple of days. He is unsure if he has been taking his antihypertensives as prescribed. Denies headache, visual changes, numbness, weakness, or lower extremity edema. <Dana Tong PA-C - Last Filed: 05/10/22 01:21> Related Data Home Medications: Home Medications Medication Instructions Recorded Confirmed albuterol sulfate 90 mcg/actuation 1 puff inhalation Q4H PRN Wheezing 04/20/19 01/28/22 aerosol inhaler (Ventolin HFA) hydralazine 100 mg tablet 100 mg PO BID 04/20/19 01/28/22 nitroglycerin 0.4 mg sublingual 0.4 mg sublingual Q5M PRN Pain 04/20/19 01/28/22 tablet (Nitrostat) tamsulosin 0.4 mg capsule 0.4 mg PO DAILY 04/20/19 01/28/22 trazodone 100 mg tablet 100 mg PO HS 04/20/19 01/28/22 venlafaxine 225 mg tablet,extended 225 mg PO DAILY 04/20/19 01/28/22 release 24 hr labetalol 100 mg tablet 100 mg PO Q12H 02/01/20 01/28/22 rivaroxaban 20 mg tablet (Xarelto) 20 mg PO DAILY 02/01/20 01/28/22 gemfibrozil 600 mg BYMOUTH BID 10/01/20 01/28/22 montelukast 10 mg tablet 10 mg PO DAILY 10/01/20 01/28/22 (Singulair) clonidine HCl 0.1 mg tablet 0.3 mg PO BID 12/05/20 01/28/22 finasteride 5 mg tablet 5 mg PO DAILY 10/23/21 01/28/22 sulfamethoxazole 800 1 tablet PO BID 10/23/21 01/28/22 mg-trimethoprim 160 mg tablet vibegron 75 mg tablet (Gemtesa) 75 mg PO DAILY 10/23/21 01/28/22 <Dana Tong PA-C - Last Filed: 05/10/22 01:21> Allergies/Adverse Reactions: Allergies Allergy/AdvReac Type Severity Reaction Status Date / Time Penicillins Allergy Unknown Anaphylaxis Verified 01/28/22 09:43 hydrocodone AdvReac Intermediate makes me Verified 01/28/22 09:43 mean <Dana Tong PA-C - Last Filed: 05/10/22 01:21> Review of Systems Review of Systems: CONSTITUTIONAL: Denies fever EYES: Denies visual changes CARDIOVASCULAR: Reports chest pain. Denies edema. RESPIRATORY: Reports dyspnea. NEUROLOGIC: Denies headache, numbness, or weakness. PSYCHIATRIC: Reports anxiety and depression. <GLENN Ying Last Filed: 05/10/22 01:21> All systems reviewed & are unremarkable except as noted in HPI and below <Dana Tong PA-C - Last Filed: 05/10/22 01:21> PENDING SALE TO [facility] Past Medical History Medical History: Medical History Anxiety BPH (benign prostatic hyperplasia) Cervicalgia Chronic, continuous use of opioids COPD (chronic obstructive pulmonary disease) Depression DVT (deep venous thrombosis) right leg 2016 Dyslipidemia Dyspepsia Dysphagia GERD (gastroesophageal reflux disease) History of venous thromboembolism Hypertension NSAID long-term use Obesity NELLY (obstructive sleep apnea) PAF (paroxysmal atrial fibrillation) Retention of urine Tobacco abuse <Dana Tong PA-C - Last Filed: 05/10/22 01:2
[2022-05-09] MEDS: LABETALOL HCL 100 MG TABLET PO (19:05)
[2022-05-09] MEDS: hydrALAZINE HCL 50 MG TABLET PO (19:06)
[2022-05-09] MEDS: LORazepam (*CRX) 0.5 MG TABLET PO (19:55)
[2022-05-09 21:06] LABS: Troponin I < 0.012 ng/mL (0.000-0.034)
[2022-05-09] MEDS: hydrALAZINE HCL 20 MG/ML VIAL 10 MG IV PUSH (21:51)
[2022-05-09] MEDS: NITROGLYCERIN OINTMENT 1 INCH DOSE TRANSDERM (21:51)
--- NOTE | 2022-05-09 23:31 | PM.IMHP ---
H&P: HPI History of Present Illness Date/Time: 05/09/22 23:31 [facility] Past Medical History Medical History (Reviewed 01/28/22 @ 09:44 by Maria Ines Beal [facility]) Anxiety BPH (benign prostatic hyperplasia) Cervicalgia Chronic, continuous use of opioids COPD (chronic obstructive pulmonary disease) Depression DVT (deep venous thrombosis) right leg 2015 Dyslipidemia Dyspepsia Dysphagia GERD (gastroesophageal reflux disease) History of venous thromboembolism Hypertension NSAID long-term use Obesity NELLY (obstructive sleep apnea) PAF (paroxysmal atrial fibrillation) Retention of urine Tobacco abuse Surgical History Surgical History H/O bilateral inguinal hernia repair History of back surgery X2. L4-L5 Family History Family History Father Alcoholism Mother Alcoholism Social History Social History Social History: The patient lives with his significant other for the last 2 years. The patient is . Patient is disabled. The patient has 1 biological child another step children. The patient is a full code. His significant other is a durable power commercial litigation attorney for healthcare. The patient does continue to smoke every day. The patient stated that he quit drinking years ago. He does use marijuana. Smoking packs per day: 1 Smoking cigarettes per day: 20.0 Years smoked: 40 Smoking pack-years: 40.00 Smoking status: Current every day smoker Tobacco type: cigarettes Smoking end date: 10/22/21 Alcohol intake: former Alcohol use details: QUIT ~2009 Substance use: current Substance use type: marijuana Other substance usage details: former alcoholism Last use: daily Living arrangements: with family Gender identity (if verbalized by the patient): Male Spiritual care concerns: No Meds Home Medications and Allergies Home Medications Medication Instructions Recorded Confirmed Type albuterol sulfate 90 mcg/actuation 1 puff inhalation Q4H PRN Wheezing 04/20/19 01/28/22 History aerosol inhaler (Ventolin HFA) hydralazine 100 mg tablet 100 mg PO BID 04/20/19 01/28/22 History nitroglycerin 0.4 mg sublingual 0.4 mg sublingual Q5M PRN Pain 04/20/19 01/28/22 History tablet (Nitrostat) tamsulosin 0.4 mg capsule 0.4 mg PO DAILY 04/20/19 01/28/22 History trazodone 100 mg tablet 100 mg PO HS 04/20/19 01/28/22 History venlafaxine 225 mg tablet,extended 225 mg PO DAILY 04/20/19 01/28/22 History release 24 hr labetalol 100 mg tablet 100 mg PO Q12H 02/01/20 01/28/22 History rivaroxaban 20 mg tablet (Xarelto) 20 mg PO DAILY 02/01/20 01/28/22 History gemfibrozil 600 mg BYMOUTH BID 10/01/20 01/28/22 History montelukast 10 mg tablet 10 mg PO DAILY 10/01/20 01/28/22 History (Singulair) ferrous sulfate 325 mg (65 mg 324 mg PO BIDWM #60 tabs 10/04/20 01/28/22 Rx iron) tablet gabapentin 300 mg capsule 300 mg PO TID #90 caps 10/04/20 01/28/22 Rx (Neurontin) clonidine HCl 0.1 mg tablet 0.3 mg PO BID 12/05/20 01/28/22 History oxycodone-acetaminophen 10 mg-325 1 tablet PO Q6H PRN pain (scale 02/19/21 01/28/22 Rx mg tablet score 7-10) #60 tabs budesonide 160 mcg-glycopyr 9 See Rx Instructions .Route 10/15/21 01/28/22 Rx mcg-formot 4.8 mcg/actuation HFA .COMPLEX #3 ea inhaler (Breztri Aerosphere) clindamycin HCl 300 mg capsule 300 mg PO Q6H 7 days #28 caps 10/15/21 01/28/22 Rx finasteride 5 mg tablet 5 mg PO DAILY 10/23/21 01/28/22 History sulfamethoxazole 800 1 tablet PO BID 10/23/21 01/28/22 History mg-trimethoprim 160 mg tablet vibegron 75 mg tablet (Gemtesa) 75 mg PO DAILY 10/23/21 01/28/22 History Allergies Allergy/AdvReac Type Severity Reaction Status Date / Time Penicillins Allergy Unknown Anaphylaxis Verified 01/28/22 09:43 hydrocodone AdvReac Intermediate makes me Verified 01/28/22 09:43 mean
[2022-05-09] MEDS: hydrOXYzine HCL 25 MG TABLET 50 MG PO (23:49)
--- NOTE | 2022-05-09 23:56 | PC.NURSE ---
pt. repeatedly removing cardiac monitors despite instruction to not
--- NOTE | 2022-05-10 | PC.NURSE ---
Pt. eloped from ambulance bay doors yelling at staff. pt. returned to room 12 and agreeable to wait a few minutes for room placement.
--- NOTE | 2022-05-10 00:20 | PC.NURSE ---
Pt. aggressive, yelling at staff and saying you have done nothing for me I am leaving. pt. refused to sign AMA paperwork or allow staff to remove Nitro patch. BIRGIT Lozano removed pt. IV
== END 2022-05-10 00:25 | disposition home or self-care (01) ==
PROVIDERS: Emergency Provider Emergency Medicine; PCP Family Medicine
DX: I16.0 Hypertensive urgency (principal); F41.9 Anxiety disorder, unspecified; I48.0 Paroxysmal atrial fibrillation; J44.9 Chronic obstructive pulmonary disease, unspecified; E78.5 Hyperlipidemia, unspecified; G47.33 Obstructive sleep apnea (adult) (pediatric); N40.0 Benign prostatic hyperplasia without lower urinary tract symptoms; K21.9 Gastro-esophageal reflux disease without esophagitis; E66.9 Obesity, unspecified; Z68.41 Body mass index [BMI] 40.0-44.9, adult; F32.A Depression, unspecified; F17.210 Nicotine dependence, cigarettes, uncomplicated; Z86.718 Personal history of other venous thrombosis and embolism; Z79.01 Long term (current) use of anticoagulants; I51.7 Cardiomegaly; I45.10 Unspecified right bundle-branch block; R94.31 Abnormal electrocardiogram [ECG] [EKG]
CPT/HCPCS: 36415; 70450; 71046; 80053; 83690; 84484; 85025; 85610; 85730; 93005; 96374; 96375; 99284; A9270; J0131; J0360

== ENCOUNTER 2022-05-12 08:31 | Outpatient (CLI) | payer MEDICARE, SELFPAY ==
--- NOTE | ~2022-05-12 | NM_ITS ---
EXAMINATION: NM noman stress w perfusion DATE: 05/12/2022 10:53 INDICATION: Other forms of dyspnea. TECHNIQUE: Rest images were obtained following intravenous administration of 10.5 mCi Tc99m tetrofosm in (Myoview). The patient was infused intravenously with Lexiscan (regadenoson). Then, 34.3 mCi Tc99m tetrofosmin (Myoview) was administered intravenously, and supine and prone stress images were obtain ed. Data was reconstructed into short axis and horizontal and vertical long axis SPECT images. Gated SPECT images were also obtained. COMPARISON: Chest CT 07/09/2021 FINDINGS: There is no definite reversible or fixed perfusion abnormality to suggest ischemia or infar ction. There is no segmental wall motion abnormality. Left ventricular ejection fraction measures 5 3%. IMPRESSION: 1. No definite ischemia or infarct. 2. Normal left ventricular ejection fraction measuring 53%. Reviewed, dictated and finalized at location A. ECTION CLERK
--- NOTE | 2022-05-12 08:40 | EST_ITS ---
Patient Info Name: Joe Quintana Age: 61 years : 1960 Gender: Male Ht: 73 in Wt: 330 lbs BSA: 2.84 m2 HR: 76 bpm BP: 154 / 106 mmHg Heart Rhythm: Sinus Rhythm Exam Date: 05/12/2022 9:49 AM Exam Location: [facility] Stress Patient Status: Outpatient Admit Date: 05/12/2022 Staff Ordering Physician: Taras Yeung DO Attending Provider: Taras Yeung DO Exercise Technologist: Kika Meza CT Exercise Physician: Taras Yeung DO Exam Type: CA stress noman w NM Study Info Indications R06.09 - Other forms of dyspnea A regadenoson stress test was performed. Summary 1. 1. Negative lexiscan stress test for ischemic ST changes by ECG criteria. 2. 2. Baseline hypertension. 3. 3. Nuclear scan to follow and will be reported separately. Please correlate with it. 4. 4. Patient informed of the above results. Protocol: Lexiscan Stress ECG Details Stage: REST Duration (min): 1 min : 29 sec HR (bpm): 76 SBP (mmHg): 154 DBP (mmHg): 106 Stage: REST Duration (min): 5 min : 45 sec HR (bpm): 78 SBP (mmHg): 153 DBP (mmHg): 104 Stage: STAGE 1 Duration (min): 1 min : 0 sec HR (bpm): 79 SBP (mmHg): 151 DBP (mmHg): 99 Stage: RECOVERY Duration (min): 1 min : 0 sec HR (bpm): 84 SBP (mmHg): 151 DBP (mmHg): 99 Stage: RECOVERY Duration (min): 2 min : 0 sec HR (bpm): 83 SBP (mmHg): 151 DBP (mmHg): 99 Stage: RECOVERY Duration (min): 3 min : 0 sec HR (bpm): 79 SBP (mmHg): 151 DBP (mmHg): 96 Stage: RECOVERY Duration (min): 3 min : 1 sec HR (bpm): 79 SBP (mmHg): 151 DBP (mmHg): 96 Rest HR: 78 bpm Peak HR: 84 bpm Rest Sys BP: 153 mmHg Peak Sys BP: 151 mmHg Max Pred HR: 159 bpm % Max Pred HR: 53 % Target HR: 135 bpm Max RPP: 12,684 bpm*mmHg Termination Reason: Completed protocol Cardiac Symptoms: Shortness of breath Total Time: 1 min : 0 sec Rest Ballard BP: 104 mmHg Peak Ballard BP: 99 mmHg Total Dose: 0.4 mg Resting ECG Sinus rhythm, RBBB. Stress ECG No ST changes. Arrhythmias None. Report Signatures
== END 2022-05-12 08:32 | disposition home or self-care (01) ==
PROVIDERS: PCP Family Medicine; Visit Provider Internal Medicine Cardiovascular Disease
DX: R06.09 Other forms of dyspnea (principal)
CPT/HCPCS: 78452; 93017; A9502; J2785